=== PATIENT | male | born 1995 | race Caucasian/White ===

== ENCOUNTER 2022-04-30 15:21 | Inpatient (IN) | payer BC ==
--- NOTE | 2022-04-30 16:30 | ED ---
Skin/Abscess/FB HPI - General Chief complaint: Skin/Abscess/Foreign Body Stated complaint: Left leg rash/fever/SOB Time Seen by Provider: 04/30/22 16:29 Source: patient, RN notes reviewed Mode of arrival: ambulatory Limitations: no limitations - History of Present Illness Initial comments: Patient is a 26-year-old male who presents to the emergency department for redness of left leg. Patient states the redness appeared after hitting his leg on the car door today. He is adamant that he did not wake up with leg redness. He reports mild pain in his left freeman which is worsened with walking. He denies calf pain. He denies personal and family history of DVT and PE. He denies tobacco use, recent airplane/long car ride travel, known family clotting disorders. He does admit to exertional shortness of breath and cold-like symptoms which began on Thursday. Patient has fever productive cough and congestion which he states is improving. No chest pain. - Related Data Home Medications Medication Instructions Recorded Confirmed No Known Home Medications 04/30/22 04/30/22 Allergies Allergy/AdvReac Type Severity Reaction Status Date / Time No Known Allergies Allergy Verified 04/30/22 17:21 Review of Systems ROS Statement: Those systems with pertinent positive or pertinent negative responses have been documented in the HPI. ROS Other: All systems not noted in ROS Statement are negative. Past Medical History Past Medical History: No Reported History History of Any Multi-Drug Resistant Organisms: None Reported Past Surgical History: No Surgical Hx Reported Past Psychological History: No Psychological Hx Reported Smoking Status: Light tobacco smoker Past Alcohol Use History: Occasional Past Drug Use History: None Reported General Exam Limitations: no limitations General appearance: alert, in no apparent distress Respiratory exam: Present: normal lung sounds bilaterally. Absent: respiratory distress, wheezes, rales, rhonchi, stridor Cardiovascular Exam: Present: normal rhythm, tachycardia, normal heart sounds. Absent: regular rate, systolic murmur, diastolic murmur, rubs, gallop, clicks GI/Abdominal exam: Present: soft, normal bowel sounds. Absent: distended, tenderness, guarding, rebound, rigid Extremities exam: Present: other (erythema, swelling, warmth, blanching of left lower exremity from ankle into proximal freeman. tendern to palpation. cap refill < 2 seconds). Absent: calf tenderness Neurological exam: Present: alert, oriented X3, CN II-XII intact Psychiatric exam: Present: normal affect, normal mood Skin exam: Present: warm, dry, intact, normal color. Absent: rash Course Vital Signs 04/30/22 04/30/22 04/30/22 15:25 18:05 20:30 Temperature 102.8 F H Pulse Rate 151 H 130 H 125 H Respiratory 24 20 20 Rate Blood Pressure 164/86 144/71 139/59 O2 Sat by Pulse 99 98 99 Oximetry Medical Decision Making - Medical Decision Making EKG taken at 18:17, was interpreted by me Sinus tachycardia, no ST segment or T-wave abnormality Ventricular 124, NC interval 178, QRS duration 106, QTC 380 Was pt. sent in by a medical professional or institution ([facility], [facility], urgent care, hospital, or skilled nursing...) When possible be specific @ -No Did you speak to anyone other than the patient for history (EMS, parent, family, police, friend...)? What history was obtained from this source @ -No Did you review nursing and triage notes (agree or disagree)? Why? @ -I reviewed and agree with nursing and triage notes Were old charts reviewed (outside hosp., previous admission, EMS record, old EKG, old radiological studies, urgent care reports/EKG's, skilled nursing records)? Report findings @ -No old charts were reviewed Differential Diagnosis (chest pain, altered mental status, abdominal pain women, abdominal pain men, vaginal bleeding, weakness, fever, dyspnea, syncope, headache, dizziness, GI bleed, back pain, seizure, CVA, palpatations, mental health)? @ -DVT, cellulitis, sepsis, pneumonia, URI EKG interpreted by me (3pts min.). @ -As above X-rays interpreted by me (1pt min.). @ -Yes. Chest x-ray shows increased basilar airspace opacities. Left tibia- fibula x-ray negative for acute process CT interpreted by me (1pt min.). @ -None done U/S interpreted by me (1pt. min.). @ -None done What testing was considered but not performed or refused? (CT, X-rays, U/S, labs)? Why? @ -None What meds were considered but not given or refused? Why? @ -None Did you discuss the management of the patient with other professionals (professionals i.e. , PA, [facility], lab, RT, psych nurse, social worker clinical, ore washer, teacher, psychological operations officer, manager of case)? Give summary @ -No Was smoking cessation discussed for >3mins.? @ -No Was critical care preformed (if so, how long)? @ -No Were there social determinants of health that impacted care today? How? (Homelessness, low income, unemployed, alcoholism, drug addiction, transportation, low edu. Level, literacy, decrease access to med. care, longterm, rehab)? @ -No Was there de-escalation of care discussed even if they declined (Discuss DNR or withdrawal of care, Hospice)? DNR status @ -No What co-morbidities impacted this encounter? (DM, HTN, Smoking, COPD, CAD, Cancer, CVA, ARF, Chemo, Hep., AIDS, mental health diagnosis, sleep apnea, morbid obesity)? @ -None Was patient admitted / discharged? Hospital course, mention meds given and route, prescriptions, significant lab abnormalities, going to OR and other pertinent info. @ -Patient presenting with LLE extremity swelling and exertional shortness of breath. He is well-appearing. No evidence of respiratory distress. No hypoxia. Patient is febrile at 102.6F. There is high suspicion for cellulitis of the LLE. Patient is tachycardic at 150. Blood cultures ordered. IV fluids initiated. Laboratory studies significant for leukocytosis of 22.6. D-dimer is elevated at 1.35. Chest xray shows increased basilar airspace opacities. Patient is septic secondary to pneumonia versus cellulitis, time of diagnosis 18:06. Rocephin and azithromycin initiated. CT of the chest with angio obtained which was nondiagnostic for PE due to bolus timing. Patient is not hypoxic. He does not appear short of breath. He is resting comfortably in bed. I suspect tachycardia related to sepsis. Patient will be admitted. Case discussed with Dr. Giron who accepts admission. Discussed inconclusive CT imaging. Heparin will not be started at this time. Pulm on consult. Undiagnosed new problem with uncertain prognosis? @ -No Drug Therapy requiring intensive monitoring for toxicity (Heparin, Nitro, Insulin, Cardizem)? @ -No Were any procedures done? @ -No] Diagnosis/symptom? @ -sepsis, cellulitis, pneumonia Acute, or Chronic, or Acute on Chronic? @ -acute Uncomplicated (without systemic symptoms) or Complicated (systemic symptoms)? @ -uncomplicated Side effects of treatment? @ -[No] Exacerbation, Progression, or Severe Exacerbation? @ -[No] Poses a threat to life or bodily function? How? (Chest pain, [place], [place], pneumonia, PE, COPD, DKA, ARF, appy, cholecystitis, CVA, Diverticulitis, Homicidal, Suicidal, threat to staff... and all critical care pts) @ yes Dr. Acevedo is my attending - Lab Data Result diagrams: 04/30/22 17:29 04/30/22 17:29 Lab Results 04/30/22 04/30/22 04/30/22 Range/Units 17:29 17:29 17:29 WBC 22.6 H (3.8-10.6) k/uL RBC 4.73 (4.30-5.90) m/uL Hgb 14.3 (13.0-17.5) gm/dL Hct 42.7 (39.0-53.0) % MCV 90.2 (80.0-100.0) fL MCH 30.2 (25.0-35.0) pg MCHC 33.4 (31.0-37.0) g/dL RDW 13.1 (11.5-15.5) % Plt Count 285 (150-450) k/uL MPV 8.5 Neutrophils % 92 % Lymphocytes % 4 % Monocytes % 3 % Eosinophils % 0 % Basophils % 0 % Neutrophils # 20.9 H (1.3-7.7) k/uL Lymphocytes # 0.9 L (1.0-4.8) k/uL Monocytes # 0.6 (0-1.0) k/uL Eosinophils # 0.1 (0-0.7) k/uL Basophils # 0.0 (0-0.2) k/uL D-Dimer 1.35 H (<0.60) mg/L FEU Sodium (137-145) mmol/L Potassium (3.5-5.1) mmol/L Chloride (98-107) mmol/L Carbon Dioxide (22-30) mmol/L Anion Gap mmol/L BUN (9-20) mg/dL Creatinine (0.66-1.25) mg/dL Est GFR (CKD-EPI)AfAm (>60 ml/min/1.73 sqM) Est GFR (CKD-EPI)NonAf (>60 ml/min/1.73 sqM) Glucose (74-99) mg/dL Plasma Lactic Acid Nick (0.7-2.0) mmol/L Calcium (8.4-10.2) mg/dL Total Bilirubin (0.2-1.3) mg/dL AST (17-59) U/L ALT (4-49) U/L Alkaline Phosphatase (38-126) U/L Total Protein (6.3-8.2) g/dL Albumin (3.5-5.0) g/dL Influenza Type A (PCR) Not Detected (Not Detectd) Influenza Type B (PCR) Not Detected (Not Detectd) RSV (PCR) Not Detected (Not Detectd) SARS-CoV-2 (PCR) Not Detected (Not Detectd) 04/30/22 04/30/22 Range/Units 17:29 20:00 WBC (3.8-10.6) k/uL RBC (4.30-5.90) m/uL Hgb (13.0-17.5) gm/dL Hct (39.0-53.0) % MCV (80.0-100.0) fL MCH (25.0-35.0) pg MCHC (31.0-37.0) g/dL RDW (11.5-15.5) % Plt Count (150-450) k/uL MPV Neutrophils % % Lymphocytes % % Monocytes % % Eosinophils % % Basophils % % Neutrophils # (1.3-7.7) k/uL Lymphocytes # (1.0-4.8) k/uL Monocytes # (0-1.0) k/uL Eosinophils # (0-0.7) k/uL Basophils # (0-0.2) k/uL D-Dimer (<0.60) mg/L FEU Sodium 136 L (137-145) mmol/L Potassium 4.0 (3.5-5.1) mmol/L Chloride 100 (98-107) mmol/L Carbon Dioxide 23 (22-30) mmol/L Anion Gap 13 mmol/L BUN 12 (9-20) mg/dL Creatinine 1.10 (0.66-1.25) mg/dL Est GFR (CKD-EPI)AfAm >90 (>60 ml/min/1.73 sqM) Est GFR (CKD-EPI)NonAf >90 (>60 ml/min/1.73 sqM) Glucose 114 H (74-99) mg/dL Plasma Lactic Acid Nick 1.5 (0.7-2.0) mmol/L Calcium 9.3 (8.4-10.2) mg/dL Total Bilirubin 0.9 (0.2-1.3) mg/dL AST 38 (17-59) U/L ALT 54 H (4-49) U/L Alkaline Phosphatase 60 (38-126) U/L Total Protein 7.9 (6.3-8.2) g/dL Albumin 4.6 (3.5-5.0) g/dL Influenza Type A (PCR) (Not Detectd) Influenza Type B (PCR) (Not Detectd) RSV (PCR) (Not Detectd) SARS-CoV-2 (PCR) (Not Detectd) Disposition Clinical Impression: Pneumonia, Sepsis, Cellulitis Disposition: ADMITTED IP TO THIS [facility] Condition: Stable Instructions (If sedation given, give patient instructions): Moderate Sedation in Children (ED) Referrals: Aakash Marin MD [Primary Care Provider] - 1-2 days
--- NOTE | 2022-04-30 17:25 | US ---
EXAMINATION TYPE: US venous doppler duplex LE LT DATE OF EXAM: 04/30/2022 5:18 PM COMPARISON: NONE CLINICAL HISTORY: Left lower extremity swelling and redness. SIDE PERFORMED: Left TECHNIQUE: The lower extremity deep venous system is examined utilizing real time linear array sonog bryant with graded compression, doppler sonography and color-flow sonography. VESSELS IMAGED: Common Femoral Vein Deep Femoral Vein Greater Saphenous Vein * Femoral Vein Popliteal Vein Small Saphenous Vein * Proximal Calf Veins (* superficial vessels) Left Leg: Negative for DVT. Severely limited visualization of the deep venous system entirely from t he groin to the calf due to body habitus and tissue edema. Prominent lymph nodes visualized in the g roin. Grayscale, color doppler, spectral doppler imaging performed of the deep veins of the lower ex tremities. There is normal flow, compressibility, vascular waveforms. IMPRESSION: Extremely limited exam where visualized, No evidence for deep vein thrombosis.
[2022-04-30] MEDS ORDERED: KETOROLAC 15 MG/ML 1 ML VIAL IVP STA (17:46)
[2022-04-30] MEDS ORDERED: SODIUM CHLORIDE 0.9% 2,000 ML IV STA (17:46)
[2022-04-30 18:05] LABS: Basophils % (A) 0 %; Eosinophils # (A) 0.1 k/uL (0-0.7); Eosinophils % (A) 0 %; HCT 42.7 % (39.0-53.0); HGB 14.3 gm/dL (13.0-17.5); Lymphocytes # (A) 0.9 k/uL (1.0-4.8); Lymphocytes % (A) 4 %; MCH 30.2 pg (25.0-35.0); MCHC 33.4 g/dL (31.0-37.0); MCV 90.2 fL (80.0-100.0); Mean Platelet Volume 8.5; Monocytes # (A) 0.6 k/uL (0-1.0); Monocytes % (A) 3 %; Neutrophils # (A) 20.9 k/uL (1.3-7.7); Neutrophils % (A) 92 %; Platelet Count 285 k/uL (150-450); RBC 4.73 m/uL (4.30-5.90); RDW 13.1 % (11.5-15.5); WBC 22.6 k/uL (3.8-10.6)
--- NOTE | 2022-04-30 18:09 | XR ---
EXAMINATION TYPE: XR chest 2V DATE OF EXAM: 04/30/2022 5:39 PM COMPARISON: None TECHNIQUE: XR chest 2V Frontal and lateral views of the chest. CLINICAL INDICATION:Male, 26 years old with history of cough fever; FINDINGS: Lungs/Pleura: Increased basilar airspace opacities. There is no evidence of pleural effusion, or pneu mothorax. Pulmonary vascularity: Unremarkable. Heart/mediastinum: Cardiomediastinal silhouette is unremarkable. Musculoskeletal: No acute osseous pathology. IMPRESSION: Increased basilar airspace opacities correlate for pneumonia
--- NOTE | 2022-04-30 18:10 | XR ---
EXAMINATION TYPE: XR tibia fibula LT DATE OF EXAM: 04/30/2022 5:39 PM INDICATION: Patient age:Male; 26 years old; Reason for study: injury; COMPARISON: None TECHNIQUE: The left tibia/fibula was examined in AP and lateral projections. FINDINGS: No evidence of any acute osseous pathology, joint dislocation, or soft tissue swelling is n oted. Calcaneal plantar enthesophyte Achilles spurring. Patella osteophyte formation. IMPRESSION: 1. No evidence of acute fracture. 2. Mild knee osteoarthrosis.
[2022-04-30 18:12] LABS: ALT 54 U/L (4-49); AST 38 U/L (17-59); African American GFR (CKD) >90 (>60 ml/min/1.73 sqM); Albumin 4.6 g/dL (3.5-5.0); Alkaline Phosphatase 60 U/L (38-126); Anion Gap 13 mmol/L; Blood Urea Nitrogen 12 mg/dL (9-20); Calcium 9.3 mg/dL (8.4-10.2); Carbon Dioxide 23 mmol/L (22-30); Chloride 100 mmol/L (98-107); Glucose 114 mg/dL (74-99); Non-African American GFR(CKD) >90 (>60 ml/min/1.73 sqM); Sodium 136 mmol/L (137-145); Total Bilirubin 0.9 mg/dL (0.2-1.3); Total Protein 7.9 g/dL (6.3-8.2)
[2022-04-30] MEDS ORDERED: AZITHROMYCIN 500 MG in SODIUM CHLORIDE 0.9% 250 ML IVPB STA (18:28)
[2022-04-30] MEDS ORDERED: SODIUM CHLORIDE 0.9% 1,000 ML IV STA (19:21)
--- NOTE | 2022-04-30 19:36 | CT ---
EXAMINATION TYPE: CT chest angio for PE CT DLP: 1143.4 mGycm, Automated exposure control for dose reduction was used. DATE OF EXAM: 04/30/2022 7:30 PM COMPARISON: Chest radiograph from same day. CLINICAL INDICATION:Male, 26 years old with history of SOB elevated dimer; elevated d-dimer TECHNIQUE/CONTRAST: CTA scan of the thorax is performed with IV Contrast, patient injected with 100 mL of Isovue 370, pul monary embolism protocol. MIP images are created and reviewed [facility] FINDINGS: Pulmonary Artery: Nondiagnostic exam for pulmonary embolus due to bolus timing. Lungs/Pleura: No evidence of focal consolidation, pleural effusion or pneumothorax. Airway: Large airways are patent. Heart: Heart is within normal limits for size. Vasculature: No evidence of aortic aneurysm. Mediastinum: No gross evidence of adenopathy. Musculoskeletal: No acute osseous abnormalities Soft Tissues: Unremarkable. Lower neck: No significant findings. Upper Abdomen: Diffuse low-attenuation to the liver parenchyma. IMPRESSION: 1. Nondiagnostic exam for PE due to bolus timing. 2. No acute thoracic process. 3. Hepatic steatosis.
[2022-04-30] MEDS ORDERED: NALOXONE 0.4 MG/ML 1 ML VIAL IV PRN (20:20)
[2022-05-01] MEDS ORDERED: ACETAMINOPHEN TAB 325 MG TAB PO STA (04:42)
[2022-05-01] MEDS: SODIUM CHLORIDE 0.9% 1,000 ML IV SCH ×3 (04:55→21:39)
--- NOTE | 2022-05-01 07:15 | P.HPIM ---
History of Present Illness This is a pleasant 26 years old male with no significant past medical history He is morbidly obese, presents because of sepsis patient states that he was trying to get into his car in the morning when he slipped and bumped his left leg into the car, that time he was wearing pants and he does not have any wants By the evening he noticed is getting more tired than his leg is more red and swollen and start hurting him and she was trying to get in and out of the car therefore he decided to come to emergency room. Also he thought he has a cold as his been having cough and shortness of breath but that's all gone NOW. Patient is currently lying in bed comfortable relaxed does not look in distress denies any chest pain or dyspnea or coughing, no headache dizziness weakness or numbness, no change in urine or bowel habits. However he is left leg is significantly swollen and warm including most of the circumference of the leg from above the left ankle to just below the left knee Patient denies smoking alcohol or illicit drugs, he drinks occasionally and he smokes cigar once every 6 months Patient has a fever 102.8 on admission, he was tachycardic with heart rate 123- 151, the 20 but blood pressure normal Patient has also significant leukocytosis at 22.6. BMP is unremarkable. Liver enzymes are not significantly elevated. Versus other undetected including influenza, RSV and coronavirus D-dimer was mildly elevated soft ultrasound of the next was negative for DVT in the left leg. Chest x-ray showed increased vascular opacity correlating for pneumonia. Left fibula and tibia x-rays negative for acute fracture CT of the chest showing nondiagnostic exam for PE with no acute thoracic process and hepatic steatosis however there is no evidence of focal consolidation of the chest x-ray most likely has false positive result. EKG shows sinus tachycardia at 124 Review of Systems Review of systems CONSTITUTIONAL: No fever, no malaise, no fatigue. HEENT: No recent visual problems or hearing problems. Denied any sore throat. CARDIOVASCULAR: No orthopnea, PND, no palpitations, no syncope. PULMONARY: No shortness of breath, no cough, no hemoptysis. GASTROINTESTINAL: No diarrhea, no nausea, no vomiting, no abdominal pain. Normoactive bowel sounds. NEUROLOGICAL: No headaches, no weakness, no numbness. HEMATOLOGICAL: Denies any bleeding or petechiae. GENITOURINARY: Denies any burning micturition, frequency, or urgency. MUSCULOSKELETAL/RHEUMATOLOGICAL: Denies any joint pain, swelling, or any muscle pain. ENDOCRINE: Denies any polyuria or polydipsia. Past Medical History Past Medical History: No Reported History History of Any Multi-Drug Resistant Organisms: None Reported Past Surgical History: No Surgical Hx Reported Past Psychological History: No Psychological Hx Reported Smoking Status: Light tobacco smoker Past Alcohol Use History: Occasional Past Drug Use History: None Reported Medications and Allergies Home Medications Medication Instructions Recorded Confirmed Type No Known Home Medications 04/30/22 04/30/22 History Allergies Allergy/AdvReac Type Severity Reaction Status Date / Time No Known Allergies Allergy Verified 04/30/22 17:21 Physical Exam Vitals: Vital Signs Temp Pulse Resp BP Pulse Ox 04/30/22 22:13 123 H 20 145/72 95 04/30/22 21:28 100.3 F H 04/30/22 20:30 125 H 20 139/59 99 04/30/22 18:05 130 H 20 144/71 98 04/30/22 15:25 102.8 F H 151 H 24 164/86 99 Intake and Output 04/30/22 04/30/22 05/01/22 14:59 22:59 06:59 Other: Weight 258.593 kg -GENERAL: The patient is alert and oriented x3, not in any acute distress. Moderately obese HEENT: Pupils are round and equally reacting to light. EOMI. No scleral icterus. No conjunctival pallor. Normocephalic, atraumatic. No pharyngeal erythema. No thyromegaly. CARDIOVASCULAR: S1 and S2 present. No murmurs, rubs, or gallops. PULMONARY: Chest is clear to auscultation, no wheezing or crackles. ABDOMEN: Soft, nontender, nondistended, normoactive bowel sounds. No palpable organomegaly. MUSCULOSKELETAL: No joint swelling or deformity. -EXTREMITIES: No cyanosis, clubbing, or pedal edema. Left leg between the left knee and left ankle is red swollen tender and warm NEUROLOGICAL: Gross neurological examination did not reveal any focal deficits. SKIN: No rashes. no petechiae. Results CBC & Chem 7: 04/30/22 17:29 04/30/22 17:29 Labs: Abnormal Lab Results - Last 24 Hours (Table) 04/30/22 04/30/2223 Range/Units 17:29 17:29 17:29 WBC 22.6 H (3.8-10.6) k/uL Neutrophils # 20.9 H (1.3-7.7) k/uL Lymphocytes # 0.9 L (1.0-4.8) k/uL D-Dimer 1.35 H (<0.60) mg/L FEU Sodium 136 L (137-145) mmol/L Glucose 114 H (74-99) mg/dL ALT 54 H (4-49) U/L Assessment and Plan Assessment: Leg cellulitis secondary to blunt trauma Severe sepsis present on admission with fever and tachycardia and tachypnea Morbid obesity Plan: Continue with IV antibiotic, The patient was started on cefazolin Continue with excessive IV hydration Follow-up culture results Consults infectious disease team consult ID team Labs and medication were reviewed.. Continue same treatment. Continue with symptomatic treatment. Resume home medication. Monitor labs and vitals. DVT and GI prophylaxis. Further recommendations as per clinical course of the patient DVT prophylaxis: Subcutaneous heparin GI Prophylaxis: Pepcid PT/OT: Pending Prognosis is guarded
[2022-05-01] MEDS: ACETAMINOPHEN TAB 325 MG TAB PO PRN ×3 (07:27→21:37)
[2022-05-01] MEDS: FAMOTIDINE 20 MG/2 ML VIAL IV SCH ×2 (08:27→22:37)
[2022-05-01] MEDS: HEPARIN SODIUM,PORCINE/PF 5,000 UNIT/0.5 ML SYRINGE SQ SCH ×2 (08:28→22:37)
[2022-05-01 10:39] LABS: Basophils # (A) 0.02 X 10*3/uL (0.00-0.10); Basophils % (A) 0.1 %; Eosinophils # (A) 0 X 10*3/uL (0.04-0.35); Eosinophils % (A) 0 %; HCT 38.8 % (39.6-50.0); HGB 12.6 g/dL (13.0-17.0); Immature Grans, Automated 0.4 %; Lymphocytes # (A) 1.21 X 10*3/uL (0.90-5.00); Lymphocytes % (A) 7.5 %; MCH 29.4 pg (27.0-32.0); MCHC 32.5 g/dL (32.0-37.0); MCV 90.7 fL (80.0-97.0); Mean Platelet Volume 11.2 fL (9.5-12.2); Monocytes % (A) 3.1 %; NRBC Per 100 WBC 0 /100 WBCS (0.0-0.0); Neutrophils # (A) 14.37 X 10*3/uL (1.80-7.70); Neutrophils % (A) 88.9 %; Platelet Count 238 X 10*3/uL (140-440); RBC 4.28 X 10*6/uL (4.40-5.60); RDW 13.5 % (11.5-14.5); WBC 16.16 X 10*3/uL (4.50-10.00)
[2022-05-01 10:52] LABS: African American GFR (CKD) 108.3 (60.0-200.0); BUN/Creat Ratio 10.64 Ratio (12.00-20.00); Blood Urea Nitrogen 11.7 mg/dL (9.0-27.0); Calcium 8.6 mg/dL (8.7-10.3); Non-African American GFR(CKD) 93.5 (60.0-200.0); Potassium 3.7 mmol/L (3.5-5.5)
[2022-05-01] MEDS: ceFAZolin 3 GM in SODIUM CHLORIDE 0.9% 100 ML IVPB SCH (15:50)
[2022-05-01] MEDS ORDERED: IBUPROFEN 200 MG TAB PO PRN (16:03)
--- NOTE | 2022-05-01 22:50 | P.CONS ---
History of Present Illness - Reason for Consult Consult date: 05/01/22 Cellulitis Requesting physician: Mickey Giron - Chief Complaint Left lower extremity swelling and redness x one day - History of Present Illness Patient is a 26-year-old male with no significant past medical history presenting to the ER for evaluation of left lower extremity swelling and redness currently has been going on for for a day before presentation to the hospital patient mentioned that redness appeared after hitting his leg on the car door the day of presentation to the hospital patient did not have any laceration skin breakdown or any drainage the redness has significantly progressed very quickly over the few hours patient be complaining of pain to the left lower extremity be more of a dull aching to sharp it is about 2 out of 10 when he is lying in the bed however is about 5 out of 10 when he walks no open wound or any drainage and did have a fever with chills on presentation to the hospital patient did have a fever of 102.8 degree for night patient has been tachycardic he did have a white count of 22,000 with a left shift kidney function has been normal liver enzymes are normal influenza RSV and COVID testing has been negative patient did have a CT angiogram of the chest nondiagnostic for PE no acute intrathoracic process venous Doppler Limited exam no evidence of DVT patient was started on cefazolin infectious disease was consulted for further management of antibiotic therapy Review of Systems Positive point has been mentioned in the HPI rest of the systems are negative Past Medical History Past Medical History: No Reported History History of Any Multi-Drug Resistant Organisms: None Reported Past Surgical History: No Surgical Hx Reported Past Psychological History: No Psychological Hx Reported Smoking Status: Light tobacco smoker Past Alcohol Use History: Occasional Past Drug Use History: None Reported Medications and Allergies Home Medications Medication Instructions Recorded Confirmed Type Cephalexin [Keflex] 500 mg PO Q6HR #56 cap 05/05/22 Rx Allergies Allergy/AdvReac Type Severity Reaction Status Date / Time No Known Allergies Allergy Verified 04/30/22 17:21 Physical Exam Vitals: Vital Signs Temp Pulse Resp BP Pulse Ox 05/01/22 11:47 101.9 F H 05/01/22 09:00 101 F H 118 H 20 138/77 96 05/01/22 07:00 100.1 F H 122 H 20 138/77 98 05/01/22 06:07 128 H 16 138/67 97 05/01/22 05:37 99.4 F 127 H 16 96 05/01/22 05:09 125 H 98 05/01/22 03:36 103.2 F H 131 H 18 135/63 98 04/30/22 22:13 123 H 20 145/72 95 04/30/22 21:28 100.3 F H 04/30/22 20:30 125 H 20 139/59 99 04/30/22 18:05 130 H 20 144/71 98 04/30/22 15:25 102.8 F H 151 H 24 164/86 99 Intake and Output 04/30/22 05/01/22 05/01/22 22:59 06:59 14:59 Other: Weight 258.593 kg GENERAL DESCRIPTION: Middle-aged male lying in bed, no distress. No tachypnea or accessory muscle of respiration use. HEENT: Shows Pallor , no scleral icterus. Oral mucous membrane is dry. No pharyngeal erythema or thrush NECK: Trachea central, no thyromegaly. LUNGS: Unlabored breathing. Clear to auscultation anteriorly. No wheeze or crackle. HEART: S1, S2, regular rate and rhythm. No loud murmur ABDOMEN: Soft, no tenderness , guarding or rigidity, no organomegaly EXTREMITIES: Extensive swelling redness left lower extremity, which is warm and tender to touch. SKIN: No rash, no masses palpable. NEUROLOGICAL: The patient is awake, alert, oriented x3, mood and affect normal. Results CBC & Chem 7: 05/05/22 06:40 05/05/22 06:40 Labs: Abnormal Lab Results - Last 24 Hours (Table) 04/30/22 04/30/22 04/30/22 Range/Units 17:29 17:29 17:29 WBC 22.6 H (3.8-10.6) k/uL RBC (4.40-5.60) X 10*6/uL Hgb (13.0-17.0) g/dL Hct (39.6-50.0) % Immature Gran # (0.00-0.04) X 10*3/uL Neutrophils # 20.9 H (1.3-7.7) k/uL Lymphocytes # 0.9 L (1.0-4.8) k/uL Eosinophils # (0.04-0.35) X 10*3/uL D-Dimer 1.35 H (<0.60) mg/L FEU Sodium 136 L (137-145) mmol/L BUN/Creatinine Ratio (12.00-20.00) Ratio Glucose 114 H (74-99) mg/dL Calcium (8.7-10.3) mg/dL ALT 54 H (4-49) U/L Procalcitonin (0.02-0.09) ng/mL 05/01/22 05/01/22 05/01/22 Range/Units 08:07 08:07 08:07 WBC 16.16 H (3.8-10.6) k/uL RBC 4.28 L (4.40-5.60) X 10*6/uL Hgb 12.6 L (13.0-17.0) g/dL Hct 38.8 L (39.6-50.0) % Immature Gran # 0.06 H (0.00-0.04) X 10*3/uL Neutrophils # 14.37 H (1.3-7.7) k/uL Lymphocytes # (1.0-4.8) k/uL Eosinophils # 0 L (0.04-0.35) X 10*3/uL D-Dimer (<0.60) mg/L FEU Sodium (137-145) mmol/L BUN/Creatinine Ratio 10.64 L (12.00-20.00) Ratio Glucose 120 H (74-99) mg/dL Calcium 8.6 L (8.7-10.3) mg/dL ALT (4-49) U/L Procalcitonin 2.10 H (0.02-0.09) ng/mL Assessment and Plan (1) Left leg cellulitis Status: Acute Code(s): L03.116 - CELLULITIS OF LEFT LOWER LIMB SNOMED Code(s): 407332460 (2) Sepsis Status: Acute Code(s): A41.9 - SEPSIS, UNSPECIFIED ORGANISM SNOMED Code(s): 34266666 Plan: 1patient presented to hospital with sepsis in this patient who did have fever tachycardia elevated white count source is extensive left lower extremity cellulitis with rapid progression likely related to streptococcal disease clinically doubt MRSA infection. 2we will increase the dose of cefazolin to 3 g every 8 hours because of normal kidney function and weight 3-marked area of the redness 4May need a CT of the left lower extremity to make sure no evidence of any abscess we will hold on adding in today as the patient has received contrast for CT angiogram of the chest yesterday We will follow on clinical condition and cultures to further adjust medication if needed Thank you for this consultation we will follow the patient along with you Time with Patient: Greater than 30
[2022-05-02] MEDS: ceFAZolin 3 GM in SODIUM CHLORIDE 0.9% 100 ML IVPB SCH ×4 (00:03→23:47)
[2022-05-02] MEDS: IBUPROFEN 600 MG TAB PO PRN ×2 (00:14→21:44)
[2022-05-02] MEDS: CLINDAMYCIN 900 MG in DEXTROSE 5% IN WATER 50 ML IVPB SCH ×8 (01:03→23:47)
[2022-05-02] MEDS: SODIUM CHLORIDE 0.9% 1,000 ML IV SCH ×4 (01:06→21:49)
[2022-05-02] MEDS: ACETAMINOPHEN TAB 325 MG TAB PO PRN ×2 (04:50→13:55)
[2022-05-02 06:46] LABS: Basophils % (A) 0 %; Eosinophils % (A) 0 %; HCT 36.7 % (39.0-53.0); HGB 12.2 gm/dL (13.0-17.5); Lymphocytes # (A) 1.4 k/uL (1.0-4.8); Lymphocytes % (A) 12 %; MCH 30.6 pg (25.0-35.0); MCHC 33.3 g/dL (31.0-37.0); MCV 91.8 fL (80.0-100.0); Mean Platelet Volume 9.8; Monocytes # (A) 0.3 k/uL (0-1.0); Monocytes % (A) 3 %; Neutrophils # (A) 9.7 k/uL (1.3-7.7); Neutrophils % (A) 83 %; Platelet Count 164 k/uL (150-450); RDW 13.7 % (11.5-15.5); WBC 11.8 k/uL (3.8-10.6)
[2022-05-02 06:50] LABS: ALT 42 U/L (4-49); AST 39 U/L (17-59); African American GFR (CKD) >90 (>60 ml/min/1.73 sqM); Albumin 3.4 g/dL (3.5-5.0); Albumin/Globulin Ratio 1.2; Alkaline Phosphatase 51 U/L (38-126); Anion Gap 6 mmol/L; Blood Urea Nitrogen 10 mg/dL (9-20); Calcium 8.1 mg/dL (8.4-10.2); Carbon Dioxide 24 mmol/L (22-30); Chloride 107 mmol/L (98-107); Globulin 2.9 g/dL; Glucose 91 mg/dL (74-99); Non-African American GFR(CKD) >90 (>60 ml/min/1.73 sqM); Potassium 3.9 mmol/L (3.5-5.1); Sodium 137 mmol/L (137-145); Total Bilirubin 0.5 mg/dL (0.2-1.3); Total Protein 6.3 g/dL (6.3-8.2)
[2022-05-02] MEDS: FAMOTIDINE 20 MG/2 ML VIAL IV SCH ×2 (09:10→21:49)
[2022-05-02] MEDS: HEPARIN SODIUM,PORCINE/PF 5,000 UNIT/0.5 ML SYRINGE SQ SCH ×2 (09:10→21:44)
--- NOTE | 2022-05-02 15:49 | P.PN ---
Subjective Progress Note Date: 05/02/22 Principal diagnosis: Sepsis and bilateral lower extremity cellulitis Patient is a 26-year-old male presenting to the hospital with increasing pain swelling redness of left lower extremity along with a fever has been diagnosed with extensive left lower extremity cellulitis with sepsis On today's evaluation that is 05/02/2022, the patient fever pattern has improved and the patient is afebrile this morning, the patient denies having any chest pain or shortness breath occasional coughbut no abdominal pain and denies any worsening pain to the left leg redness has slightly decreased Objective - Vital Signs Vital signs: Vital Signs Temp 98.5 F 05/02/22 08:00 Pulse 104 H 05/02/22 08:00 Resp 16 05/02/22 11:14 BP 127/69 05/02/22 08:00 Pulse Ox 98 05/02/22 08:00 FiO2 Intake & Output 05/01/22 05/02/22 05/02/22 18:59 06:59 18:59 Intake Total 2560 Output Total 900 Balance 1660 Weight 258.593 kg Intake: Intake, IV Titration 1600 Amount Clindamycin 900 mg In 50 Dextrose 5% in Water 50 ml @ 50 mls/hr IVPB Q8HR [facility] Rx#:[id number] Sodium Chloride 0.9% 1, 1500 000 ml @ 150 mls/hr IV . Q6H40M [facility] Rx#:[id number] ceFAZolin 3 gm In Sodium 50 Chloride 0.9% 50 ml @ 100 mls/hr IVPB Q8HR [facility] Rx# :[id number] Oral 960 Output: Urine 900 Other: Voiding Method Toilet Toilet Urinal Urinal - Exam GENERAL DESCRIPTION: Young male lying in bed in no distress RESPIRATORY SYSTEM: Unlabored breathing , decreased breath sounds at bases HEART: S1 S2 regular rate and rhythm , ABDOMEN: Soft , no tenderness EXTREMITIES: Diffuse swelling to the left lower extremity which is warm to touch - Labs CBC & Chem 7: 05/02/22 05:51 05/02/22 05:51 Labs: Abnormal Lab Results - Last 24 Hours (Table) 05/02/22 05/02/22 05/02/22 Range/Units 05:51 05:51 06:57 WBC 11.8 H (3.8-10.6) k/uL RBC 4.00 L (4.30-5.90) m/uL Hgb 12.2 L (13.0-17.5) gm/dL Hct 36.7 L (39.0-53.0) % Neutrophils # 9.7 H (1.3-7.7) k/uL Calcium 8.1 L (8.4-10.2) mg/dL C-Reactive Protein 34.2 H (<1.0) mg/dL Albumin 3.4 L (3.5-5.0) g/dL Microbiology - Last 24 Hours (Table) 05/01/22 08:07 Blood Culture - Preliminary Blood No Growth after 24 hours 04/30/22 20:00 Blood Culture - Preliminary Blood No Growth after 24 hours Assessment and Plan (1) Left leg cellulitis Current Visit: Yes Status: Acute Code(s): L03.116 - CELLULITIS OF LEFT LOWER LIMB SNOMED Code(s): 738941646 (2) Sepsis Current Visit: Yes Status: Acute Code(s): A41.9 - SEPSIS, UNSPECIFIED ORGANISM SNOMED Code(s): 43816667 Plan: 1patient presented to hospital with sepsis in this patient who did have fever tachycardia elevated white count source is extensive left lower extremity cellulitis with rapid progression likely related to streptococcal disease clinically doubt MRSA infection. 2patient will continue with cefazolin to 3 g every 8 hours along with clindamycin because of extensive cellulitis Gopi wrap to the leg to keep the swelling down Time with Patient: Less than 30
[2022-05-03] MEDS: SODIUM CHLORIDE 0.9% 1,000 ML IV SCH ×4 (03:51→23:22)
--- NOTE | 2022-05-03 07:18 | PN ---
PROGRESS NOTE DATE OF SERVICE: 05/03/2022 This 26-year-old gentleman who was admitted with cellulitis, placed on broad- spectrum IV antibiotics. No chest pain. No palpitation. Infectious Disease following the patient closely. EXAM: VITAL SIGNS: Pulse is 106, blood pressure n, respiration 18. CHEST: Clear to auscultation. ABDOMEN: Soft. LEGS: Left leg cellulitis present. LABORATORY DATA: Reviewed. ASSESSMENT: 1. Acute severe cellulitis on the left leg secondary to blunt trauma. 2. Severe sepsis present on admission with fever, tachycardia, tachypnea. 3. Morbid obesity. RECOMMENDATIONS: Recommend to continue current medications, symptomatic treatment. Otherwise at this time, I recommend continue with the antibiotics. Closely follow with Infectious Disease. Follow the cultures. Repeat labs. Guarded prognosis. Further recommendations to follow. MMODL / IJN: [id number] / MTDD
[2022-05-03 09:21] LABS: Basophils # (A) 0.02 X 10*3/uL (0.00-0.10); Basophils % (A) 0.2 %; Eosinophils # (A) 0.02 X 10*3/uL (0.04-0.35); Eosinophils % (A) 0.2 %; HCT 35.4 % (39.6-50.0); HGB 11.1 g/dL (13.0-17.0); Immature Grans, Automated 0.3 %; Lymphocytes # (A) 1.55 X 10*3/uL (0.90-5.00); Lymphocytes % (A) 14.3 %; MCH 29.5 pg (27.0-32.0); MCHC 31.4 g/dL (32.0-37.0); MCV 94.1 fL (80.0-97.0); Mean Platelet Volume 11.5 fL (9.5-12.2); Monocytes # (A) 0.83 X 10*3/uL (0.20-1.00); Monocytes % (A) 7.7 %; NRBC Per 100 WBC 0 /100 WBCS (0.0-0.0); Neutrophils # (A) 8.37 X 10*3/uL (1.80-7.70); Neutrophils % (A) 77.3 %; Platelet Count 232 X 10*3/uL (140-440); RBC 3.76 X 10*6/uL (4.40-5.60); WBC 10.82 X 10*3/uL (4.50-10.00)
[2022-05-03 09:53] LABS: African American GFR (CKD) 144.9 (60.0-200.0); Anion Gap 16.2 mmol/L (10.00-18.00); BUN/Creat Ratio 11.25 Ratio (12.00-20.00); Calcium 8.5 mg/dL (8.7-10.3); Carbon Dioxide 17.8 mmol/L (20.0-27.5); Potassium 3.8 mmol/L (3.5-5.5)
[2022-05-03] MEDS: HEPARIN SODIUM,PORCINE/PF 5,000 UNIT/0.5 ML SYRINGE SQ SCH ×2 (10:22→21:32)
[2022-05-03] MEDS: FAMOTIDINE 20 MG/2 ML VIAL IV SCH ×2 (10:22→21:31)
[2022-05-03] MEDS: ceFAZolin 3 GM in SODIUM CHLORIDE 0.9% 100 ML IVPB SCH ×3 (10:22→23:22)
[2022-05-03] MEDS: CLINDAMYCIN 900 MG in DEXTROSE 5% IN WATER 50 ML IVPB SCH ×4 (10:22→17:20)
--- NOTE | 2022-05-03 16:33 | PN ---
PROGRESS NOTE DATE OF SERVICE: 05/03/2022 SUBJECTIVE: This is a 26-year-old gentleman who was admitted with cellulitis, also had some blunt trauma. The patient also has evidence of sepsis. No chest pain. No palpitation. OBJECTIVE: VITAL SIGNS: Pulse is 104, blood pressure is 132/60, respirations 21. CHEST: Few scattered rhonchi. ABDOMEN: Soft. LEGS: Bilateral leg cellulitis. LABORATORY DATA: WBC 10.82. Other labs are noted. ASSESSMENT: 1. Acute severe cellulitis of the left leg secondary to blunt trauma. 2. Severe sepsis present on admission with fever, tachycardia, tachypnea. 3. Elevated procalcitonin. 4. Morbid obesity. RECOMMENDATIONS: Recommend to continue current medications. Continue with antibiotics. We will closely follow with Infectious Disease. I would also recommend repeat labs in the morning. Further recommendations to follow. ARLIN / DEE DEE: [id number] /
[2022-05-03] MEDS: IBUPROFEN 600 MG TAB PO PRN (17:29)
[2022-05-03] MEDS: HYDROcodone/APAP 5-325MG 1 EACH TAB PO PRN (18:32)
[2022-05-03] MEDS ORDERED: LOPERAMIDE 2 MG CAP PO PRN (18:47)
[2022-05-04] MEDS: CLINDAMYCIN 900 MG in DEXTROSE 5% IN WATER 50 ML IVPB SCH ×6 (00:12→15:38)
[2022-05-04] MEDS: SODIUM CHLORIDE 0.9% 1,000 ML IV SCH ×3 (05:54→21:24)
[2022-05-04] MEDS: ceFAZolin 3 GM in SODIUM CHLORIDE 0.9% 100 ML IVPB SCH ×2 (08:54→15:38)
[2022-05-04] MEDS: HYDROcodone/APAP 5-325MG 1 EACH TAB PO PRN ×3 (08:55→21:29)
[2022-05-04] MEDS: HEPARIN SODIUM,PORCINE/PF 5,000 UNIT/0.5 ML SYRINGE SQ SCH ×2 (08:55→21:26)
[2022-05-04] MEDS: FAMOTIDINE 20 MG/2 ML VIAL IV SCH ×2 (08:57→21:26)
[2022-05-04 09:15] LABS: Basophils # (A) 0.04 X 10*3/uL (0.00-0.10); Basophils % (A) 0.4 %; Eosinophils # (A) 0.04 X 10*3/uL (0.04-0.35); Eosinophils % (A) 0.4 %; HCT 37.1 % (39.6-50.0); HGB 11.5 g/dL (13.0-17.0); Immature Grans, Automated 1.3 %; Lymphocytes # (A) 1.72 X 10*3/uL (0.90-5.00); Lymphocytes % (A) 16.6 %; MCH 29.3 pg (27.0-32.0); MCV 94.6 fL (80.0-97.0); Mean Platelet Volume 11.3 fL (9.5-12.2); Monocytes % (A) 6.8 %; NRBC Per 100 WBC 0 /100 WBCS (0.0-0.0); Neutrophils # (A) 7.72 X 10*3/uL (1.80-7.70); Neutrophils % (A) 74.5 %; Platelet Count 243 X 10*3/uL (140-440); RBC 3.92 X 10*6/uL (4.40-5.60); RDW 13.9 % (11.5-14.5); WBC 10.35 X 10*3/uL (4.50-10.00)
[2022-05-04 09:48] LABS: African American GFR (CKD) 151.7 (60.0-200.0); Anion Gap 11.9 mmol/L (10.00-18.00); BUN/Creat Ratio 11.23 Ratio (12.00-20.00); Calcium 8.7 mg/dL (8.7-10.3); Carbon Dioxide 23.9 mmol/L (20.0-27.5); Non-African American GFR(CKD) 130.9 (60.0-200.0); Potassium 3.9 mmol/L (3.5-5.5)
--- NOTE | 2022-05-04 13:39 | P.PN ---
Subjective Progress Note Date: 05/04/22 This is a pleasant 26 years old male with no significant past medical history He is morbidly obese, presents because of sepsis patient states that he was trying to get into his car in the morning when he slipped and bumped his left leg into the car, that time he was wearing pants . By the evening he noticed is getting more tired than his leg is more red and swollen and start hurting him and she was trying to get in and out of the car therefore he decided to come to emergency room. Also he thought he has a cold as his been having cough and shortness of breath but that's all gone NOW. Patient is currently lying in bed comfortable relaxed does not look in distress denies any chest pain or dyspnea or coughing, no headache dizziness weakness or numbness, no change in urine or bowel habits. However he is left leg is significantly swollen and warm including most of the circumference of the leg from above the left ankle to just below the left knee Patient denies smoking alcohol or illicit drugs, he drinks occasionally and he smokes cigar once every 6 months Patient has a fever 102.8 on admission, he was tachycardic with heart rate 123- 151, the 20 but blood pressure normal Patient has also significant leukocytosis at 22.6. BMP is unremarkable. Liver enzymes are not significantly elevated. Versus other undetected including influenza, RSV and coronavirus D-dimer was mildly elevated soft ultrasound of the next was negative for DVT in the left leg. Chest x-ray showed increased vascular opacity correlating for pneumonia. Left fibula and tibia x-rays negative for acute fracture CT of the chest showing nondiagnostic exam for PE with no acute thoracic process and hepatic steatosis however there is no evidence of focal consolidation of the chest x-ray most likely has false positive result. EKG shows sinus tachycardia at 124 05/04. Patient seen and examined. States left lower extremity swelling has improved. No acute issues overnight. Vital signs stable REVIEW OF SYSTEMS: CONSTITUTIONAL: No fever, no malaise,. CARDIOVASCULAR: No chest pain, no palpitations, no syncope. PULMONARY: No shortness of breath, no cough, GASTROINTESTINAL: No diarrhea, no nausea, no vomiting, no abdominal pain. NEUROLOGICAL: No headaches, no weakness, PHYSICAL EXAMINATION: GENERAL: The patient is alert and oriented x3, not in any acute distress. Well developed, well nourished. HEENT: Pupils are round and equally reacting to light. EOMI. No scleral icterus. No conjunctival pallor. Normocephalic, atraumatic. No pharyngeal erythema. No thyromegaly. CARDIOVASCULAR: S1 and S2 present. No murmurs, rubs, or gallops. PULMONARY: Chest is clear to auscultation, no wheezing or crackles. ABDOMEN: Soft, nontender, nondistended, normoactive bowel sounds. No palpable organomegaly. MUSCULOSKELETAL: No joint swelling or deformity. EXTREMITIES: Left lower extremity bandage NEUROLOGICAL: Gross neurological examination did not reveal any focal deficits. SKIN: No rashes. Assessment and plan Leg cellulitis secondary to blunt trauma Severe sepsis present on admission with fever and tachycardia and tachypnea Morbid obesity Plan Monitor vital signs Monitor CBC Monitor CMP Continue telemetry monitoring Follow-up on blood cultures Continue IV cefazolin and clindamycin Follow-up in ID recs DVT prophylaxis: Objective - Vital Signs Vital signs: Vital Signs Temp 98.4 F 05/04/22 08:00 Pulse 101 H 05/04/22 08:00 Resp 18 05/04/22 08:00 BP 143/85 05/04/22 08:00 Pulse Ox 98 05/04/22 08:00 FiO2 Intake & Output 05/03/22 05/04/22 05/04/22 18:59 06:59 18:59 Other: Voiding Method Toilet Toilet Urinal Urinal # Voids 6 3 # Bowel Movements 2 - Labs CBC & Chem 7: 05/04/22 05:18 05/04/22 05:18 Labs: Abnormal Lab Results - Last 24 Hours (Table) 05/04/22 05/04/22 Range/Units 05:18 05:18 WBC 10.35 H (4.50-10.00) X 10*3/uL RBC 3.92 L (4.40-5.60) X 10*6/uL Hgb 11.5 L (13.0-17.0) g/dL Hct 37.1 L (39.6-50.0) % MCHC 31.0 L (32.0-37.0) g/dL Immature Gran # 0.13 H (0.00-0.04) X 10*3/uL Neutrophils # 7.72 H (1.80-7.70) X 10*3/uL BUN 8.0 L (9.0-27.0) mg/dL BUN/Creatinine Ratio 11.23 L (12.00-20.00) Ratio Microbiology - Last 24 Hours (Table) 05/01/22 08:07 Blood Culture - Preliminary Blood No Growth after 72 hours 05/02/22 05:51 Blood Culture - Preliminary Blood No Growth after 48 hours 04/30/22 20:00 Blood Culture - Preliminary Blood No Growth after 72 hours
[2022-05-04 19:37] VITALS: RESP 16
--- NOTE | 2022-05-04 23:13 | P.PN ---
Subjective Progress Note Date: 05/03/22 Principal diagnosis: Sepsis and bilateral lower extremity cellulitis Patient is a 26-year-old male presenting to the hospital with increasing pain swelling redness of left lower extremity along with a fever has been diagnosed with extensive left lower extremity cellulitis with sepsis On today's evaluation that is 05/03/2022, the patient is afebrile this morning, the patient denies having any chest pain or shortness breath occasional coughbut no abdominal pain and the pt pain to the left leg redness has slightly decreased Objective - Vital Signs Vital signs: Vital Signs Temp 98.2 F 05/03/22 07:33 Pulse 101 H 05/03/22 07:33 Resp 18 05/03/22 07:33 BP 157/81 05/03/22 07:33 Pulse Ox 95 05/03/22 07:33 FiO2 Intake & Output 05/02/22 05/03/22 05/03/22 18:59 06:59 18:59 Intake Total 1080 Balance 1080 Intake: Oral 1080 Other: Voiding Method Toilet Toilet Urinal Urinal # Voids 3 3 - Exam GENERAL DESCRIPTION: Young male lying in bed in no distress RESPIRATORY SYSTEM: Unlabored breathing , decreased breath sounds at bases HEART: S1 S2 regular rate and rhythm , ABDOMEN: Soft , no tenderness EXTREMITIES: Diffuse swelling to the left lower extremity which is warm to touch - Labs CBC & Chem 7: 05/04/22 05:18 05/04/22 05:18 Labs: Abnormal Lab Results - Last 24 Hours (Table) 05/03/22 05/03/22 Range/Units 04:10 04:15 WBC 10.82 H (4.50-10.00) X 10*3/uL RBC 3.76 L (4.40-5.60) X 10*6/uL Hgb 11.1 L (13.0-17.0) g/dL Hct 35.4 L (39.6-50.0) % MCHC 31.4 L (32.0-37.0) g/dL Neutrophils # 8.37 H (1.80-7.70) X 10*3/uL Eosinophils # 0.02 L (0.04-0.35) X 10*3/uL Carbon Dioxide 17.8 L (20.0-27.5) mmol/L BUN/Creatinine Ratio 11.25 L (12.00-20.00) Ratio Calcium 8.5 L (8.7-10.3) mg/dL Microbiology - Last 24 Hours (Table) 05/01/22 08:07 Blood Culture - Preliminary Blood No Growth after 48 hours 05/02/22 05:51 Blood Culture - Preliminary Blood No Growth after 24 hours 04/30/22 20:00 Blood Culture - Preliminary Blood No Growth after 48 hours Assessment and Plan (1) Left leg cellulitis Current Visit: Yes Status: Acute Code(s): L03.116 - CELLULITIS OF LEFT LOWER LIMB SNOMED Code(s): 454920815 (2) Sepsis Current Visit: Yes Status: Acute Code(s): A41.9 - SEPSIS, UNSPECIFIED [facility] SNOMED Code(s): 74834475 Plan: 1patient presented to hospital with sepsis in this patient who did have fever tachycardia elevated white count source is extensive left lower extremity cellulitis with rapid progression likely related to streptococcal disease clinically doubt MRSA infection. 2patient seems to have shown some clinical improvemnt , fever resolved and wbc tracking down 3- Pt will continue with cefazolin to 3 g every 8 hours along with clindamycin Time with Patient: Less than 30
--- NOTE | 2022-05-04 23:15 | P.PN ---
Subjective Progress Note Date: 05/04/22 Principal diagnosis: Sepsis and bilateral lower extremity cellulitis Patient is a 26-year-old male presenting to the hospital with increasing pain swelling redness of left lower extremity along with a fever has been diagnosed with extensive left lower extremity cellulitis with sepsis On today's evaluation that is 05/04/2022, the patient remains to be afebrile , the patient denies having any chest pain or shortness breath occasional cough , no abdominal pain and the pt pain to the left leg redness has s decreased in intensity Objective - Vital Signs Vital signs: Vital Signs Temp 98.4 F 05/04/22 08:00 Pulse 101 H 05/04/22 08:00 Resp 18 05/04/22 08:00 BP 143/85 05/04/22 08:00 Pulse Ox 98 05/04/22 08:00 FiO2 Intake & Output 05/03/22 05/04/22 05/04/22 18:59 06:59 18:59 Other: Voiding Method Toilet Toilet Toilet Urinal Urinal Urinal # Voids 6 3 # Bowel Movements 2 - Exam GENERAL DESCRIPTION: Young male lying in bed in no distress RESPIRATORY SYSTEM: Unlabored breathing , decreased breath sounds at bases HEART: S1 S2 regular rate and rhythm , ABDOMEN: Soft , no tenderness EXTREMITIES: Diffuse swelling to the left lower extremity , redness and warmth has decreased - Labs CBC & Chem 7: 05/04/22 05:18 05/04/22 05:18 Labs: Abnormal Lab Results - Last 24 Hours (Table) 05/04/22 05/04/22 Range/Units 05:18 05:18 WBC 10.35 H (4.50-10.00) X 10*3/uL RBC 3.92 L (4.40-5.60) X 10*6/uL Hgb 11.5 L (13.0-17.0) g/dL Hct 37.1 L (39.6-50.0) % MCHC 31.0 L (32.0-37.0) g/dL Immature Gran # 0.13 H (0.00-0.04) X 10*3/uL Neutrophils # 7.72 H (1.80-7.70) X 10*3/uL BUN 8.0 L (9.0-27.0) mg/dL BUN/Creatinine Ratio 11.23 L (12.00-20.00) Ratio Microbiology - Last 24 Hours (Table) 05/01/22 08:07 Blood Culture - Preliminary Blood No Growth after 72 hours 05/02/22 05:51 Blood Culture - Preliminary Blood No Growth after 48 hours 04/30/22 20:00 Blood Culture - Preliminary Blood No Growth after 72 hours Assessment and Plan (1) Left leg cellulitis Current Visit: Yes Status: Acute Code(s): L03.116 - CELLULITIS OF LEFT LOWER LIMB SNOMED Code(s): 768781323 (2) Sepsis Current Visit: Yes Status: Acute Code(s): A41.9 - SEPSIS, UNSPECIFIED ORGANISM SNOMED Code(s): 14845059 Plan: 1patient presented to hospital with sepsis in this patient who did have fever tachycardia elevated white count source is extensive left lower extremity cellulitis with rapid progression likely related to streptococcal disease clinically doubt MRSA infection. 2patient seems to have shown some clinical improvemnt , fever resolved and wbc is down to 10k , Blood cultures negative 3- Pt will continue with cefazolin to 3 g every 8 hours along with clindamycin for another 24hrs before transition to PO Time with Patient: Less than 30
[2022-05-05] MEDS: ceFAZolin 3 GM in SODIUM CHLORIDE 0.9% 100 ML IVPB SCH ×3 (00:23→15:46)
[2022-05-05] MEDS: CLINDAMYCIN 900 MG in DEXTROSE 5% IN WATER 50 ML IVPB SCH ×4 (01:08→08:38)
[2022-05-05] MEDS: SODIUM CHLORIDE 0.9% 1,000 ML IV SCH ×2 (03:08→10:06)
[2022-05-05] MEDS: FAMOTIDINE 20 MG/2 ML VIAL IV SCH (08:39)
[2022-05-05] MEDS: HEPARIN SODIUM,PORCINE/PF 5,000 UNIT/0.5 ML SYRINGE SQ SCH (08:39)
[2022-05-05] MEDS: HYDROcodone/APAP 5-325MG 1 EACH TAB PO PRN (08:40)
[2022-05-05] MEDS ORDERED: hydrALAZINE HCL 20 MG/ML 1 ML VIAL IVP STA (10:00)
[2022-05-05 11:59] LABS: HGB 10.5 g/dL (13.0-17.0); MCH 28.8 pg (27.0-32.0); MCHC 30.9 g/dL (32.0-37.0); MCV 93.2 fL (80.0-97.0); Mean Platelet Volume 10.7 fL (9.5-12.2); NRBC Per 100 WBC 0 /100 WBCS (0.0-0.0); Platelet Count 263 X 10*3/uL (140-440); RBC 3.65 X 10*6/uL (4.40-5.60); RDW 13.7 % (11.5-14.5); WBC 12.32 X 10*3/uL (4.50-10.00)
[2022-05-05 12:11] LABS: African American GFR (CKD) 153.1 (60.0-200.0); Albumin 3.3 g/dL (3.8-4.9); Albumin/Globulin Ratio 1.22 (1.60-3.17); Anion Gap 11.3 mmol/L (10.00-18.00); BUN/Creat Ratio 9.57 Ratio (12.00-20.00); Blood Urea Nitrogen 6.7 mg/dL (9.0-27.0); Calcium 8.4 mg/dL (8.7-10.3); Carbon Dioxide 23.7 mmol/L (20.0-27.5); Globulin 2.7 g/dL (1.6-3.3); Non-African American GFR(CKD) 132.1 (60.0-200.0); Potassium 3.6 mmol/L (3.5-5.5); Total Bilirubin 0.3 mg/dL (0.30-1.20)
--- NOTE | 2022-05-05 13:04 | P.DS ---
Providers Date of admission: 04/30/22 21:14 Attending physician: Mickey Giron MD Consults: 04/30/22 23:14 Consult Physician Urgent Consulting Provider: Asia Pizarro Consult Reason/Comments: cellulitis Do you want consulting provider notified?: Yes, Notify in am Primary care physician: [facility] Course: Discharge diagnoses; Leg cellulitis secondary to blunt trauma Severe sepsis present on admission with fever and tachycardia and tachypnea Morbid obesity Hospital course; This is a pleasant 26 years old male with no significant past medical history He is morbidly obese, presents because of sepsis patient states that he was trying to get into his car in the morning when he slipped and bumped his left leg into the car, that time he was wearing pants . By the evening he noticed is getting more tired than his leg is more red and swollen and start hurting him and she was trying to get in and out of the car therefore he decided to come to emergency room. Also he thought he has a cold as his been having cough and shortness of breath but that's all gone NOW. Patient is currently lying in bed comfortable relaxed does not look in distress denies any chest pain or dyspnea or coughing, no headache dizziness weakness or numbness, no change in urine or bowel habits. However he is left leg is significantly swollen and warm including most of the circumference of the leg from above the left ankle to just below the left knee Patient denies smoking alcohol or illicit drugs, he drinks occasionally and he smokes cigar once every 6 months Patient has a fever 102.8 on admission, he was tachycardic with heart rate 123- 151, the 20 but blood pressure normal Patient has also significant leukocytosis at 22.6. BMP is unremarkable. Liver enzymes are not significantly elevated. Versus other undetected including influenza, RSV and coronavirus D-dimer was mildly elevated soft ultrasound of the next was negative for DVT in the left leg. Chest x-ray showed increased vascular opacity correlating for pneumonia. Left fibula and tibia x-rays negative for acute fracture CT of the chest showing nondiagnostic exam for PE with no acute thoracic process and hepatic steatosis however there is no evidence of focal consolidation of the chest x-ray most likely has false positive result. EKG shows sinus tachycardia at 124 05/04. Patient seen and examined. States left lower extremity swelling has improved. No acute issues overnight. Vital signs stable 05/05. Patient seen and examined. Patient being seen by ID, they recommended discharging on oral antibiotics. PHYSICAL EXAMINATION: GENERAL: The patient is alert and oriented x3, not in any acute distress. Well developed, well nourished. HEENT: Pupils are round and equally reacting to light. EOMI. No scleral icterus. No conjunctival pallor. Normocephalic, atraumatic. No pharyngeal erythema. No thyromegaly. CARDIOVASCULAR: S1 and S2 present. No murmurs, rubs, or gallops. PULMONARY: Chest is clear to auscultation, no wheezing or crackles. ABDOMEN: Soft, nontender, nondistended, normoactive bowel sounds. No palpable organomegaly. MUSCULOSKELETAL: No joint swelling or deformity. EXTREMITIES: Left lower extremity bandage seen NEUROLOGICAL: Gross neurological examination did not reveal any focal deficits. SKIN: No rashes. Patient Condition at Discharge: Stable Plan - Discharge Summary Discharge Rx Participant: Yes New Discharge Prescriptions: New Cephalexin [Keflex] 500 mg PO Q6HR #56 cap Discharge Medication List Cephalexin [Keflex] 500 mg PO Q6HR #56 cap 05/05/22 [Rx] Follow up Appointment(s)/Referral(s): Asia Pizarro MD [STAFF PHYSICIAN] - 1 Week Aakash Marin MD [Primary Care Provider] - 1-2 days Patient Instructions/Handouts: Moderate Sedation in Children (ED)
[2022-05-05 15:13] VITALS: BP 161/89; PULSE 107; TEMP 98.6
--- NOTE | 2022-05-05 22:52 | P.PN ---
Subjective Progress Note Date: 05/05/22 Principal diagnosis: Sepsis and bilateral lower extremity cellulitis Patient is a 26-year-old male presenting to the hospital with increasing pain swelling redness of left lower extremity along with a fever has been diagnosed with extensive left lower extremity cellulitis with sepsis On today's evaluation that is 05/05/2022, the patient continues to be afebrile , the patient denies having any chest pain or shortness breath occasional cough , the patient denies having abdominal pain and no diarrhea, the patient pain to the left leg redness has significantly decreased in intensity Objective - Vital Signs Vital signs: Vital Signs Temp 99.0 F 05/05/22 07:28 Pulse 101 H 05/05/22 08:35 Resp 16 05/05/22 07:28 BP 182/91 05/05/22 08:35 Pulse Ox 96 05/05/22 07:28 FiO2 Intake & Output 05/04/22 05/05/22 05/05/22 18:59 06:59 18:59 Intake Total 2100 Balance 2100 Intake: Intake, IV Titration 2100 Amount Clindamycin 900 mg In 100 Dextrose 5% in Water 50 ml @ 50 mls/hr IVPB Q8HR [facility] Rx#:[id number] Sodium Chloride 0.9% 1, 1800 000 ml @ 150 mls/hr IV . Q6H40M [facility] Rx#:[id number] ceFAZolin 3 gm In Sodium 200 Chloride 0.9% 100 ml @ 200 mls/hr IVPB Q8HR [facility] Rx#:[id number] Other: Voiding Method Toilet Toilet Toilet Urinal Urinal Urinal # Voids 4 4 # Bowel Movements 1 - Exam GENERAL DESCRIPTION: Young male lying in bed in no distress RESPIRATORY SYSTEM: Unlabored breathing , decreased breath sounds at bases HEART: S1 S2 regular rate and rhythm , ABDOMEN: Soft , no tenderness EXTREMITIES: Diffuse swelling to the left lower extremity , redness and warmth has decreased - Labs CBC & Chem 7: 05/05/22 06:40 05/05/22 06:40 Labs: Microbiology - Last 24 Hours (Table) 05/01/22 08:07 Blood Culture - Preliminary Blood No Growth after 96 hours 05/02/22 05:51 Blood Culture - Preliminary Blood No Growth after 72 hours 04/30/22 20:00 Blood Culture - Preliminary Blood No Growth after 96 hours Assessment and Plan (1) Left leg cellulitis Status: Acute Code(s): L03.116 - CELLULITIS OF LEFT LOWER LIMB SNOMED Code(s): 022822312 (2) Sepsis Status: Acute Code(s): A41.9 - SEPSIS, UNSPECIFIED ORGANISM SNOMED Code(s): 37814787 Plan: 1patient presented to hospital with sepsis in this patient who did have fever tachycardia elevated white count source is extensive left lower extremity cellulitis with rapid progression likely related to streptococcal disease clinically doubt MRSA infection. 2patient seems to have shown some clinical improvemnt , fever resolved and wbc is down to 10k , Blood cultures negative 3- patient seemed to have shown clinical improvement with cefazolin he will finish therapy with oral Keflex prescription sent to the pharmacy and close outpatient follow-up Time with Patient: Less than 30
== END 2022-05-05 18:14 | disposition home or self-care (01) | DRG 872 ==
LOC: EC 15:21 → 4SSUR 21:14
PROVIDERS: ADMIT Internal Medicine; ATTEND Internal Medicine
DX: A40.9 Streptococcal sepsis, unspecified (principal); L03.116 Cellulitis of left lower limb; Z68.45 Body mass index [BMI] 70 or greater, adult; R06.82 Tachypnea, not elsewhere classified; F17.290 Nicotine dependence, other tobacco product, uncomplicated; R65.20 Severe sepsis without septic shock; W22.09XA Striking against other stationary object, initial encounter; E66.01 Morbid (severe) obesity due to excess calories; R79.89 Other specified abnormal findings of blood chemistry; R79.1 Abnormal coagulation profile; Z20.822 Contact with and (suspected) exposure to COVID-19; K76.0 Fatty (change of) liver, not elsewhere classified; Z28.310 Unvaccinated for COVID-19
CPT/HCPCS: 36415; 71046; 71275; 80048; 80053; 83605; 84145; 85025; 85027; 85379; 86140; 87040; 87324; 87636; 93005; 96361; 96365; 96366; 96367; 96372; 96375; 99285

== ENCOUNTER 2022-05-10 11:22 | Inpatient (IN) | payer BC ==
[2022-05-10] MEDS ORDERED: diphenhydrAMINE 50 MG/ML 1 ML VIAL IVP STA (11:40)
[2022-05-10] MEDS ORDERED: methylPREDNISolone SOD SUCCI 125 MG/2 ML VIAL IV STA (11:40)
--- NOTE | 2022-05-10 11:45 | ED ---
General Adult HPI - General Chief complaint: Skin/Abscess/Foreign Body Stated complaint: Revisit - Cellulitis Time Seen by Provider: 05/10/22 11:25 Source: patient, RN notes reviewed, old records reviewed Mode of arrival: ambulatory Limitations: no limitations - History of Present Illness Initial comments: This is a 26-year-old male who was recently admitted to the hospital for left leg cellulitis. Patient was discharged on Thursday on Keflex. Patient states since that time he has developed a rash on his back and his upper arms as well as increased redness on his left leg up into the posterior thigh region. Patient states the blistering on the anterior and posterior aspect of the thigh is unchanged but the rash coming up his legs is new. Patient states it's a little bit itchy but not bad. Patient notices it starts off with small blotchy red areas and eventually becomes confluent. Patient denies any fever chills. Patient states it does not hurt. Patient denies any other problems at this time - Related Data Previous Rx's Medication Instructions Recorded Cephalexin [Keflex] 500 mg PO Q6HR #56 cap 05/05/22 Allergies Allergy/AdvReac Type Severity Reaction Status Date / Time No Known Allergies Allergy Verified 04/30/22 17:21 Review of Systems ROS Statement: Those systems with pertinent positive or pertinent negative responses have been documented in the HPI. ROS Other: All systems not noted in ROS Statement are negative. Past Medical History Past Medical History: No Reported History Additional Past Medical History / Comment(s): celllitis History of Any Multi-Drug Resistant Organisms: None Reported Past Surgical History: No Surgical Hx Reported Past Psychological History: No Psychological Hx Reported Smoking Status: Light tobacco smoker Past Alcohol Use History: Occasional Past Drug Use History: None Reported General Exam - General Exam Comments Initial Comments: GENERAL: Patient is well-developed and well-nourished. Patient is nontoxic and well- hydrated and is in no acute distress. ENT: Neck is soft and supple. No significant lymphadenopathy is noted. Oropharynx is clear. Moist mucous membranes. EYES: The sclera were anicteric and conjunctiva were pink and moist. Extraocular movements were intact and pupils were equal round and reactive to light. Eyelids were unremarkable. SKIN: Skin is clear with no lesions or rashes and otherwise unremarkable. NEUROLOGIC: Patient is alert and oriented x3. Cranial nerves II through XII are grossly intact. Motor and sensory are also intact. Normal speech, volume and content. MUSCULOSKELETAL: Left lower leg has quite a few blisters on the anterior surface as well as the posterior surface of the leg they're not circumferential. Patient states they are slightly improved from when he was in the hospital. there is redness increasing anterior aspect of his leg in the posterior thigh. The new redness on the posterior thigh and anterior leg is not warm and blanches nicely LYMPHATICS: No significant lymphadenopathy is noted PSYCHIATRIC: Normal psychiatric evaluation. 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 Patient's EKG shows no ST segment elevation or depression. Was pt. sent in by a medical professional or institution (, PA, STATEMENT CLERKS SUPERVISOR, urgent care, hospital, or senior care...) When possible be specific @ -No Did you speak to anyone other than the patient for history (EMS, parent, family, police, friend...)? What history was obtained from this source @ -No Did you review nursing and triage notes (agree or disagree)? Why? @ -I reviewed and agree with nursing and triage notes Were old charts reviewed (outside hosp., previous admission, EMS record, old EKG, old radiological studies, urgent care reports/EKG's, senior care records)? Report findings @ -I reviewed prior inpatient charts as well as prior laboratory studies Differential Diagnosis (chest pain, altered mental status, abdominal pain women, abdominal pain men, vaginal bleeding, weakness, fever, dyspnea, syncope, headache, dizziness, GI bleed, back pain, seizure, CVA, palpatations, mental hea lth, musculoskeletal)? @ -Differential Musculoskeletal Muscular strain, contusion, ligament sprain, fracture, arthritis, septic arthritis, bursitis, cellulitis, muscle spasm, nerve compression, DVT, arterial occlusion, herpes zoster, electrolyte abnormality, tumor.... This is not meant to be in all inclusive list EKG interpreted by me (3pts min.). @ -As above X-rays interpreted by me (1pt min.). @ -X-ray of the tib-fib was interpreted by myself showed no signs of osteomyelitis. CT interpreted by me (1pt min.). @ -None done U/S interpreted by me (1pt. min.). @ -None done What testing was considered but not performed or refused? (CT, X-rays, U/S, labs)? Why? @ -None What meds were considered but not given or refused? Why? @ -None Did you discuss the management of the patient with other professionals (professionals i.e. , PA, STATEMENT CLERKS SUPERVISOR, lab, RT, psych nurse, aids social worker, portuguese tutor, teacher, fare enforcement officer, family preservation caseworker)? Give summary @ -I spoke with she couldn't he went in and evaluated the patient and agreed to admit the patient admitted the patient wrote admitting orders Was smoking cessation discussed for >3mins.? @ -No Was critical care preformed (if so, how long)? @ -No Were there social determinants of health that impacted care today? How? (Homelessness, low income, unemployed, alcoholism, drug addiction, transportation, low edu. Level, literacy, decrease access to med. care, skilled nursing, rehab)? @ -No Was there de-escalation of care discussed even if they declined (Discuss DNR or withdrawal of care, Hospice)? DNR status @ -No What co-morbidities impacted this encounter? (DM, HTN, Smoking, COPD, CAD, Cancer, CVA, ARF, Chemo, Hep., AIDS, mental health diagnosis, sleep apnea, morbid obesity)? @ -None Was patient admitted / discharged? Hospital course, mention meds given and route, prescriptions, significant lab abnormalities, going to OR and other pertinent info. @ -I initially saw the patient and consider additional redness on the leg to be either ALLERGIC reaction or progression of the cellulitis. I gave the patient steroids and Benadryl did not change the redness at all. So I had to assume that this cellulitis that was worsening so spoke with Dr. khalil he agreed to admit the patient admitted the patient I consult Sayed I started antibiotics. Undiagnosed new problem with uncertain prognosis? @ -No Drug Therapy requiring intensive monitoring for toxicity (Heparin, Nitro, Insulin, Cardizem)? @ -No Were any procedures done? @ -No Diagnosis/symptom? @ -Left leg cellulitis Acute, or Chronic, or Acute on Chronic? @ -Acute Uncomplicated (without systemic symptoms) or Complicated (systemic symptoms)? @ -Complicated Side effects of treatment? @ -No Exacerbation, Progression, or Severe Exacerbation? @ -No Poses a threat to life or bodily function? How? (Chest pain, USA, AR, pneumonia, PE, COPD, DKA, ARF, appy, cholecystitis, CVA, Diverticulitis, Homicidal, Suicidal, threat to staff... and all critical care pts) @ -Yes is currently the sepsis or significant bleed to end organ dysfunction - Lab Data Result diagrams: 05/10/22 11:54 05/10/22 11:54 Lab Results 05/10/22 05/10/22 05/10/22 Range/Units 11:54 11:54 11:54 WBC 12.5 H (3.8-10.6) k/uL RBC 4.06 L (4.30-5.90) m/uL Hgb 12.1 L (13.0-17.5) gm/dL Hct 36.8 L (39.0-53.0) % MCV 90.7 (80.0-100.0) fL MCH 29.8 (25.0-35.0) pg MCHC 32.9 (31.0-37.0) g/dL RDW 13.0 (11.5-15.5) % Plt Count 489 H D (150-450) k/uL MPV 7.7 Neutrophils % 80 % Lymphocytes % 11 % Monocytes % 4 % Eosinophils % 3 % Basophils % 0 % Neutrophils # 10.0 H (1.3-7.7) k/uL Lymphocytes # 1.4 (1.0-4.8) k/uL Monocytes # 0.5 (0-1.0) k/uL Eosinophils # 0.4 (0-0.7) k/uL Basophils # 0.0 (0-0.2) k/uL PT 10.9 (9.0-12.0) sec INR 1.0 (<1.2) APTT 26.8 (22.0-30.0) sec Sodium 139 (137-145) mmol/L Potassium 5.3 H (3.5-5.1) mmol/L Chloride 102 (98-107) mmol/L Carbon Dioxide 25 (22-30) mmol/L Anion Gap 12 mmol/L BUN 12 (9-20) mg/dL Creatinine 0.69 (0.66-1.25) mg/dL Est GFR (CKD-EPI)AfAm >90 (>60 ml/min/1.73 sqM) Est GFR (CKD-EPI)NonAf >90 (>60 ml/min/1.73 sqM) Glucose 96 (74-99) mg/dL Plasma Lactic Acid Nick (0.7-2.0) mmol/L Calcium 8.9 (8.4-10.2) mg/dL Total Bilirubin 1.0 (0.2-1.3) mg/dL AST 49 (17-59) U/L ALT 67 H (4-49) U/L Alkaline Phosphatase 56 (38-126) U/L Total Protein 8.2 (6.3-8.2) g/dL Albumin 3.8 (3.5-5.0) g/dL 05/10/22 Range/Units 11:54 WBC (3.8-10.6) k/uL RBC (4.30-5.90) m/uL Hgb (13.0-17.5) gm/dL Hct (39.0-53.0) % MCV (80.0-100.0) fL MCH (25.0-35.0) pg MCHC (31.0-37.0) g/dL RDW (11.5-15.5) % Plt Count (150-450) k/uL MPV Neutrophils % % Lymphocytes % % Monocytes % % Eosinophils % % Basophils % % Neutrophils # (1.3-7.7) k/uL Lymphocytes # (1.0-4.8) k/uL Monocytes # (0-1.0) k/uL Eosinophils # (0-0.7) k/uL Basophils # (0-0.2) k/uL PT (9.0-12.0) sec INR (<1.2) APTT (22.0-30.0) sec Sodium (137-145) mmol/L Potassium (3.5-5.1) mmol/L Chloride (98-107) mmol/L Carbon Dioxide (22-30) mmol/L Anion Gap mmol/L BUN (9-20) mg/dL Creatinine (0.66-1.25) mg/dL Est GFR (CKD-EPI)AfAm (>60 ml/min/1.73 sqM) Est GFR (CKD-EPI)NonAf (>60 ml/min/1.73 sqM) Glucose (74-99) mg/dL Plasma Lactic Acid Nick 1.0 (0.7-2.0) mmol/L Calcium (8.4-10.2) mg/dL Total Bilirubin (0.2-1.3) mg/dL AST (17-59) U/L ALT (4-49) U/L Alkaline Phosphatase (38-126) U/L Total Protein (6.3-8.2) g/dL Albumin (3.5-5.0) g/dL Disposition Clinical Impression: Left leg cellulitis Disposition: ADMITTED IP TO THIS [facility] Referrals: Aakash Marin MD [Primary Care Provider] - 1-2 days Time of Disposition: 13:02
[2022-05-10 12:11] LABS: Basophils % (A) 0 %; Eosinophils # (A) 0.4 k/uL (0-0.7); Eosinophils % (A) 3 %; HCT 36.8 % (39.0-53.0); HGB 12.1 gm/dL (13.0-17.5); Lymphocytes # (A) 1.4 k/uL (1.0-4.8); Lymphocytes % (A) 11 %; MCH 29.8 pg (25.0-35.0); MCHC 32.9 g/dL (31.0-37.0); MCV 90.7 fL (80.0-100.0); Mean Platelet Volume 7.7; Monocytes # (A) 0.5 k/uL (0-1.0); Monocytes % (A) 4 %; Neutrophils % (A) 80 %; RBC 4.06 m/uL (4.30-5.90); WBC 12.5 k/uL (3.8-10.6)
[2022-05-10 12:21] LABS: Platelet Count 489 k/uL (150-450)
[2022-05-10 12:31] LABS: ALT 67 U/L (4-49); African American GFR (CKD) >90 (>60 ml/min/1.73 sqM); Albumin 3.8 g/dL (3.5-5.0); Anion Gap 12 mmol/L; Blood Urea Nitrogen 12 mg/dL (9-20); Calcium 8.9 mg/dL (8.4-10.2); Carbon Dioxide 25 mmol/L (22-30); Chloride 102 mmol/L (98-107); Glucose 96 mg/dL (74-99); Non-African American GFR(CKD) >90 (>60 ml/min/1.73 sqM); Sodium 139 mmol/L (137-145); Total Protein 8.2 g/dL (6.3-8.2)
[2022-05-10 12:36] LABS: Partial Thromboplastin Time 26.8 sec (22.0-30.0); Prothrombin Time 10.9 sec (9.0-12.0)
[2022-05-10 12:39] LABS: Potassium 5.3 mmol/L (3.5-5.1)
[2022-05-10 12:40] LABS: AST 49 U/L (17-59); Alkaline Phosphatase 56 U/L (38-126)
--- NOTE | 2022-05-10 12:46 | XR ---
EXAMINATION TYPE: XR tibia fibula LT DATE OF EXAM: 05/10/2022 CLINICAL HISTORY: Pain and swelling and redness. Cellulitis. TECHNIQUE: Two views of the left leg are obtained. COMPARISON: Left leg x-ray April 30, 2022 FINDINGS: Moderate to severe diffuse soft tissue swelling and subcutaneous edema is redemonstrated. N o acute displaced fracture of the left tibia or fibula. No suspicious bony destruction. The knee and ankle joints remain within normal limits IMPRESSION: As above. No convincing radiographic evidence for acute osteomyelitis. No significant meryl nge from recent x-ray.
[2022-05-10] MEDS ORDERED: VANCOMYCIN IV PER PHARMACY 1 EACH MISC MISCELLANE PRN (13:08)
[2022-05-10] MEDS ORDERED: VANCOMYCIN 2,500 MG in SODIUM CHLORIDE 0.9% 500 ML 500 ML IVPB STA (13:09)
--- NOTE | 2022-05-10 13:30 | P.HPIM ---
History of Present Illness This is a pleasant 26 years old male with no significant past medical history. He is morbidly obese, patient was admitted about 10 days ago to this facility, I saw him on the day of admission left leg cellulitis with fever and leukocytosis. Patient has been evaluated and treated to continently and then discharge on Keflex 14 days on 05/05. Patient presents today because of worsening micropapillary rash in both upper extremities and the back. His left leg which was entirely red and swollen when I saw him last time it looks improved however there is bilateral big blisters, patient states that he developed this of blisters per to discharge last time and they look the same. However on the left thigh there is confluent micropapillary rash extending to the back of his thigh, which is not seen similarly on the right leg/thigh. Patient denies any other specific symptoms, no chest pain or dyspnea, no headache weakness or numbness. No abdominal pain vomiting or diarrhea. He is tachycardic around 115-101, slightly tachypneic on 20. Patient is not hypoxic actually he is saturating 9900% on room air Labs showing leukocytosis with 12.5 which is similar to last time he was discharged 12.3. Hemoglobin 12.1 compared to 10-12during last admission INR is 1.0, BMP and liver enzymes were unremarkable for significant illness exc ept for potassium 5.3 with hemolyzed sample EKG showing normal sinus tachycardia at [address]-T changes, his EKG pattern similar to last time X-ray of the left tibia and fibula showing no evidence of acute osteomyelitis no significant change from recent x-ray An emergency room patient received Benadryl and IV Solu Medrol Review of Systems Review of systems CONSTITUTIONAL: No fever, no malaise, no fatigue. HEENT: No recent visual problems or hearing problems. Denied any sore throat. CARDIOVASCULAR: No orthopnea, PND, no palpitations, no syncope. PULMONARY: No shortness of breath, no cough, no hemoptysis. GASTROINTESTINAL: No diarrhea, no nausea, no vomiting, no abdominal pain. Normoactive bowel sounds. NEUROLOGICAL: No headaches, no weakness, no numbness. HEMATOLOGICAL: Denies any bleeding or petechiae. GENITOURINARY: Denies any burning micturition, frequency, or urgency. MUSCULOSKELETAL/RHEUMATOLOGICAL: Denies any joint pain, swelling, or any muscle pain. ENDOCRINE: Denies any polyuria or polydipsia. Past Medical History Past Medical History: No Reported History Additional Past Medical History / Comment(s): celllitis History of Any Multi-Drug Resistant Organisms: None Reported Past Surgical History: No Surgical Hx Reported Past Psychological History: No Psychological Hx Reported Smoking Status: Light tobacco smoker Past Alcohol Use History: Occasional Past Drug Use History: None Reported Medications and Allergies Home Medications Medication Instructions Recorded Confirmed Type Cephalexin [Keflex] 500 mg PO Q6HR #56 cap 05/05/22 05/10/22 Rx Allergies Allergy/AdvReac Type Severity Reaction Status Date / Time No Known Allergies Allergy Verified 05/10/22 13:13 Physical Exam Vitals: Vital Signs Temp Pulse Pulse Resp BP BP Pulse Ox 05/10/22 12:18 101 H 20 159/93 99 05/10/22 11:24 98.1 F 115 H 20 163/86 100 Intake and Output 05/09/22 05/10/22 05/10/22 22:59 06:59 14:59 Other: Weight 240.404 kg -GENERAL: The patient is alert and oriented x3, not in any acute distress. Morbidly obese HEENT: Pupils are round and equally reacting to light. EOMI. No scleral icterus. No conjunctival pallor. Normocephalic, atraumatic. No pharyngeal erythema. No thyromegaly. CARDIOVASCULAR: S1 and S2 present. No murmurs, rubs, or gallops. PULMONARY: Chest is clear to auscultation, no wheezing or crackles. ABDOMEN: Soft, nontender, nondistended, normoactive bowel sounds. No palpable organomegaly. MUSCULOSKELETAL: No joint swelling or deformity. -EXTREMITIES: No cyanosis, clubbing, or pedal edema. Left leg blister disease and a lesser extent right leg, improving cellulitis of the left leg, worsening confluent cellulitis of the left thigh just above the knee and posteriorly and the back of the thigh area NEUROLOGICAL: Gross neurological examination did not reveal any focal deficits. -SKIN: Bilateral maculopapular rash on both upper extremities and upper back e. Results CBC & Chem 7: 05/10/22 11:54 05/10/22 11:54 Labs: Abnormal Lab Results - Last 24 Hours (Table) 05/10/22 05/10/22 Range/Units 11:54 11:54 WBC 12.5 H (3.8-10.6) k/uL RBC 4.06 L (4.30-5.90) m/uL Hgb 12.1 L (13.0-17.5) gm/dL Hct 36.8 L (39.0-53.0) % Plt Count 489 H D (150-450) k/uL Neutrophils # 10.0 H (1.3-7.7) k/uL Potassium 5.3 H (3.5-5.1) mmol/L ALT 67 H (4-49) U/L Assessment and Plan Assessment: Left leg cellulitis with blistering Bilateral maculopapular rash involving both upper extremities and the back, Suspect rash possible sepsis with tachypnea, tachycardia and leukocytosis morbid obesity hypertension Plan: Agree with holding Keflex Continue with IV vancomycin, the close monitoring of kidney function Start the patient on normal saline 100 ml per hour Consults infectious disease team Start metoprolol and when necessary hydralazine I agree with Benadryl and ampicillin withdrawal and will add Pepcid Check ultrasound of the leg to rule out DVT Going to monitor the patient rash, we expect to improve, otherwise we will consider rheumatology consult Labs and medication were reviewed.. Continue same treatment. Continue with symptomatic treatment. Resume home medication. Monitor labs and vitals. DVT and GI prophylaxis. Further recommendations as per clinical course of the patient DVT prophylaxis: Subcutaneous heparin GI Prophylaxis: Pepcid PT/OT: Pending Prognosis is guarded
[2022-05-10] MEDS: SODIUM CHLORIDE 0.9% 1,000 ML IV SCH ×2 (13:53→23:13)
--- NOTE | 2022-05-10 13:56 | US ---
EXAMINATION TYPE: US venous doppler duplex LE BI DATE OF EXAM: 05/10/2022 1:47 PM COMPARISON: Prior left lower extremity study April 30, 2022 CLINICAL HISTORY: leg swelling. Leg swelling SIDE PERFORMED: Bilateral TECHNIQUE: The lower extremity deep venous system is examined utilizing real time linear array sonog bryant with graded compression, doppler sonography and color-flow sonography. VESSELS IMAGED: Common Femoral Vein Deep Femoral Vein Greater Saphenous Vein * Femoral Vein Popliteal Vein Small Saphenous Vein * Proximal Calf Veins (* superficial vessels) Very limited exam due to pt morbid obesity (500+ lbs) Right Leg: Unable to visualize right groin vessels, unable to perform compressions at femoral level due to pt obesity/ Limited visualization shows no evidence of DVT at this time Left Leg: Unable to visualize left groin vessels, unable to perform compressions at femoral or popli teal level due to pt obesity and severe edema/ Limited visualization shows no evidence of DVT at thi s time Grayscale, color doppler, spectral doppler imaging performed of the deep veins of the bilateral lower extremities. Visualized portions show satisfactory color flow IMPRESSION: Suboptimal study without convincing evidence for acute DVT. Bilateral entire veins canno t be assessed.
[2022-05-10] MEDS: METOPROLOL SUCCINATE (ER) 25 MG TAB.ER.24H PO SCH ×2 (14:04→21:43)
[2022-05-10] MEDS: FAMOTIDINE 20 MG/2 ML VIAL IV SCH ×2 (14:04→23:13)
[2022-05-10] MEDS: HEPARIN SODIUM,PORCINE/PF 5,000 UNIT/0.5 ML SYRINGE SQ SCH ×2 (14:05→23:13)
[2022-05-10] MEDS ORDERED: VANCOMYCIN 2,500 MG in SODIUM CHLORIDE 0.9% 500 ML 500 ML IVPB SCH (22:00)
[2022-05-10] MEDS: CLINDAMYCIN 900 MG in DEXTROSE 5% IN WATER 50 ML IVPB SCH ×2 (23:13)
--- NOTE | 2022-05-10 23:25 | P.CONS ---
History of Present Illness - Reason for Consult Consult date: 05/10/22 Left leg cellulitis Requesting physician: Josue Moralez - Chief Complaint Rash x one day - History of Present Illness Patient is a 26-year-old male who was recently admitted to the hospital with extensive left lower extremity cellulitis patient was treated with IV cefazolin and clindamycin and subsequently patient was discharged home on oral Keflex with the patient has been taking for the last few days patient now presenting back to the hospital this morning concerning for rash on his back and upper arms apparently has been getting worse for the last day and 2 with associated itching patient denies having any blister formation and denies having any tongue swelling or difficulty breathing the patient had left leg redness seem to have improved however the patient did have a blister both on the anterior and the posterior aspect with some discomfort associated with it 3-4 out of 10 and no radiation with the symptom the patient was evaluated on present ation to the hospital the patient was afebrile patient did have mild tachycardia white count is 12.5 with a left shift creatinine was normal, ALT was mildly elevated, patient was started on vancomycin infectious was consulted for further management of antibiotic therapy Review of Systems Positive point has been mentioned in the HPI rest of the systems are negative Past Medical History Past Medical History: No Reported History Additional Past Medical History / Comment(s): celllitis History of Any Multi-Drug Resistant Organisms: None Reported Past Surgical History: No Surgical Hx Reported Past Psychological History: No Psychological Hx Reported Smoking Status: Light tobacco smoker Past Alcohol Use History: Occasional Past Drug Use History: None Reported Medications and Allergies Home Medications Medication Instructions Recorded Confirmed Type Cephalexin [Keflex] 500 mg PO Q6HR #56 cap 05/05/22 05/10/22 Rx Allergies Allergy/AdvReac Type Severity Reaction Status Date / Time cephalexin [From Keflex] Allergy Rash/Hives Verified 05/10/22 16:42 Physical Exam Vitals: Vital Signs Temp Pulse Pulse Resp BP BP Pulse Ox 05/10/22 13:51 98.2 F 93 20 161/79 99 05/10/22 12:18 101 H 20 159/93 99 05/10/22 11:24 98.1 F 115 H 20 163/86 100 Intake and Output 05/10/22 05/10/22 05/10/22 06:59 14:59 22:59 Other: Weight 240.404 kg GENERAL DESCRIPTION: Young male lying in bed, no distress. No tachypnea or accessory muscle of respiration use. HEENT: Shows Pallor , no scleral icterus. Oral mucous membrane is dry. No pharyngeal erythema or thrush NECK: Trachea central, no thyromegaly. LUNGS: Unlabored breathing. Clear to auscultation anteriorly. No wheeze or crackle. HEART: S1, S2, regular rate and rhythm. No loud murmur ABDOMEN: Soft, no tenderness , guarding or rigidity, no organomegaly EXTREMITIES: Left lower extremity with swelling redness did have a wound on the anterior as well as posterior side with no slough tissue or foul-smelling drainage SKIN: Generalized micropapular rash NEUROLOGICAL: The patient is awake, alert, oriented x3, mood and affect normal. Results CBC & Chem 7: 05/12/22 10:37 05/14/22 07:11 Labs: Abnormal Lab Results - Last 24 Hours (Table) 05/10/22 05/10/22 Range/Units 11:54 11:54 WBC 12.5 H (3.8-10.6) k/uL RBC 4.06 L (4.30-5.90) m/uL Hgb 12.1 L (13.0-17.5) gm/dL Hct 36.8 L (39.0-53.0) % Plt Count 489 H D (150-450) k/uL Neutrophils # 10.0 H (1.3-7.7) k/uL Potassium 5.3 H (3.5-5.1) mmol/L ALT 67 H (4-49) U/L Assessment and Plan (1) Drug rash Current Visit: Yes Status: Acute Code(s): L27.0 - GEN SKIN ERUPTION DUE TO DRUGS AND MEDS TAKEN INTERNALLY SNOMED Code(s): 33730075 (2) Left leg cellulitis Current Visit: Yes Status: Acute Code(s): L03.116 - CELLULITIS OF LEFT LOWER LIMB SNOMED Code(s): 232842219 Plan: 1patient with recent admission to the hospital and was treated for extensive cellulitis of left lower extremity and this patient clinic responded to the cefazolin unfortunately not developing a rash more likely to Keflex which has been discontinued, clinically doubt MRSA infection. 2discontinue vancomycin 3-we will start the patient on clindamycin 900 mg IV every every 8 hours 4-patient has been instructed to increase his probiotic and yogurt intake 5-local care with ABD to the blister area followed by Gopi wrap change daily discussed with the RN We will follow on clinical condition and cultures to further adjust medication if needed Thank you for this consultation we will follow the patient along with you Time with Patient: Greater than 30
[2022-05-11] MEDS: METOPROLOL SUCCINATE (ER) 25 MG TAB.ER.24H PO SCH ×2 (09:11→20:53)
[2022-05-11] MEDS: CLINDAMYCIN 900 MG in DEXTROSE 5% IN WATER 50 ML IVPB SCH ×6 (09:11→23:33)
[2022-05-11] MEDS: FAMOTIDINE 20 MG/2 ML VIAL IV SCH ×2 (09:11→20:53)
[2022-05-11] MEDS: HEPARIN SODIUM,PORCINE/PF 5,000 UNIT/0.5 ML SYRINGE SQ SCH ×3 (09:11→23:33)
[2022-05-11] MEDS: SODIUM CHLORIDE 0.9% 1,000 ML IV SCH ×2 (09:12→20:53)
[2022-05-11 11:16] LABS: Basophils % (A) 0 %; Eosinophils # (A) 0.1 k/uL (0-0.7); Eosinophils % (A) 1 %; HCT 35.3 % (39.0-53.0); HGB 11.7 gm/dL (13.0-17.5); Lymphocytes % (A) 12 %; MCH 30.1 pg (25.0-35.0); Mean Platelet Volume 8.2; Monocytes # (A) 0.6 k/uL (0-1.0); Monocytes % (A) 4 %; Neutrophils # (A) 12.9 k/uL (1.3-7.7); Neutrophils % (A) 81 %; Platelet Count 487 k/uL (150-450); RBC 3.88 m/uL (4.30-5.90); RDW 13.3 % (11.5-15.5)
[2022-05-11 11:39] LABS: ALT 53 U/L (4-49); AST 30 U/L (17-59); African American GFR (CKD) >90 (>60 ml/min/1.73 sqM); Albumin 3.7 g/dL (3.5-5.0); Albumin/Globulin Ratio 0.9; Alkaline Phosphatase 58 U/L (38-126); Anion Gap 11 mmol/L; Bilirubin,Unconjugated 0.1 mg/dL (0.0-1.1); Blood Urea Nitrogen 11 mg/dL (9-20); Calcium 9.2 mg/dL (8.4-10.2); Carbon Dioxide 24 mmol/L (22-30); Chloride 107 mmol/L (98-107); Globulin 4.1 g/dL; Glucose 92 mg/dL (74-99); Non-African American GFR(CKD) >90 (>60 ml/min/1.73 sqM); Potassium 4.7 mmol/L (3.5-5.1); Sodium 142 mmol/L (137-145); Total Bilirubin 0.5 mg/dL (0.2-1.3); Total Protein 7.8 g/dL (6.3-8.2)
--- NOTE | 2022-05-11 16:04 | P.PN ---
Subjective Progress Note Date: 05/11/22 Principal diagnosis: Left leg cellulitis and drug rash Patient is a 26 year old male with a recent admission to the hospital with extensive left lower extremity cellulitis stabilized discharged on oral Keflex presented back to the hospital with extensive drug rash related to Keflex which has been discontinued, still have component of left leg cellulitis not completely resolved. On today's evaluation and that is 05/11/2022 patient denies having any fever or any chills patient is breathing comfortably on room air he still have a rash slightly more pronounced today, however denies any tongue swelling and difficulty breathing or any worsening pain to the left lower extremity Objective - Vital Signs Vital signs: Vital Signs Temp 97.6 F 05/11/22 11:37 Pulse 97 05/11/22 11:37 Resp 20 05/11/22 11:37 BP 159/80 05/11/22 11:37 Pulse Ox 97 05/11/22 11:37 FiO2 Intake & Output 05/10/22 05/11/22 05/11/22 18:59 06:59 18:59 Intake Total 1600 Balance 1600 Weight 240.404 kg Intake: Intake, IV Titration 1100 Amount Clindamycin 900 mg In 100 Dextrose 5% in Water 50 ml @ 50 mls/hr IVPB Q8HR ROBIN Rx#:[id number] Sodium Chloride 0.9% 1, 1000 000 ml @ 100 mls/hr IV . Q10H ROBIN Rx#:[id number] Oral 500 Other: Voiding Method Toilet Toilet # Voids 2 - Exam GENERAL DESCRIPTION: A middle-age male up in the chair in no distress RESPIRATORY SYSTEM: Unlabored breathing , decreased breath sounds at bases HEART: S1 S2 regular rate and rhythm , ABDOMEN: Soft , no tenderness EXTREMITIES: Left leg is currently dressed no drainage on the dressing SKIN: Extensive macular papular rash especially left thigh and upper extremity - Labs CBC & Chem 7: 05/11/22 09:55 05/11/22 09:55 Labs: Abnormal Lab Results - Last 24 Hours (Table) 05/11/22 05/11/22 Range/Units 09:55 09:55 WBC 16.0 H (3.8-10.6) k/uL RBC 3.88 L (4.30-5.90) m/uL Hgb 11.7 L (13.0-17.5) gm/dL Hct 35.3 L (39.0-53.0) % Plt Count 487 H (150-450) k/uL Neutrophils # 12.9 H (1.3-7.7) k/uL Creatinine 0.62 L (0.66-1.25) mg/dL ALT 53 H (4-49) U/L Microbiology - Last 24 Hours (Table) 05/10/22 11:54 Blood Culture - Preliminary Blood No Growth after 24 hours 05/10/22 11:54 Blood Culture - Preliminary Blood No Growth after 24 hours Assessment and Plan (1) Drug rash Current Visit: Yes Status: Acute Code(s): L27.0 - GEN SKIN ERUPTION DUE TO DRUGS AND MEDS TAKEN INTERNALLY SNOMED Code(s): 34696541 (2) Left leg cellulitis Current Visit: Yes Status: Acute Code(s): L03.116 - CELLULITIS OF LEFT LOWER LIMB SNOMED Code(s): 299031114 Plan: 1patient with recent admission to the hospital and was treated for extensive cellulitis of left lower extremity and this patient clinic responded to the cefazolin unfortunately not developing a rash more likely to Keflex which has been discontinued, clinically doubt MRSA infection. 2patient to continue with clindamycin 900 mg IV every every 8 hours 3--local care with ABD to the blister area followed by Gopi wrap change daily discussed with the RN 4-in view of the extensive rash will give him 4 doses of Solu-Medrol and see clinical response Time with Patient: Less than 30
[2022-05-11] MEDS: methylPREDNISolone SOD SUCCI 125 MG/2 ML VIAL IV SCH ×2 (17:07→23:32)
--- NOTE | 2022-05-11 21:29 | P.PN ---
Subjective This is a pleasant 26 years old male with no significant past medical history. He is morbidly obese, patient was admitted about 10 days ago to this facility, I saw him on the day of admission left leg cellulitis with fever and leukocytosis. Patient has been evaluated and treated to continently and then discharge on Keflex 14 days on 05/05. Patient presents today because of worsening micropapillary rash in both upper extremities and the back. His left leg which was entirely red and swollen when I saw him last time it looks improved however there is bilateral big blisters, patient states that he developed this of blisters per to discharge last time and they look the same. However on the left thigh there is confluent micropapillary rash extending to the back of his thigh, which is not seen similarly on the right leg/thigh. Patient denies any other specific symptoms, no chest pain or dyspnea, no headache weakness or numbness. No abdominal pain vomiting or diarrhea. He is tachycardic around 115-101, slightly tachypneic on 20. Patient is not hypoxic actually he is saturating 9900% on room air Labs showing leukocytosis with 12.5 which is similar to last time he was discharged 12.3. Hemoglobin 12.1 compared to 10-12during last admission INR is 1.0, BMP and liver enzymes were unremarkable for significant illness except for potassium 5.3 with hemolyzed sample EKG showing normal sinus tachycardia at [address]-T changes, his EKG pattern similar to last time X-ray of the left tibia and fibula showing no evidence of acute osteomyelitis no significant change from recent x-ray An emergency room patient received Benadryl and IV Solu Medrol 05/11/2022 In awake and alert, he feels overall better today, less dyspneic and more energetic and he was seen in walking the hallway by himself with no difficulty. Distal have persistent rash and both upper extremities, abdomen and back which looks the same as yesterday However the rash in the lower extremity showing slight improvement on the front while on the back looks the same In the left leg is bandaged is in place There are signs of started to respond to treatment however was too early and we need to wait for another 24-48 hours for full assessment Patient currently covered with clindamycin, blood culture are still pending and still negative so far. Also he was placed on IV Solu-Medrol. We will consult dermatology service given his extensive rash. For his high blood pressure is on metoprolol 25 mg, when going tomorrow to Norvasc 5 mg especially he is on steroids now Objective - Vital Signs Vital signs: Vital Signs Temp 97.6 F 05/11/22 11:37 Pulse 97 05/11/22 11:37 Resp 20 05/11/22 11:37 BP 159/80 05/11/22 11:37 Pulse Ox 97 05/11/22 11:37 FiO2 Intake & Output 05/10/22 05/11/22 05/11/22 18:59 06:59 18:59 Intake Total 1600 Balance 1600 Weight 240.404 kg Intake: Intake, IV Titration 1100 Amount Clindamycin 900 mg In 100 Dextrose 5% in Water 50 ml @ 50 mls/hr IVPB Q8HR ROBIN Rx#:[id number] Sodium Chloride 0.9% 1, 1000 000 ml @ 100 mls/hr IV . Q10H ROBIN Rx#:[id number] Oral 500 Other: Voiding Method Toilet Toilet # Voids 2 - Exam -GENERAL: The patient is alert and oriented x3, not in any acute distress. Morbidly obese HEENT: Pupils are round and equally reacting to light. EOMI. No scleral icterus. No conjunctival pallor. Normocephalic, atraumatic. No pharyngeal erythema. No thyromegaly. CARDIOVASCULAR: S1 and S2 present. No murmurs, rubs, or gallops. PULMONARY: Chest is clear to auscultation, no wheezing or crackles. ABDOMEN: Soft, nontender, nondistended, normoactive bowel sounds. No palpable organomegaly. MUSCULOSKELETAL: No joint swelling or deformity. -EXTREMITIES: No cyanosis, clubbing, or pedal edema. Left leg blister disease and a lesser extent right leg, improving cellulitis of the left leg, worsening confluent cellulitis of the left thigh just above the knee and posteriorly and the back of the thigh area NEUROLOGICAL: Gross neurological examination did not reveal any focal deficits. -SKIN: Bilateral maculopapular rash on both upper extremities and upper back e. - Labs CBC & Chem 7: 05/11/22 09:55 05/11/22 09:55 Labs: Abnormal Lab Results - Last 24 Hours (Table) 05/11/22 05/11/22 Range/Units 09:55 09:55 WBC 16.0 H (3.8-10.6) k/uL RBC 3.88 L (4.30-5.90) m/uL Hgb 11.7 L (13.0-17.5) gm/dL Hct 35.3 L (39.0-53.0) % Plt Count 487 H (150-450) k/uL Neutrophils # 12.9 H (1.3-7.7) k/uL Creatinine 0.62 L (0.66-1.25) mg/dL ALT 53 H (4-49) U/L Assessment and Plan Assessment: Left leg cellulitis with blistering Bilateral maculopapular rash involving both upper extremities and the back, Suspect rash possible sepsis with tachypnea, tachycardia and leukocytosis morbid obesity hypertension, uncontrolled on admission Plan: Continue with antibiotic clindamycin with ID team on the case Start the patient on normal saline 100 ml per hour Consults infectious disease team Start Norvasc and continue with metoprolol and when necessary hydralazine, please note patient also on steroids now I agree with Benadryl and ampicillin withdrawal and will add Pepcid patient is currently on IV Solu-Medrol Consults rheumatology service for his rash Labs and medication were reviewed.. Continue same treatment. Continue with symptomatic treatment. Resume home medication. Monitor labs and vitals. DVT and GI prophylaxis. Further recommendations as per clinical course of the patient DVT prophylaxis: Subcutaneous heparin GI Prophylaxis: Pepcid PT/OT: Patient is walking the hallway by himself with no difficulty. Prognosis is guarded
[2022-05-11] MEDS: amLODIPine 5 MG TAB PO SCH (21:57)
[2022-05-12] MEDS: methylPREDNISolone SOD SUCCI 125 MG/2 ML VIAL IV SCH ×2 (05:41→11:41)
[2022-05-12] MEDS: METOPROLOL SUCCINATE (ER) 25 MG TAB.ER.24H PO SCH (08:50)
[2022-05-12] MEDS: CLINDAMYCIN 900 MG in DEXTROSE 5% IN WATER 50 ML IVPB SCH ×6 (08:50→23:48)
[2022-05-12] MEDS: amLODIPine 5 MG TAB PO SCH (08:50)
[2022-05-12] MEDS: HEPARIN SODIUM,PORCINE/PF 5,000 UNIT/0.5 ML SYRINGE SQ SCH ×3 (08:50→23:48)
[2022-05-12] MEDS: FAMOTIDINE 20 MG/2 ML VIAL IV SCH ×2 (08:50→20:12)
[2022-05-12] MEDS: SODIUM CHLORIDE 0.9% 1,000 ML IV SCH (08:51)
[2022-05-12 15:34] LABS: Basophils # (A) 0.01 X 10*3/uL (0.00-0.10); Basophils % (A) 0.1 %; Eosinophils # (A) 0 X 10*3/uL (0.04-0.35); Eosinophils % (A) 0 %; HCT 35.6 % (39.6-50.0); HGB 11.2 g/dL (13.0-17.0); Immature Grans, Automated 0.6 %; Lymphocytes # (A) 0.96 X 10*3/uL (0.90-5.00); Lymphocytes % (A) 6.2 %; MCH 29.2 pg (27.0-32.0); MCHC 31.5 g/dL (32.0-37.0); MCV 92.7 fL (80.0-97.0); Mean Platelet Volume 10.1 fL (9.5-12.2); Monocytes # (A) 0.31 X 10*3/uL (0.20-1.00); NRBC Per 100 WBC 0 /100 WBCS (0.0-0.0); Neutrophils # (A) 14.01 X 10*3/uL (1.80-7.70); Neutrophils % (A) 91.1 %; Platelet Count 566 X 10*3/uL (140-440); RBC 3.84 X 10*6/uL (4.40-5.60); RDW 13.1 % (11.5-14.5); WBC 15.39 X 10*3/uL (4.50-10.00)
[2022-05-12 16:24] LABS: African American GFR (CKD) 153.1 (60.0-200.0); Blood Urea Nitrogen 11.9 mg/dL (9.0-27.0); Calcium 9.7 mg/dL (8.7-10.3); Non-African American GFR(CKD) 132.1 (60.0-200.0); Potassium 4.8 mmol/L (3.5-5.5)
--- NOTE | 2022-05-12 18:58 | P.PN ---
Subjective Progress Note Date: 05/12/22 Principal diagnosis: Left leg cellulitis and drug rash Patient is a 26 year old male with a recent admission to the hospital with extensive left lower extremity cellulitis stabilized discharged on oral Keflex presented back to the hospital with extensive drug rash related to Keflex which has been discontinued, still have component of left leg cellulitis not completely resolved. On today's evaluation that is 05/12/2022 the patient remains to be afebrile, the patient is breathing comfortably no chest pain no shortness of breath or cough patient denies pain to the left lower extremity still have rash especially to the left lower extremity and right posterior leg Objective - Vital Signs Vital signs: Vital Signs Temp 97.9 F 05/12/22 11:47 Pulse 100 05/12/22 11:47 Resp 18 05/12/22 11:47 BP 151/80 05/12/22 11:47 Pulse Ox 99 05/12/22 11:47 FiO2 Intake & Output 05/11/22 05/12/22 05/12/22 18:59 06:59 18:59 Intake Total 50 2210 Balance 50 2210 Intake: Intake, IV Titration 50 1250 Amount Clindamycin 900 mg In 50 50 Dextrose 5% in Water 50 ml @ 50 mls/hr IVPB Q8HR ROBIN Rx#:[id number] Sodium Chloride 0.9% 1, 1200 000 ml @ 100 mls/hr IV . Q10H ROBIN Rx#:[id number] Oral 960 Other: Voiding Method Toilet Toilet Toilet # Voids 1 - Exam GENERAL DESCRIPTION: A middle-age male up in the chair in no distress RESPIRATORY SYSTEM: Unlabored breathing , decreased breath sounds at bases HEART: S1 S2 regular rate and rhythm , ABDOMEN: Soft , no tenderness EXTREMITIES: Left leg is currently dressed no drainage on the dressing SKIN: Extensive macular papular rash especially left thigh and upper extremity - Labs CBC & Chem 7: 05/12/22 10:37 05/12/22 10:37 Labs: Microbiology - Last 24 Hours (Table) 05/10/22 11:54 Blood Culture - Preliminary Blood No Growth after 24 hours 05/10/22 11:54 Blood Culture - Preliminary Blood No Growth after 24 hours Assessment and Plan (1) Drug rash Current Visit: Yes Status: Acute Code(s): L27.0 - GEN SKIN ERUPTION DUE TO DRUGS AND MEDS TAKEN INTERNALLY SNOMED Code(s): 02545376 (2) Left leg cellulitis Current Visit: Yes Status: Acute Code(s): L03.116 - CELLULITIS OF LEFT LOWER LIMB SNOMED Code(s): 272295690 Plan: 1patient with recent admission to the hospital and was treated for extensive cellulitis of left lower extremity and this patient clinic responded to the cefazolin unfortunately not developing a rash more likely to Keflex which has been discontinued, clinically doubt MRSA infection. 2-local care with ABD to the blister area followed by Gopi wrap change daily discussed with the RN 3patient to continue with the clindamycin 900 milligrams IV piggyback every 8 hours for his left lower extremity cellulitis and continue with the Solu-Medrol in view of the extensive rash and monitor clinical course closely discussed in detail with the parents at the bedside Time with Patient: Less than 30
[2022-05-12] MEDS: METOPROLOL SUCCINATE (ER) 50 MG TAB.ER.24H PO SCH (20:12)
--- NOTE | 2022-05-12 22:44 | PN ---
PROGRESS NOTE DATE OF SERVICE: 05/12/2022 SUBJECTIVE: This is a 26-year-old gentleman who was admitted with drug rash and cellulitis, is being closely monitored. No chest pain. No palpitations. No fever. OBJECTIVE: VITAL SIGNS: Pulse is 100, blood pressure 151/80, respirations 18. CHEST: Clear to auscultation. CARDIOVASCULAR: S1, S2. ABDOMEN: Soft. SKIN: Diffuse rash present. LABORATORY DATA: Reviewed. ASSESSMENT: 1. Diffuse skin rash, possible left leg cellulitis with drug rash. 2. Hypertension. 3. Obesity with body mass index 71.9. RECOMMENDATIONS AND DISCUSSION: This is a 26-year-old gentleman, who presented with multiple complex medical issues, we will monitor the patient closely. We will continue to monitor. Otherwise, continue with clindamycin. Repeat labs. Guarded prognosis. Further recommendations to follow. MMODL / IJN: [id number] /
[2022-05-13 06:04] LABS: Rheumatoid Factor, Qnt <10 IU/mL (0-15)
[2022-05-13] MEDS: CLINDAMYCIN 900 MG in DEXTROSE 5% IN WATER 50 ML IVPB SCH ×2 (10:14)
[2022-05-13] MEDS: METOPROLOL SUCCINATE (ER) 50 MG TAB.ER.24H PO SCH ×2 (10:15→22:02)
[2022-05-13] MEDS: FAMOTIDINE 20 MG/2 ML VIAL IV SCH (10:16)
[2022-05-13] MEDS: HEPARIN SODIUM,PORCINE/PF 5,000 UNIT/0.5 ML SYRINGE SQ SCH ×2 (10:16→16:51)
[2022-05-13] MEDS: amLODIPine 10 MG TAB PO SCH (10:16)
--- NOTE | 2022-05-13 11:42 | CDI ---
Documentation Clarification Form Date: 05/13/2022 11:25:22 AM From: Heather Paul RN, CCDS Email: [email or web address] Admit Date: 05/10/2022 1:09:00 PM Patient Name: Geraldo Allen Visit Number: [id number] Discharge Date: ATTENTION: The Clinical Documentation Specialists (CDI) and [facility] Coding Staff appreciate your assistance in clarifying documentation. Please respond to the clarification below the line at the bottom and electronically sign. The CDI & [facility] Coding staff will review the response and follow-up if needed. Please note: Queries are made part of the Legal Health Record. If you have any questions, please contact the author of this message via ITS. Dr. Arevalo E Sheet Possible sepsis is documented in the 05/10 and 05/11 progress notes but is not noted in subsequent documentation. Clarification is requested. History/Risk Factors: Admitted with left leg cellulitis with blistering. Bilateral maculopapular rash involving both upper extremities and the back. Suspect drug rash. Clinical Indicators: 05/10 and 05/11 IM: "possible sepsis with tachypnea, tachycardia and leukocytosis." 05/12 ID: "developing a rash more likely to Keflex which has been discontinued, clinically doubt MRSA infection." Labs: 05/10 WBC 12.5. 05/11 WBC 16.0. 05/12 WBC 15.39 05/10 Blood cultures: no growth Vital signs: Temp 97.4-98.4, HR 71-114, RR 15-20 Treatment: IV Vancomycin 2500mg x1 on 05/10. 0.9 NS @100/hr. IV Clindamycin 900mg Q8H Please clarify: [ ] Sepsis confirmed, remains under treatment [ ] Sepsis confirmed, resolved [ ] Sepsis ruled out [ ] Other condition, please specify [ ] Unable to determine please read my note , it is well documented MTDD
[2022-05-13] MEDS ORDERED: VANCOMYCIN IV PER PHARMACY 1 EACH MISC MISCELLANE PRN (12:50)
--- NOTE | 2022-05-13 13:44 | P.CONS ---
History of Present Illness - Reason for Consult Consult date: 05/13/22 Requesting physician: Mickey Chen Sheet - Chief Complaint skin rash - History of Present Illness this is a 26-year-old male with no medical problems was admitted with generalized skin rash this started May 09 and came to the hospital in May 12 and was admitted. The patient was in the hospital from April 30 of May 05 with a left leg cellulitis. The patient apparently bumped into something and developed a blister with swelling and redness and was diagnosed with left leg cellulitis and was IV clindamycin and was discharged home on Keflex on May 05 he was on this medication for a few days and he started having a generalized skin eruption on May 09 and is now back in the hospital. Review of Systems Constitutional: Denies as per HPI, Denies anorexia, Denies chills, Denies chronic headaches, Denies chronic pain, Denies daytime sleepiness, Denies fatigue, Denies fever, Denies lethargy, Denies malaise, Denies night sweats, Denies poor appetite, Denies sweats, Denies weakness, Denies weight gain, Denies weight loss Past Medical History Past Medical History: No Reported History Additional Past Medical History / Comment(s): celllitis History of Any Multi-Drug Resistant Organisms: None Reported Past Surgical History: No Surgical Hx Reported Past Anesthesia/Blood Transfusion Reactions: No Reported Reaction Past Psychological History: No Psychological Hx Reported Smoking Status: Light tobacco smoker Past Alcohol Use History: Occasional Past Drug Use History: None Reported Medications and Allergies Home Medications Medication Instructions Recorded Confirmed Type Cephalexin [Keflex] 500 mg PO Q6HR #56 cap 05/05/22 05/10/22 Rx Allergies Allergy/AdvReac Type Severity Reaction Status Date / Time cephalexin [From Keflex] Allergy Rash/Hives Verified 05/10/22 16:42 Physical Exam Vitals: Vital Signs Temp Pulse Pulse Resp BP BP Pulse Ox 05/13/22 10:08 71 160/96 05/13/22 09:38 99 05/13/22 08:00 97.9 F 88 88 15 160/85 99 05/13/22 01:00 97.8 F 78 17 151/81 95 05/12/22 19:12 98.2 F 103 H 16 163/78 97 FiO2 05/13/22 10:08 04/04/23 09:38 21 05/13/22 08:00 05/13/22 01:00 05/12/22 19:12 Intake and Output 05/12/22 05/13/22 05/13/22 22:59 06:59 14:59 Intake Total 1100 Balance 1100 Intake: Intake, IV Titration 1100 Amount Clindamycin 900 mg In 100 Dextrose 5% in Water 50 ml @ 50 mls/hr IVPB Q8HR [facility] Rx#:[id number] Sodium Chloride 0.9% 1, 1000 000 ml @ 100 mls/hr IV . Q10H [facility] Rx#:[id number] Other: Voiding Method Toilet Toilet # Voids 1 1 - Constitutional General appearance: morbidly obese - EENT Eyes: no abnormal pupil, no disc margins sharp, no edentulous, EOMI, no PERRLA, no fundus normal, no photophobia, no dentition normal, no poor dentition, no ptosis, no scleral icterus, no normal appearance ENT: no hard of hearing, no hearing grossly normal, no NA/AT, no normal oropharynx, no other, no pharyngeal erythema, no thrush, no tonsillar exudates, no tonsillar swelling - Neck Neck: no lymphadenopathy, no normal ROM, no other, no rigidity, no stridor, no thyromegaly Thyroid: negative: normal size - Respiratory Respiratory: bilateral: CTA - Cardiovascular Rhythm: regular leg Peripheral Edema: right: 1+, left: 2+ - Gastrointestinal General gastrointestinal: no absent bowel sounds, no decreased bowel sounds, no distended, no hepatomegaly, no hyperactive bowel sounds, no normal bowel sounds, no organomegaly, no rigid, no scaphoid, no soft, no splenomegaly, no tenderness, no umbilical hernia, no ventral hernia - Integumentary Integumentary: cellulitis (redness noted over the left ankle and lower part of leg), rash (diffuse maculopapular rash over both arms and both legs and back, non-pruritic and does not look like vasculitis), ulcer (blistering skin left lower leg currently wrapped up) - Neurologic Neurologic: CNII-XII intact, focal deficits - Musculoskeletal Musculoskeletal: no gait normal, no generalized weakness, no strength equal bilaterally, no right sided weakness, no left sided weakness - Psychiatric Psychiatric: no A&O x's 3, no appropriate affect, no intact judgment & insight Results CBC & Chem 7: 05/12/22 10:37 05/12/22 10:37 Labs: Abnormal Lab Results - Last 24 Hours (Table) 05/12/22 05/12/22 05/12/22 Range/Units 10:37 10:37 16:47 WBC 15.39 H (4.50-10.00) X 10*3/uL RBC 3.84 L (4.40-5.60) X 10*6/uL Hgb 11.2 L (13.0-17.0) g/dL Hct 35.6 L (39.6-50.0) % MCHC 31.5 L (32.0-37.0) g/dL Plt Count 566 H (140-440) X 10*3/uL Immature Gran # 0.10 H (0.00-0.04) X 10*3/uL Neutrophils # 14.01 H (1.80-7.70) X 10*3/uL Eosinophils # 0 L (0.04-0.35) X 10*3/uL Glucose 126 H (70-110) mg/dL C-Reactive Protein 4.0 H (<1.0) mg/dL Microbiology - Last 24 Hours (Table) 05/10/22 11:54 Blood Culture - Preliminary Blood No Growth after 48 hours 05/10/22 11:54 Blood Culture - Preliminary Blood No Growth after 48 hours Assessment and Plan (1) Drug rash Current Visit: Yes Status: Acute Code(s): L27.0 - GEN SKIN ERUPTION DUE TO DRUGS AND MEDS TAKEN INTERNALLY SNOMED Code(s): 72459696 (2) Left leg cellulitis Current Visit: Yes Status: Acute Code(s): L03.116 - CELLULITIS OF LEFT LOWER LIMB SNOMED Code(s): 553685223 Plan: the patient's generalized skin rash is most likely drug related since it was acute and generalized. The patient did have a CHAPIS and rheumatoid factor that were negative and I highly doubt a systemic connective tissue or a vasculitis causing this symptom. if he continues to have chronic nonhealing ulcers he may need a biopsy. I have nothing further to add on this patient Please do not hesitate call me for any further questions Time with Patient: Less than 30
[2022-05-13] MEDS ORDERED: DEXTROSE 50% SYRINGE 50 ML IVP PRN ×2 (15:11)
[2022-05-13] MEDS: VANCOMYCIN 2,500 MG in SODIUM CHLORIDE 0.9% 500 ML 500 ML IVPB SCH ×2 (15:28→22:01)
[2022-05-13] MEDS: diphenhydrAMINE 25 MG CAP PO SCH ×2 (15:28→22:01)
[2022-05-13] MEDS: methylPREDNISolone SOD SUCCI 40 MG/ML 1 ML VIAL IV SCH (16:51)
--- NOTE | 2022-05-13 17:33 | P.PN ---
Subjective Progress Note Date: 05/13/22 Principal diagnosis: Left leg cellulitis and drug rash Patient is a 26 year old male with a recent admission to the hospital with extensive left lower extremity cellulitis stabilized discharged on oral Keflex presented back to the hospital with extensive drug rash related to Keflex which has been discontinued, still have component of left leg cellulitis not completely resolved. On today's evaluation that is 05/13/2022 the patcontinues be afebrile, the patient is breathing comfortably on room air, the patient denies chest pain no shortness of breath or cough patient denies pain to the left lower extremity still have rash especially to the left lower extremity and right posterior leg Objective - Vital Signs Vital signs: Vital Signs Temp 97.9 F 05/13/22 08:00 Pulse 71 05/13/22 10:08 Resp 15 05/13/22 08:00 BP 160/96 05/13/22 10:08 Pulse Ox 99 05/13/22 09:38 FiO2 21 05/13/22 09:38 Intake & Output 05/12/22 05/13/22 05/13/22 18:59 06:59 18:59 Intake Total 1100 Balance 1100 Intake: Intake, IV Titration 1100 Amount Clindamycin 900 mg In 100 Dextrose 5% in Water 50 ml @ 50 mls/hr IVPB Q8HR [facility] Rx#:[id number] Sodium Chloride 0.9% 1, 1000 000 ml @ 100 mls/hr IV . Q10H [facility] Rx#:[id number] Other: Voiding Method Toilet Toilet Toilet # Voids 1 1 - Exam GENERAL DESCRIPTION: A middle-age male up in the chair in no distress RESPIRATORY SYSTEM: Unlabored breathing , decreased breath sounds at bases HEART: S1 S2 regular rate and rhythm , ABDOMEN: Soft , no tenderness EXTREMITIES: Left leg is currently dressed no drainage on the dressing SKIN: Extensive macular papular rash especially left thigh and upper extremity - Labs CBC & Chem 7: 05/12/22 10:37 05/12/22 10:37 Labs: Abnormal Lab Results - Last 24 Hours (Table) 05/12/22 05/12/22 05/12/22 Range/Units 10:37 10:37 16:47 WBC 15.39 H (4.50-10.00) X 10*3/uL RBC 3.84 L (4.40-5.60) X 10*6/uL Hgb 11.2 L (13.0-17.0) g/dL Hct 35.6 L (39.6-50.0) % MCHC 31.5 L (32.0-37.0) g/dL Plt Count 566 H (140-440) X 10*3/uL Immature Gran # 0.10 H (0.00-0.04) X 10*3/uL Neutrophils # 14.01 H (1.80-7.70) X 10*3/uL Eosinophils # 0 L (0.04-0.35) X 10*3/uL Glucose 126 H (70-110) mg/dL C-Reactive Protein 4.0 H (<1.0) mg/dL Microbiology - Last 24 Hours (Table) 05/10/22 11:54 Blood Culture - Preliminary Blood No Growth after 48 hours 05/10/22 11:54 Blood Culture - Preliminary Blood No Growth after 48 hours Assessment and Plan (1) Drug rash Current Visit: Yes Status: Acute Code(s): L27.0 - GEN SKIN ERUPTION DUE TO DRUGS AND MEDS TAKEN INTERNALLY SNOMED Code(s): 65613509 (2) Left leg cellulitis Current Visit: Yes Status: Acute Code(s): L03.116 - CELLULITIS OF LEFT LOWER LIMB SNOMED Code(s): 051216720 Plan: 1patient with recent admission to the hospital and was treated for extensive cellulitis of left lower extremity and this patient clinic responded to the cefazolin unfortunately not developing a rash more likely to Keflex which has been discontinued, clinically doubt MRSA infection. 2-local care with ABD to the blister area followed by Gopi wrap change daily discussed with the RN 3patient has not shown improvement and did have worsening of the rash we will go ahead and discontinue Pepcid as well as clindamycin start the patient on vancomycin and monitor clinical course closely Time with Patient: Less than 30
[2022-05-13 17:53] LABS: Glucose,Whole Blood 88 mg/dL (70-110)
[2022-05-13] MEDS: INSULIN ASPART (NovoLOG) 100 UNIT/ML VIAL SQ SCH ×2 (18:06→22:05)
[2022-05-13 22:01] LABS: Glucose,Whole Blood 111 mg/dL (70-110)
[2022-05-13] MEDS: FAMOTIDINE 20 MG TAB PO SCH (22:02)
[2022-05-14] MEDS: methylPREDNISolone SOD SUCCI 40 MG/ML 1 ML VIAL IV SCH ×3 (00:32→16:48)
[2022-05-14] MEDS: HEPARIN SODIUM,PORCINE/PF 5,000 UNIT/0.5 ML SYRINGE SQ SCH ×4 (00:32→23:57)
--- NOTE | 2022-05-14 03:30 | PN ---
PROGRESS NOTE DATE OF SERVICE: 05/13/2022 SUBJECTIVE: This is a 26-year-old gentleman with significant cellulitis of the left leg, also had extensive rash also, possibly drug-induced. The patient had maculopapular rashes extensively over the body in both legs and as well as left arm and trunk also. Autoimmune antibody screen is negative. OBJECTIVE: VITAL SIGNS: Pulse is 88, blood pressure 160/85, respirations 15. CHEST: Clear to auscultation. CARDIOVASCULAR: S1, S2 muffled. ABDOMEN: Soft. SKIN: Rashes. EXTREMITIES: Left leg cellulitis also present. LABORATORY DATA: Reviewed. ASSESSMENT: 1. Diffuse skin rash, possibly secondary to Kefzol. 2. Left leg cellulitis with failure of outpatient treatment. 3. Hypertension. 4. Obesity with body mass index 71.9. RECOMMENDATIONS AND DISCUSSION: I recommend to continue current medications, continue symptomatic treatment. Otherwise, at this time, I recommend continue with Norvasc and continue with antibiotics per Dr. Pizarro. Short course of steroids. Further recommendations to follow. MMODL / IJN: [id number] /
[2022-05-14] MEDS: VANCOMYCIN 2,500 MG in SODIUM CHLORIDE 0.9% 500 ML 500 ML IVPB SCH ×3 (05:20→21:41)
[2022-05-14] MEDS: hydrALAZINE HCL 25 MG TAB PO PRN (05:20)
[2022-05-14 07:33] LABS: African American GFR (CKD) >90 (>60 ml/min/1.73 sqM); Anion Gap 9 mmol/L; Blood Urea Nitrogen 14 mg/dL (9-20); Calcium 9.2 mg/dL (8.4-10.2); Carbon Dioxide 27 mmol/L (22-30); Chloride 105 mmol/L (98-107); Glucose 105 mg/dL (74-99); Non-African American GFR(CKD) >90 (>60 ml/min/1.73 sqM); Potassium 4.7 mmol/L (3.5-5.1); Sodium 141 mmol/L (137-145)
[2022-05-14 07:42] LABS: Glucose,Whole Blood 105 mg/dL (70-110)
[2022-05-14] MEDS: INSULIN ASPART (NovoLOG) 100 UNIT/ML VIAL SQ SCH ×4 (07:49→21:41)
[2022-05-14] MEDS: METOPROLOL SUCCINATE (ER) 50 MG TAB.ER.24H PO SCH ×2 (08:32→21:41)
[2022-05-14] MEDS: diphenhydrAMINE 25 MG CAP PO SCH ×3 (08:32→21:41)
[2022-05-14] MEDS: FAMOTIDINE 20 MG TAB PO SCH ×2 (08:32→21:41)
[2022-05-14] MEDS: amLODIPine 10 MG TAB PO SCH (08:32)
--- NOTE | 2022-05-14 11:49 | PN ---
PROGRESS NOTE DATE OF SERVICE: 05/14/2022 SUBJECTIVE: This is a 26-year-old gentleman, who was admitted with acute skin rash, also had cellulitis with chest pain. No palpitations. No fever. The patient is on antibiotics. OBJECTIVE: VITAL SIGNS: Pulse is 83, blood pressure 153/92, respirations 19. CHEST: Clear. ABDOMEN: Soft. SKIN: Diffuse skin rash present. Left leg ulcer and cellulitis also present. LABORATORY DATA: Reviewed. ASSESSMENT: 1. Diffuse skin rash, possibly secondary to Kefzol and drug rash. 2. Left leg cellulitis with failure of outpatient treatment. 3. Hypertension. 4. Obesity with body mass index of 71.9. RECOMMENDATIONS AND DISCUSSION: Recommend to continue current medications, continue with antibiotics, continue with symptomatic treatment for the rash and calamine lotion. Further recommendations to follow. MMODL / IJN: [id number] /
[2022-05-14 12:39] LABS: Glucose,Whole Blood 158 mg/dL (70-110)
--- NOTE | 2022-05-14 14:20 | P.PN ---
Subjective Progress Note Date: 05/14/22 Principal diagnosis: Left leg cellulitis and drug rash Patient is a 26 year old male with a recent admission to the hospital with extensive left lower extremity cellulitis stabilized discharged on oral Keflex presented back to the hospital with extensive drug rash related to Keflex which has been discontinued, still have component of left leg cellulitis not completely resolved. On today's evaluation that is 05/14/2022 the patient denies having any fever or any chills, the patient is breathing comfortably on room air, the patient denies chest pain no shortness of breath or cough patient left lower extremity swelling redness has decreased and the patient rash has also decreased in intensity Objective - Vital Signs Vital signs: Vital Signs Temp 97.8 F 05/14/22 07:50 Pulse 83 05/14/22 07:50 Resp 19 05/14/22 07:50 BP 153/92 05/14/22 07:50 Pulse Ox 93 L 05/14/22 07:50 FiO2 21 05/13/22 09:38 Intake & Output 05/13/22 05/14/22 05/14/22 18:59 06:59 18:59 Intake Total 600 590 Balance 600 590 Intake: Intake, IV Titration 600 Amount Clindamycin 900 mg In 100 Dextrose 5% in Water 50 ml @ 50 mls/hr IVPB Q8HR [facility] Rx#:[id number] Vancomycin 2,500 mg In 500 Sodium Chloride 0.9% 500 ml 500 ml @ 167 mls/hr IVPB Q8H [facility] Rx#: [id number] Oral 590 Other: Voiding Method Toilet Toilet # Voids 1 2 - Exam GENERAL DESCRIPTION: A middle-age male up in the chair in no distress RESPIRATORY SYSTEM: Unlabored breathing , decreased breath sounds at bases HEART: S1 S2 regular rate and rhythm , ABDOMEN: Soft , no tenderness EXTREMITIES: Left leg swelling redness has decreased no foul-smelling drainage SKIN: Extensive macular papular rash especially left thigh and upper extremity, which has decreased in intensity - Labs CBC & Chem 7: 05/12/22 10:37 05/14/22 07:11 Labs: Abnormal Lab Results - Last 24 Hours (Table) 05/13/22 05/14/22 05/14/22 Range/Units 22:00 07:11 12:37 Creatinine 0.63 L (0.66-1.25) mg/dL Glucose 105 H (74-99) mg/dL POC Glucose (mg/dL) 111 H 158 H (70-110) mg/dL Microbiology - Last 24 Hours (Table) 05/13/22 15:45 Wound Culture - Preliminary Leg - Left 05/10/22 11:54 Blood Culture - Preliminary Blood No Growth after 72 hours 05/10/22 11:54 Blood Culture - Preliminary Blood No Growth after 72 hours Assessment and Plan (1) Drug rash Current Visit: Yes Status: Acute Code(s): L27.0 - GEN SKIN ERUPTION DUE TO DRUGS AND MEDS TAKEN INTERNALLY SNOMED Code(s): 12164734 (2) Left leg cellulitis Current Visit: Yes Status: Acute Code(s): L03.116 - CELLULITIS OF LEFT LOWER LIMB SNOMED Code(s): 495049256 Plan: 1patient with recent admission to the hospital and was treated for extensive cellulitis of left lower extremity and this patient clinic responded to the c efazolin unfortunately not developing a rash more likely to Keflex which has been discontinued, clinically doubt MRSA infection. 2-local care with ABD to the blister area followed by Gopi wrap change daily discussed with the RN 3patient has shown some clinical improvement with addition of the vancomycin as well as Solu-Medrol per admitting team, and will monitor the patient closely Time with Patient: Less than 30
[2022-05-14] MEDS ORDERED: CALAMINE/ZINC OXIDE LOTION 177 ML BTL TOPICAL PRN (15:51)
[2022-05-14 17:38] LABS: Glucose,Whole Blood 111 mg/dL (70-110)
[2022-05-14 20:19] LABS: Glucose,Whole Blood 134 mg/dL (70-110)
[2022-05-15] MEDS: hydrALAZINE HCL 25 MG TAB PO PRN (02:44)
[2022-05-15] MEDS ORDERED: VANCOMYCIN TROUGH DUE 1 EACH MISC MISCELLANE ONE (05:00)
[2022-05-15] MEDS: VANCOMYCIN 2,500 MG in SODIUM CHLORIDE 0.9% 500 ML 500 ML IVPB SCH (05:33)
[2022-05-15 06:59] LABS: Glucose,Whole Blood 84 mg/dL (70-110)
[2022-05-15] MEDS: INSULIN ASPART (NovoLOG) 100 UNIT/ML VIAL SQ SCH ×2 (08:08→12:00)
[2022-05-15] MEDS: HEPARIN SODIUM,PORCINE/PF 5,000 UNIT/0.5 ML SYRINGE SQ SCH (09:32)
[2022-05-15] MEDS: amLODIPine 10 MG TAB PO SCH (09:32)
[2022-05-15] MEDS: diphenhydrAMINE 25 MG CAP PO SCH ×2 (09:32→15:13)
[2022-05-15] MEDS: FAMOTIDINE 20 MG TAB PO SCH (09:32)
[2022-05-15] MEDS: METOPROLOL SUCCINATE (ER) 50 MG TAB.ER.24H PO SCH (09:32)
[2022-05-15 11:08] LABS: Glucose,Whole Blood 84 mg/dL (70-110)
[2022-05-15 13:05] VITALS: BP 155/93; PULSE 78; RESP 20; TEMP 97.5
[2022-05-15] MEDS ORDERED: VANCOMYCIN 2,250 MG in SODIUM CHLORIDE 0.9% 500 ML 500 ML IVPB SCH (14:00)
--- NOTE | 2022-05-15 15:35 | P.PN ---
Subjective Progress Note Date: 05/15/22 Principal diagnosis: Left leg cellulitis and drug rash Patient is a 26 year old male with a recent admission to the hospital with extensive left lower extremity cellulitis stabilized discharged on oral Keflex presented back to the hospital with extensive drug rash related to Keflex which has been discontinued, still have component of left leg cellulitis not completely resolved. On today's evaluation that is 05/15/2022 the patient remains to be afebrile, the patient is breathing comfortably on room air, the patient denies chest pain no shortness of breath or cough patient left lower extremity swelling redness has decreased and there is no drainage the wounds are growing out, the patient rash has also decreased in intensity Objective - Vital Signs Vital signs: Vital Signs Temp 97.8 F 05/15/22 07:41 Pulse 70 05/15/22 07:41 Resp 18 05/15/22 07:41 BP 160/94 05/15/22 07:41 Pulse Ox 97 05/15/22 07:41 FiO2 21 05/13/22 09:38 Intake & Output 05/14/22 05/15/22 05/15/22 18:59 06:59 18:59 Intake Total 500 1600 Balance 500 1600 Intake: Intake, IV Titration 500 1000 Amount Vancomycin 2,500 mg In 500 1000 Sodium Chloride 0.9% 500 ml 500 ml @ 167 mls/hr IVPB Q8H [facility] Rx#: [id number] Oral 600 Other: Voiding Method Toilet Toilet Toilet # Voids 3 3 # Bowel Movements 1 - Exam GENERAL DESCRIPTION: A middle-age male up in the chair in no distress RESPIRATORY SYSTEM: Unlabored breathing , decreased breath sounds at bases HEART: S1 S2 regular rate and rhythm , ABDOMEN: Soft , no tenderness EXTREMITIES: Left leg swelling redness has decreased no foul-smelling drainage SKIN: Extensive macular papular rash especially left thigh and upper extremity, which has decreased in intensity - Labs CBC & Chem 7: 05/12/22 10:37 05/14/22 07:11 Labs: Abnormal Lab Results - Last 24 Hours (Table) 05/14/22 05/14/22 05/14/22 Range/Units 12:37 17:37 20:18 POC Glucose (mg/dL) 158 H 111 H 134 H (70-110) mg/dL Microbiology - Last 24 Hours (Table) 05/13/22 15:45 Gram Stain - Preliminary Leg - Left Wound Culture - Preliminary 05/10/22 11:54 Blood Culture - Preliminary Blood No Growth after 96 hours 05/10/22 11:54 Blood Culture - Preliminary Blood No Growth after 96 hours Assessment and Plan (1) Drug rash Current Visit: Yes Status: Acute Code(s): L27.0 - GEN SKIN ERUPTION DUE TO DRUGS AND MEDS TAKEN INTERNALLY SNOMED Code(s): 02516325 (2) Left leg cellulitis Current Visit: Yes Status: Acute Code(s): L03.116 - CELLULITIS OF LEFT LOWER LIMB SNOMED Code(s): 420890781 Plan: 1patient with recent admission to the hospital and was treated for extensive cellulitis of left lower extremity and this patient clinic responded to the cefazolin unfortunately not developing a rash more likely to Keflex which has been discontinued, clinically doubt MRSA infection. 2-local care with ABD to the blister area followed by Gopi wrap change daily discussed with the RN 3patient has shown some clinical improvement with addition of the vancomycin, cultures have been negative so far we will consider a short course of oral doxycycline on discharge and close out patient follow-up Time with Patient: Less than 30
--- NOTE | 2022-05-17 06:53 | P.DS ---
Providers Date of admission: 05/10/22 13:09 Expected date of discharge: 05/15/22 Attending physician: Mickey Giron MD Consults: 05/10/22 13:09 Consult Physician Urgent Consulting Provider: Asia Pizarro Consult Reason/Comments: Left leg cellulitis Do you want consulting provider notified?: Yes 05/11/22 21:24 Consult Physician Routine Consulting Provider: Melina Calderon Consult Reason/Comments: rash , generalized maculopapular Do you want consulting provider notified?: Yes, Notify in am Primary care physician: Aakash Marin [facility] Course: Final diagnosis Diffuse skin rash, most likely medication effect secondary to Left leg cellulitis with failure of outpatient treatment Hypertension Morbid obesity with BMI of 71.9 GI prophylaxis DVT prophylaxis Full code Discharge disposition Patient is being discharged in a stable condition with guarded prognosis to home. Patient will follow-up with Dr. Aakash Marin in the outpatient setting upon discharge. Patient is to continue with oral doxycycline and close outpatient follow-up with house player as well as infectious disease in the outpatient setting as scheduled. Total time taken is greater than 35 minutes. Hospital course This is a 26-year-old male who was recently admitted with diffuse rash noted over the body and was most likely found to be a reaction to Kefzol and was recently hospitalized for left lower extremity cellulitis and sent home. Patient started developing this rash and was evaluated by a house player along with infectious disease. Patient was continued on IV antibiotics and showing some improvement as well as as needed controlled. Patient will be continued on oral doxycycline twice daily for the next 10 days with close outpatient follow- up with infectious disease. Recommend continue with local wound care on the left lower extremity and elevating will rest. Please refer to other consultation notes for further HPI. Currently no reports of chest pain, shortness of breath, or palpitations. Patient is afebrile. No reports of nausea or vomiting and patient is tolerating diet. Patient will be discharged home today. Guarded prognosis Physical exam: Gen: This is a 26-year-old male who is awake, alert and oriented 3, well- developed, well-nourished, morbidly obese HEENT: Head is atraumatic, normocephalic. Pupils equal, round. Sclerae is anicteric. NECK: Supple. No JVD. No lymphadenopathy. No thyromegaly. LUNGS: Clear to auscultation. No wheezes or rhonchi. No intercostal retractions. HEART: Regular rate and rhythm. No murmur. ABDOMEN: Soft. Bowel sounds are present. No masses. No tenderness. EXTREMITIES: No pedal edema. No calf tenderness. Left freeman cellulitis showing some improvement with some decreased swelling noted NEUROLOGICAL: Patient is awake, alert and oriented x3. Cranial nerves 2 through 12 are grossly intact. Please refer to medication reconciliation sheet for a list of medications. The impression and plan of care has been dictated by Nikki Senior, Nurse Practitioner as directed. Dr. Renny MD I have performed a history and examination and MDM of this patient, discussed the same with the dictator, and agree with the dictator's assessment and plan as written ,documented as a scribe. Based on total visit time, I have performed more than 50% of the visit. Patient Condition at Discharge: Fair Plan - Discharge Summary Discharge Rx Participant: No New Discharge Prescriptions: New Doxycycline Hyclate 100 mg PO BID 10 Days #20 tab Calamine/Zinc Oxide Lotion [Calamine Lotion] 1 applic TOPICAL TID PRN #1 each PRN Reason: Skin Irritation amLODIPine [Norvasc] 10 mg PO DAILY #30 tab hydrALAZINE HCL [Apresoline] 25 mg PO BID PRN #60 tab PRN Reason: Blood Pressure - High diphenhydrAMINE [Benadryl] 50 mg PO TID PRN #30 cap PRN Reason: Itching Metoprolol Succinate (ER) [Toprol XL] 50 mg PO BID #60 tab Discontinued Cephalexin [Keflex] 500 mg PO Q6HR #56 cap Discharge Medication List Calamine/Zinc Oxide Lotion [Calamine Lotion] 1 applic TOPICAL TID PRN #1 each 05/15/22 [Rx] Doxycycline Hyclate 100 mg PO BID 10 Days #20 tab 05/15/22 [Rx] Metoprolol Succinate (ER) [Toprol XL] 50 mg PO BID #60 tab 05/15/22 [Rx] amLODIPine [Norvasc] 10 mg PO DAILY #30 tab 05/15/22 [Rx] diphenhydrAMINE [Benadryl] 50 mg PO TID PRN #30 cap 05/15/22 [Rx] hydrALAZINE HCL [Apresoline] 25 mg PO BID PRN #60 tab 05/15/22 [Rx] Follow up Appointment(s)/Referral(s): Melina Calderon MD [STAFF PHYSICIAN] - 06/04/22 9:30 am (This is the first available appointment they have.) Asia Pizarro MD [STAFF PHYSICIAN] - 05/26/22 2:45 pm Aakash Marin MD [Primary Care Provider] - 1-2 days (Office is closed for Easter Break. Please call office early next week to schedule a follow-up appt. ) Patient Instructions/Handouts: Metoprolol (By mouth), Doxycycline (By mouth), Diphenhydramine (By mouth), Hydralazine (By mouth), Amlodipine (By mouth), Pramoxine/Zinc Acetate (On the skin), Cellulitis (GEN), Acute Rash (DC) Activity/Diet/Wound Care/Special Instructions: Activity Limited until follow-up Follow-up with primary care provider on discharge follow-up with infectious disease outpatient Continue taking medications as prescribed Continue Benadryl as needed Continue with calamine lotion as needed Recommend monitoring blood pressure daily and keep her reading and follow-up with primary care provider Daily dressing change-supplies provided. Discharge Disposition: HOME SELF-CARE
== END 2022-05-15 16:23 | disposition home or self-care (01) | DRG 603 ==
LOC: EC 11:22 → 5NMEDONC 13:09
PROVIDERS: ADMIT Internal Medicine; ATTEND Internal Medicine
DX: L03.116 Cellulitis of left lower limb (principal); Z68.45 Body mass index [BMI] 70 or greater, adult; L27.0 Generalized skin eruption due to drugs and medicaments taken internally; T36.1X5A Adverse effect of cephalosporins and other beta-lactam antibiotics, initial encounter; I10 Essential (primary) hypertension; E66.01 Morbid (severe) obesity due to excess calories; F17.200 Nicotine dependence, unspecified, uncomplicated; Z28.310 Unvaccinated for COVID-19
CPT/HCPCS: 36415; 80048; 80053; 80076; 80202; 83605; 84145; 85025; 85610; 85730; 86038; 86140; 86431; 87040; 87070; 87205; 93005; 93970; 94760; 96365; 96366; 96372; 96375; 99285

== ENCOUNTER 2022-11-17 18:04 | Emergency (ER) | payer BC ==
--- NOTE | 2022-11-17 19:29 | ED ---
General Adult HPI - General Stated complaint: cellulitis L leg Time Seen by Provider: 11/17/22 19:28 Source: patient, RN notes reviewed Mode of arrival: ambulatory Limitations: no limitations - History of Present Illness Initial comments: 27-year-old male presents emergency Department chief complaint left leg infection. Patient's had prior cellulitis was hospitalized for this Patient states symptoms started again on Thursday. Patient states increasing redness mild discomfort. Patient had 99 temp at home. - Related Data Previous Rx's Medication Instructions Recorded Calamine/Zinc Oxide Lotion 1 applic TOPICAL TID PRN #1 each 05/15/22 [Calamine Lotion] Doxycycline Hyclate 100 mg PO BID 10 Days #20 tab 05/15/22 Metoprolol Succinate (ER) [Toprol 50 mg PO BID #60 tab 05/15/22 XL] amLODIPine [Norvasc] 10 mg PO DAILY #30 tab 05/15/22 diphenhydrAMINE [Benadryl] 50 mg PO TID PRN #30 cap 05/15/22 hydrALAZINE HCL [Apresoline] 25 mg PO BID PRN #60 tab 05/15/22 Sulfamethox-Tmp 800-160Mg [Bactrim 1 each PO Q12HR #20 tab 11/17/22 Ds] Allergies Allergy/AdvReac Type Severity Reaction Status Date / Time cephalexin [From Keflex] Allergy Rash/Hives Verified 11/17/22 19:26 Review of Systems ROS Statement: Those systems with pertinent positive or pertinent negative responses have been documented in the HPI. ROS Other: All systems not noted in ROS Statement are negative. Past Medical History Past Medical History: No Reported History Additional Past Medical History / Comment(s): celllitis History of Any Multi-Drug Resistant Organisms: None Reported Past Surgical History: No Surgical Hx Reported Past Anesthesia/Blood Transfusion Reactions: No Reported Reaction Past Psychological History: No Psychological Hx Reported Smoking Status: Light tobacco smoker Past Alcohol Use History: Occasional Past Drug Use History: None Reported General Exam - General Exam Comments Initial Comments: Visual Physical Exam Vital signs reviewed General: Well-appearing, nontoxic, no acute distress. Head: Normocephalic, atraumatic Eyes: PERRLA, EOMI ENT: Airway patent Chest: Nonlabored breathing Skin: No visual rash, normal skin tone Neuro: Alert and oriented 3 Musculoskeletal: No gross abnormalities Limitations: no limitations General appearance: alert, in no apparent distress Head exam: Present: atraumatic, normocephalic, normal inspection Neck exam: Present: normal inspection. Absent: tenderness, meningismus, lymphadenopathy Respiratory exam: Present: normal lung sounds bilaterally. Absent: respiratory distress, wheezes, rales, rhonchi, stridor Cardiovascular Exam: Present: normal rhythm, tachycardia, normal heart sounds. Absent: systolic murmur, diastolic murmur, rubs, gallop, clicks GI/Abdominal exam: Present: soft, normal bowel sounds. Absent: distended, tenderness, guarding, rebound, rigid Extremities exam: Present: other (Left leg erythematous changes, pulses are palpable there is old mucus stasis changes) Course Vital Signs 11/17/22 11/17/22 19:26 22:15 Temperature 98.3 F 98.3 F Pulse Rate 132 H 114 H Respiratory 18 18 Rate Blood Pressure 157/88 135/94 O2 Sat by Pulse 98 97 Oximetry Medical Decision Making - Medical Decision Making I performed a quick note portion of the signed Jude Moncada PA-C Was pt. sent in by a medical professional or institution (SELENE Fagan, DEMENTIA PROGRAM DIRECTOR, urgent care, hospital, or assisted...) When possible be specific @ -No Did you speak to anyone other than the patient for history (EMS, parent, family, police, friend...)? What history was obtained from this source @ -No Did you review nursing and triage notes (agree or disagree)? Why? @ -I reviewed and agree with nursing and triage notes Were old charts reviewed (outside hosp., previous admission, EMS record, old EKG, old radiological studies, urgent care reports/EKG's, assisted records)? Report findings @ -Reviewed prior laboratory studies Differential Diagnosis (chest pain, altered mental status, abdominal pain women, abdominal pain men, vaginal bleeding, weakness, fever, dyspnea, syncope, headache, dizziness, GI bleed, back pain, seizure, CVA, palpatations, mental hea lth, musculoskeletal)? @ -Cellulitis, venous stasis EKG interpreted by me (3pts min.). @ -None X-rays interpreted by me (1pt min.). @ -None done CT interpreted by me (1pt min.). @ -None done U/S interpreted by me (1pt. min.). @ -None done What testing was considered but not performed or refused? (CT, X-rays, U/S, labs)? Why? @ -None What meds were considered but not given or refused? Why? @ -None Did you discuss the management of the patient with other professionals (professionals i.e. , PA, DEMENTIA PROGRAM DIRECTOR, lab, RT, psych nurse, school social worker, chefs, teacher, aboriginal liaison officer, immigration case worker)? Give summary @ -No Was smoking cessation discussed for >3mins.? @ -No Was critical care preformed (if so, how long)? @ -No Were there social determinants of health that impacted care today? How? (Homelessness, low income, unemployed, alcoholism, drug addiction, transportation, low edu. Level, literacy, decrease access to med. care, penitentiary, rehab)? @ -No Was there de-escalation of care discussed even if they declined (Discuss DNR or withdrawal of care, Hospice)? DNR status @ -No What co-morbidities impacted this encounter? (DM, HTN, Smoking, COPD, CAD, Cancer, CVA, ARF, Chemo, Hep., AIDS, mental health diagnosis, sleep apnea, morbid obesity)? @ -None Was patient admitted / discharged? Hospital course, mention meds given and route, prescriptions, significant lab abnormalities, going to OR and other pertinent info. @ -Discharge patient agrees to plan of trying oral antibiotics did have strict return parameters laboratory studies reviewed Undiagnosed new problem with uncertain prognosis? @ -No Drug Therapy requiring intensive monitoring for toxicity (Heparin, Nitro, Insulin, Cardizem)? @ -No Were any procedures done? @ -No Diagnosis/symptom? @ -Left leg cellulitis Acute, or Chronic, or Acute on Chronic? @ -Acute Uncomplicated (without systemic symptoms) or Complicated (systemic symptoms)? @ -Uncomplicated Side effects of treatment? @ -No Exacerbation, Progression, or Severe Exacerbation? @ -No Poses a threat to life or bodily function? How? (Chest pain, USA, MA, pneumonia, PE, COPD, DKA, ARF, appy, cholecystitis, CVA, Diverticulitis, Homicidal, Suicidal, threat to staff... and all critical care pts) @ -No - Lab Data Result diagrams: 11/17/22 20:19 11/17/22 20:19 Lab Results 11/17/22 11/17/22 11/17/22 Range/Units 20:19 20:19 20:19 WBC 14.8 H (3.8-10.6) k/uL RBC 4.25 L (4.30-5.90) m/uL Hgb 13.0 (13.0-17.5) gm/dL Hct 38.7 L (39.0-53.0) % MCV 90.9 (80.0-100.0) fL MCH 30.5 (25.0-35.0) pg MCHC 33.6 (31.0-37.0) g/dL RDW 13.8 (11.5-15.5) % Plt Count 254 (150-450) k/uL MPV 8.3 Neutrophils % 84 % Lymphocytes % 10 % Monocytes % 4 % Eosinophils % 0 % Basophils % 0 % Neutrophils # 12.5 H (1.3-7.7) k/uL Lymphocytes # 1.5 (1.0-4.8) k/uL Monocytes # 0.6 (0-1.0) k/uL Eosinophils # 0.0 (0-0.7) k/uL Basophils # 0.0 (0-0.2) k/uL Sodium 135 L (137-145) mmol/L Potassium 3.7 (3.5-5.1) mmol/L Chloride 102 (98-107) mmol/L Carbon Dioxide 20 L (22-30) mmol/L Anion Gap 13 mmol/L BUN 12 (9-20) mg/dL Creatinine 0.98 (0.66-1.25) mg/dL Est GFR (CKD-EPI)AfAm >90 (>60 ml/min/1.73 sqM) Est GFR (CKD-EPI)NonAf >90 (>60 ml/min/1.73 sqM) Glucose 107 H (74-99) mg/dL Plasma Lactic Acid Nick 0.9 (0.7-2.0) mmol/L Calcium 9.3 (8.4-10.2) mg/dL Total Bilirubin 0.7 (0.2-1.3) mg/dL AST 32 (17-59) U/L ALT 37 (4-49) U/L Alkaline Phosphatase 64 (38-126) U/L Total Protein 7.7 (6.3-8.2) g/dL Albumin 4.1 (3.5-5.0) g/dL Disposition Clinical Impression: Left leg cellulitis Disposition: HOME SELF-CARE Condition: Stable Instructions (If sedation given, give patient instructions): Cellulitis (ED) Additional Instructions: Please return to the Emergency Department if symptoms worsen or any other concerns. Prescriptions: Sulfamethox-Tmp 800-160Mg [Bactrim Ds] 1 each PO Q12HR #20 tab Is patient prescribed a controlled substance at d/c from ED?: No Referrals: None,Stated [Primary Care Provider] - 1-2 days Time of Disposition: 21:38
[2022-11-17 19:32] VITALS: RESP 18; TEMP 98.3
[2022-11-17 21:04] LABS: Basophils % (A) 0 %; Eosinophils % (A) 0 %; HCT 38.7 % (39.0-53.0); Lymphocytes # (A) 1.5 k/uL (1.0-4.8); Lymphocytes % (A) 10 %; MCH 30.5 pg (25.0-35.0); MCHC 33.6 g/dL (31.0-37.0); MCV 90.9 fL (80.0-100.0); Mean Platelet Volume 8.3; Monocytes # (A) 0.6 k/uL (0-1.0); Monocytes % (A) 4 %; Neutrophils # (A) 12.5 k/uL (1.3-7.7); Neutrophils % (A) 84 %; Platelet Count 254 k/uL (150-450); RBC 4.25 m/uL (4.30-5.90); RDW 13.8 % (11.5-15.5); WBC 14.8 k/uL (3.8-10.6)
[2022-11-17 21:15] LABS: ALT 37 U/L (4-49); AST 32 U/L (17-59); African American GFR (CKD) >90 (>60 ml/min/1.73 sqM); Albumin 4.1 g/dL (3.5-5.0); Alkaline Phosphatase 64 U/L (38-126); Anion Gap 13 mmol/L; Blood Urea Nitrogen 12 mg/dL (9-20); Calcium 9.3 mg/dL (8.4-10.2); Carbon Dioxide 20 mmol/L (22-30); Chloride 102 mmol/L (98-107); Glucose 107 mg/dL (74-99); Non-African American GFR(CKD) >90 (>60 ml/min/1.73 sqM); Potassium 3.7 mmol/L (3.5-5.1); Sodium 135 mmol/L (137-145); Total Bilirubin 0.7 mg/dL (0.2-1.3); Total Protein 7.7 g/dL (6.3-8.2)
[2022-11-17] MEDS ORDERED: SULFAMETH-TMP DS STARTER PACK 2 TAB BTL PO STA (21:37)
[2022-11-17 23:54] VITALS: BP 135/94; PULSE 114
== END 2022-11-17 22:15 | disposition home or self-care (01) ==
LOC: EC 18:04
DX: L03.116 Cellulitis of left lower limb (principal); F17.200 Nicotine dependence, unspecified, uncomplicated
CPT/HCPCS: 36415; 80053; 83605; 85025; 99284

== ENCOUNTER 2023-05-04 08:27 | Inpatient (IN) | payer BC ==
[2023-05-04] MEDS ORDERED: VANCOMYCIN IV PER PHARMACY 1 EACH MISC MISCELLANE PRN ×2 (08:43→11:15)
--- NOTE | 2023-05-04 08:55 | ED ---
General Adult HPI - General Chief complaint: Extremity Problem,Nontraumatic Stated complaint: cellulitis Time Seen by Provider: 05/04/23 08:30 Source: patient, RN notes reviewed, old records reviewed Mode of arrival: ambulatory Limitations: no limitations - History of Present Illness Initial comments: This is a 27-year-old male who presents to the emergency department complaining that he is get cellulitis of the lower left leg. Patient states this has happened before and he needs to be admitted to the hospital. Patient states he has an infection to his left big toe where the nail is cutting into the skin. Patient denies any history of diabetes. Patient states he does think he has a low-grade fever. Patient denies any other symptoms at this time. Patient denies any cough congestion or sore throat. Patient Nu[place] any chest pain difficult breathing shortness of breath. Patient has any abdominal pain. - Related Data Previous Rx's Medication Instructions Recorded Calamine/Zinc Oxide Lotion 1 applic TOPICAL TID PRN #1 each 05/15/22 [Calamine Lotion] Doxycycline Hyclate 100 mg PO BID 10 Days #20 tab 05/15/22 Metoprolol Succinate (ER) [Toprol 50 mg PO BID #60 tab 05/15/22 XL] amLODIPine [Norvasc] 10 mg PO DAILY #30 tab 05/15/22 diphenhydrAMINE [Benadryl] 50 mg PO TID PRN #30 cap 05/15/22 hydrALAZINE HCL [Apresoline] 25 mg PO BID PRN #60 tab 05/15/22 Sulfamethox-Tmp 800-160Mg [Bactrim 1 each PO Q12HR #20 tab 11/17/22 Ds] Allergies Allergy/AdvReac Type Severity Reaction Status Date / Time cephalexin [From Keflex] Allergy Rash/Hives Verified 05/04/23 08:30 Review of Systems ROS Statement: Those systems with pertinent positive or pertinent negative responses have been documented in the HPI. ROS Other: All systems not noted in ROS Statement are negative. Past Medical History Past Medical History: No Reported History Additional Past Medical History / Comment(s): celllitis History of Any Multi-Drug Resistant Organisms: None Reported Past Surgical History: No Surgical Hx Reported Past Anesthesia/Blood Transfusion Reactions: No Reported Reaction Past Psychological History: No Psychological Hx Reported Smoking Status: Light tobacco smoker Past Alcohol Use History: Occasional Past Drug Use History: None Reported General Exam - General Exam Comments Initial Comments: GENERAL: Patient is well-developed and well-nourished. Patient is nontoxic and well- hydrated and is in mild distress. ENT: Neck is soft and supple. No significant lymphadenopathy is noted. Oropharynx is clear. Moist mucous membranes. Neck has full range of motion without e liciting any pain. EYES: The sclera were anicteric and conjunctiva were pink and moist. Extraocular movements were intact and pupils were equal round and reactive to light. Eyelids were unremarkable. PULMONARY: Unlabored respirations. Good breath sounds bilaterally. No audible rales rhonchi or wheezing was noted. CARDIOVASCULAR: There is a regular rate and rhythm without any murmurs gallops or rubs. ABDOMEN: Soft and nontender with normal bowel sounds. SKIN: Skin is clear with no lesions or rashes and otherwise unremarkable. NEUROLOGIC: Patient is alert and oriented x3. Cranial nerves II through XII are grossly intact. Motor and sensory are also intact. Normal speech, volume and content. Symmetrical smile. MUSCULOSKELETAL: Normal extremities with adequate strength and full range of motion. Left lower leg is red almost to the knee from the ankle. Patient has also a paronychia of the left first toe. LYMPHATICS: No significant lymphadenopathy is noted PSYCHIATRIC: Normal psychiatric evaluation. Limitations: no limitations Course Vital Signs 05/04/23 05/04/23 08:28 10:01 Temperature 100.1 F H 100.5 F H Pulse Rate 142 H 121 H Respiratory 18 20 Rate Blood Pressure 150/69 123/70 O2 Sat by Pulse 98 95 Oximetry Medical Decision Making - Medical Decision Making EKG is interpreted by myself but EKG shows a sinus tachycardia 130 bpm VT of 172 QRS is 99 QT interval 303 QTc is 380. Patient's EKG shows no ST segment elevation or depression. Was pt. sent in by a medical professional or institution (, PA, AGENT BROKER, urgent care, hospital, or longterm...) When possible be specific @ -No Did you speak to anyone other than the patient for history (EMS, parent, family, police, friend...)? What history was obtained from this source @ -No Did you review nursing and triage notes (agree or disagree)? Why? @ -I reviewed and agree with nursing and triage notes Were old charts reviewed (outside hosp., previous admission, EMS record, old EKG, old radiological studies, urgent care reports/EKG's, longterm records)? Report findings @ -I reviewed prior charts and prior lab work on this patient Differential Diagnosis (chest pain, altered mental status, abdominal pain women, abdominal pain men, vaginal bleeding, weakness, fever, dyspnea, syncope, headache, dizziness, GI bleed, back pain, seizure, CVA, palpatations, mental health, musculoskeletal)? @ -Differential Fever: Pneumonia, viral URI, endocarditis, myocarditis, pericarditis, otitis, sinusitis, peritonsillar Abscess, retropharyngeal Abscess, epiglottitis, peritonitis, appendicitis, Pattie cystitis, diverticulitis, hepatitis, colitis, UTI, PID, TOA, pyelonephritis, prostatitis, epididymitis, meningitis, encephalitis, pulmonary embolism, CVA, thyroid storm, pancreatitis, adrenal crisis, cavernous sinus thrombosis, this is not meant to be an all-inclusive list. EKG interpreted by me (3pts min.). @ -As above X-rays interpreted by me (1pt min.). @ -X-ray of the leg shows no free air or signs of osteomyelitis CT interpreted by me (1pt min.). @ -None done U/S interpreted by me (1pt. min.). @ -None done What testing was considered but not performed or refused? (CT, X-rays, U/S, labs)? Why? @ -None What meds were considered but not given or refused? Why? @ -None Did you discuss the management of the patient with other professionals (professionals i.e. , PA, AGENT BROKER, lab, RT, psych nurse, secondary social studies teacher, vice president risk management, teacher, district resource officer, senior case manager)? Give summary @ -I spoke with [facility] they agreed admit the patient admit the patient wrote admitting orders Was smoking cessation discussed for >3mins.? @ -No Was critical care preformed (if so, how long)? @ -No Were there social determinants of health that impacted care today? How? (Homelessness, low income, unemployed, alcoholism, drug addiction, transportation, low edu. Level, literacy, decrease access to med. care, [facility], rehab)? @ -No Was there de-escalation of care discussed even if they declined (Discuss DNR or withdrawal of care, Hospice)? DNR status @ -No What co-morbidities impacted this encounter? (DM, HTN, Smoking, COPD, CAD, Cancer, CVA, ARF, Chemo, Hep., AIDS, mental health diagnosis, sleep apnea, morbid obesity)? @ -None Was patient admitted / discharged? Hospital course, mention meds given and route, prescriptions, significant lab abnormalities, going to OR and other pertinent info. @ -Patient received vancomycin and Zosyn for the infected leg. Patient will be admitted to [facility] I will consult infectious disease Undiagnosed new problem with uncertain prognosis? @ -No Drug Therapy requiring intensive monitoring for toxicity (Heparin, Nitro, Insulin, Cardizem)? @ -No Were any procedures done? @ -No Diagnosis/symptom? @ -Cellulitis leg Acute, or Chronic, or Acute on Chronic? @ -Acute Uncomplicated (without systemic symptoms) or Complicated (systemic symptoms)? @ -Complicated Side effects of treatment? @ -No Exacerbation, Progression, or Severe Exacerbation? @ -No Poses a threat to life or bodily function? How? (Chest pain, USA, OR, pneumonia, PE, COPD, DKA, ARF, appy, cholecystitis, CVA, Diverticulitis, Homicidal, Suicidal, threat to staff... and all critical care pts) @ -Yes this can lead to sepsis and end organ dysfunction - Lab Data Result diagrams: 05/04/23 08:49 05/04/23 08:49 Lab Results 05/04/23 05/04/23 05/04/23 Range/Units 08:49 08:49 08:49 WBC 27.5 H (3.8-10.6) k/uL RBC 4.71 (4.30-5.90) m/uL Hgb 13.9 (13.0-17.5) gm/dL Hct 42.1 (39.0-53.0) % MCV 89.3 (80.0-100.0) fL MCH 29.5 (25.0-35.0) pg MCHC 33.0 (31.0-37.0) g/dL RDW 13.8 (11.5-15.5) % Plt Count 290 (150-450) k/uL MPV 8.7 PT 13.0 H (10.0-12.5) sec INR 1.2 H (<1.2) APTT 32.2 H (22.0-30.0) sec Sodium 136 L (137-145) mmol/L Potassium 3.9 (3.5-5.1) mmol/L Chloride 102 (98-107) mmol/L Carbon Dioxide 20 L (22-30) mmol/L Anion Gap 14 mmol/L BUN 12 (9-20) mg/dL Creatinine 0.93 (0.66-1.25) mg/dL Est GFR (CKD-EPI)AfAm >90 (>60 ml/min/1.73 sqM) Est GFR (CKD-EPI)NonAf >90 (>60 ml/min/1.73 sqM) Glucose 109 H (74-99) mg/dL Plasma Lactic Acid Nick (0.7-2.0) mmol/L Calcium 9.3 (8.4-10.2) mg/dL Total Bilirubin 1.0 (0.2-1.3) mg/dL AST 33 (17-59) U/L ALT 32 (4-49) U/L Alkaline Phosphatase 69 (38-126) U/L Total Protein 7.7 (6.3-8.2) g/dL Albumin 4.3 (3.5-5.0) g/dL 05/04/23 Range/Units 08:49 WBC (3.8-10.6) k/uL RBC (4.30-5.90) m/uL Hgb (13.0-17.5) gm/dL Hct (39.0-53.0) % MCV (80.0-100.0) fL MCH (25.0-35.0) pg MCHC (31.0-37.0) g/dL RDW (11.5-15.5) % Plt Count (150-450) k/uL MPV PT (10.0-12.5) sec INR (<1.2) APTT (22.0-30.0) sec Sodium (137-145) mmol/L Potassium (3.5-5.1) mmol/L Chloride (98-107) mmol/L Carbon Dioxide (22-30) mmol/L Anion Gap mmol/L BUN (9-20) mg/dL Creatinine (0.66-1.25) mg/dL Est GFR (CKD-EPI)AfAm (>60 ml/min/1.73 sqM) Est GFR (CKD-EPI)NonAf (>60 ml/min/1.73 sqM) Glucose (74-99) mg/dL Plasma Lactic Acid Nick 2.4 H* (0.7-2.0) mmol/L Calcium (8.4-10.2) mg/dL Total Bilirubin (0.2-1.3) mg/dL AST (17-59) U/L ALT (4-49) U/L Alkaline Phosphatase (38-126) U/L Total Protein (6.3-8.2) g/dL Albumin (3.5-5.0) g/dL Disposition Clinical Impression: Left leg cellulitis Disposition: ADMITTED IP TO THIS [facility] Referrals: None,Stated [Primary Care Provider] - 1-2 days Time of Disposition: 10:23
[2023-05-04] MEDS: SODIUM CHLORIDE 0.9% 500 ML 500 ML IV SCH (09:03)
[2023-05-04] MEDS: IBUPROFEN 600 MG TAB PO STA (09:04)
[2023-05-04] MEDS: PIPERACILLIN-TAZOBACTAM 3.375 GM in SODIUM CHLORIDE 0.9% 100 ML IVPB STA (09:04)
[2023-05-04] MEDS: ACETAMINOPHEN TAB 500 MG TAB PO STA (09:04)
[2023-05-04 09:19] LABS: Basophils % (A) 0 %; Eosinophils % (A) 0 %; HCT 42.1 % (39.0-53.0); HGB 13.9 gm/dL (13.0-17.5); Lymphocytes # (A) 0.9 k/uL (1.0-4.8); Lymphocytes % (A) 3 %; MCH 29.5 pg (25.0-35.0); MCV 89.3 fL (80.0-100.0); Mean Platelet Volume 8.7; Monocytes # (A) 0.4 k/uL (0-1.0); Monocytes % (A) 1 %; Neutrophils # (A) 26.1 k/uL (1.3-7.7); Neutrophils % (A) 95 %; Platelet Count 290 k/uL (150-450); RBC 4.71 m/uL (4.30-5.90); RDW 13.8 % (11.5-15.5); WBC 27.5 k/uL (3.8-10.6)
[2023-05-04 09:22] LABS: INR 1.2 (<1.2); Partial Thromboplastin Time 32.2 sec (22.0-30.0)
[2023-05-04 09:25] LABS: ALT 32 U/L (4-49); AST 33 U/L (17-59); African American GFR (CKD) >90 (>60 ml/min/1.73 sqM); Albumin 4.3 g/dL (3.5-5.0); Alkaline Phosphatase 69 U/L (38-126); Anion Gap 14 mmol/L; Blood Urea Nitrogen 12 mg/dL (9-20); Calcium 9.3 mg/dL (8.4-10.2); Carbon Dioxide 20 mmol/L (22-30); Chloride 102 mmol/L (98-107); Glucose 109 mg/dL (74-99); Non-African American GFR(CKD) >90 (>60 ml/min/1.73 sqM); Potassium 3.9 mmol/L (3.5-5.1); Sodium 136 mmol/L (137-145); Total Protein 7.7 g/dL (6.3-8.2)
--- NOTE | 2023-05-04 09:28 | XR ---
EXAMINATION TYPE: XR tibia fibula LT DATE OF EXAM: 05/04/2023 9:19 AM CLINICAL INDICATION:Male, 27 years old with history of Infection; [facility] COMPARISON: X-rays performed 05/10/2022 TECHNIQUE: XR tibia fibula LT; tibia/fibula was examined in AP and lateral projections. FINDINGS: Osseous mineralization appears appropriate. No lytic/blastic lesion or destructive bony process. No p eriostitis. No significant degenerative changes of the ankle or knee suggested. There are small dorsa l and tiny plantar calcaneal spurs. Soft tissues are generally prominent, may be from body habitus with superimposed edema probable. No f ocal soft tissue abnormality can be seen. No radiopaque foreign body. IMPRESSION: No acute radiographic abnormality.
[2023-05-04] MEDS: VANCOMYCIN 2,500 MG in SODIUM CHLORIDE 0.9% 500 ML 500 ML IVPB STA (09:57)
[2023-05-04 11:12] LABS: RBC Morphology Normal
[2023-05-04] MEDS ORDERED: MELATONIN 3 MG TABLET PO PRN (11:17)
[2023-05-04] MEDS ORDERED: NALOXONE 0.4 MG/ML 1 ML VIAL IV PRN (11:17)
[2023-05-04] MEDS ORDERED: ONDANSETRON 4 MG/2 ML VIAL IVP PRN (11:17)
[2023-05-04] MEDS: SODIUM CHLORIDE 0.9% 2,000 ML IV ONE (12:37)
[2023-05-04] MEDS: SODIUM CHLORIDE 0.9% 1,000 ML IV ONE (12:50)
--- NOTE | 2023-05-04 13:04 | P.HPIM ---
History of Present Illness H&P Date: 05/04/23 Chief Complaint: Skin infection * 27-year-old gentleman with past medical history significant for skin rash, history of drug reaction, hypertension, morbid obesity, presents to the emergency department with complaints of cellulitis of left lower extremity. Patient was admitted last year with similar presentation and was seen by rheumatology and infectious disease. Patient said there was concern for infection where he cut his toenail. Patient did complain of fever and leg pain * Workup obtained in ER included x-ray which was negative for acute abnormality * Blood work obtained in ER include CBC which showed WBC count of 27.5 hemoglobin 13.9 platelet count of 290 INR of 1.2 * Serum chemistry obtained showed sodium 136 potassium 3.9 chloride 102 carbon dioxide 20 BUN 12 creatinine 0.93 lactate of 2.4 liver profile within normal limit * While in ER patient was given fluid bolus with follow-up lactate levels ordered * Patient was started on broad-spectrum antibiotic with consultation from infectious disease REVIEW OF SYSTEMS: Left leg pain, erythema CONSTITUTIONAL: No fever, no malaise, no fatigue. HEENT: No recent visual problems or hearing problems. Denied any sore throat. CARDIOVASCULAR: No chest pain, orthopnea, PND, no palpitations, no syncope. PULMONARY: No shortness of breath, no cough, no hemoptysis. GASTROINTESTINAL: No diarrhea, no nausea, no vomiting, no abdominal pain. NEUROLOGICAL: No headaches, no weakness, no numbness. HEMATOLOGICAL: Denies any bleeding or petechiae. GENITOURINARY: Denies any burning micturition, frequency, or urgency. MUSCULOSKELETAL/RHEUMATOLOGICAL:Left leg pain, erythema ENDOCRINE: Denies any polyuria or polydipsia. PHYSICAL EXAMINATION: GENERAL: The patient is alert and oriented x3, morbid obesity, ill appearance HEENT: Pupils are round and equally reacting to light. EOMI. CARDIOVASCULAR: S1 and S2 present. Tachycardia. PULMONARY: Chest is clear to auscultation, no wheezing or crackles. ABDOMEN: Soft, nontender, nondistended, normoactive bowel sounds. No palpable organomegaly. MUSCULOSKELETAL: No joint swelling or deformity. EXTREMITIES: No cyanosis, clubbing, or pedal edema. NEUROLOGICAL: Gross neurological examination did not reveal any focal deficits. SKIN: Edema left lower extremity , erythema mid calf Assessment and plan * Sepsis secondary to left lower extremity cellulitis * Left lower extremity cellulitis * Morbid obesity * History of hypertension * In regards to cellulitis left lower extremity, x-ray negative for gas, continue IV antibiotic Zosyn and vancomycin, infectious disease consulted * In regards to sepsis continue patient on broad-spectrum antibiotics blood cultures collected continue with fluid resuscitation follow-up lactate levels ordered * In regards to history of hypertension Home medications to be reviewed and reconciled * Status is full code Past Medical History Past Medical History: No Reported History Additional Past Medical History / Comment(s): celllitis History of Any Multi-Drug Resistant Organisms: None Reported Past Surgical History: No Surgical Hx Reported Past Anesthesia/Blood Transfusion Reactions: No Reported Reaction Past Psychological History: No Psychological Hx Reported Smoking Status: Light tobacco smoker Past Alcohol Use History: Occasional Past Drug Use History: None Reported Medications and Allergies Home Medications Medication Instructions Recorded Confirmed Type No Known Home Medications 05/04/23 05/04/23 History Allergies Allergy/AdvReac Type Severity Reaction Status Date / Time cephalexin [From Keflex] Allergy Rash/Hives Verified 05/04/23 11:58 Physical Exam Vitals: Vital Signs Temp Pulse Resp BP Pulse Ox 05/04/23 10:01 100.5 F H 121 H 20 123/70 95 05/04/23 08:28 100.1 F H 142 H 18 150/69 98 Intake and Output 05/03/23 05/04/23 05/04/23 22:59 06:59 14:59 Other: Weight 249.476 kg Results CBC & Chem 7: 05/04/23 08:49 05/04/23 08:49 Labs: Abnormal Lab Results - Last 24 Hours (Table) 05/04/23 05/04/23 05/04/23 Range/Units 08:49 08:49 08:49 WBC 27.5 H (3.8-10.6) k/uL Neutrophils # 26.1 H (1.3-7.7) k/uL Lymphocytes # 0.9 L (1.0-4.8) k/uL PT 13.0 H (10.0-12.5) sec INR 1.2 H (<1.2) APTT 32.2 H (22.0-30.0) sec Sodium 136 L (137-145) mmol/L Carbon Dioxide 20 L (22-30) mmol/L Glucose 109 H (74-99) mg/dL Plasma Lactic Acid Nick (0.7-2.0) mmol/L 05/03/ Range/Units 08:49 WBC (3.8-10.6) k/uL Neutrophils # (1.3-7.7) k/uL Lymphocytes # (1.0-4.8) k/uL PT (10.0-12.5) sec INR (<1.2) APTT (22.0-30.0) sec Sodium (137-145) mmol/L Carbon Dioxide (22-30) mmol/L Glucose (74-99) mg/dL Plasma Lactic Acid Nick 2.4 H* (0.7-2.0) mmol/L Assessment and Plan Time with Patient: Greater than 30
[2023-05-04] MEDS: PANTOPRAZOLE 40 MG/10 ML VIAL IV SCH (14:00)
[2023-05-04] MEDS: PIPERACILLIN-TAZOBACTAM 3.375 GM in SODIUM CHLORIDE 0.9% 100 ML IVPB SCH (16:29)
[2023-05-04] MEDS: SODIUM CHLORIDE 0.9% 1,000 ML IV SCH (16:33)
[2023-05-04] MEDS: HEPARIN SODIUM,PORCINE 5,000 UNIT/ML 1 ML VIAL SQ SCH (16:33)
[2023-05-04] MEDS ORDERED: VANCOMYCIN 2,500 MG in SODIUM CHLORIDE 0.9% 500 ML 500 ML IVPB SCH (18:00)
[2023-05-04] MEDS: AMPICILLIN-SULBACTAM 3 GM in SODIUM CHLORIDE 0.9% 100 ML IVPB SCH (21:30)
--- NOTE | 2023-05-04 23:02 | P.CONS ---
History of Present Illness - Reason for Consult Consult date: 05/04/23 Cellulitis leg Requesting physician: Josue Moralez - Chief Complaint Increasing swelling and redness of left leg x few days - History of Present Illness Patient is a 27-year-old male with a past medical history significant for left lower extremity cellulitis, presenting to the hospital for evaluation of increasing swelling and redness to the left lower extremity swelling and redness patient symptoms started the day before presentation to the hospital and started with increasing fever and chills noticed to having swelling and redness to the left leg that has progressed over quickly patient complaining of pain to the left lower extremity specially when he walks on it or where any weight intensity about 2 out of 10 and no radiation did have extensive swelling and redness to the left leg no open wound or any drainage on presentation to the hospital patient did have a fever of 100.5 F patient was tachycardic but not hypotensive or hypoxic he did have white count 27.5 creatinine 0.93 lactic acid was 2.4 liver isms are normal patient did have x-ray of the tibia-fibula was negative for acute fracture patient was started on vancomycin and Zosyn infec tious disease was consulted for further management of antibiotic therapy Review of Systems Positive point and negatives has been mentioned in the HPI, complete review of systems was performed and all other systems are negative Past Medical History Past Medical History: No Reported History Additional Past Medical History / Comment(s): celllitis History of Any Multi-Drug Resistant Organisms: None Reported Past Surgical History: No Surgical Hx Reported Past Anesthesia/Blood Transfusion Reactions: No Reported Reaction Past Psychological History: No Psychological Hx Reported Smoking Status: Light tobacco smoker Past Alcohol Use History: Occasional Past Drug Use History: None Reported Medications and Allergies Home Medications Medication Instructions Recorded Confirmed Type Amoxicillin/Potassium Clav 2 tab PO Q12H 10 Days #40 tab 05/07/23 Rx [Augmentin Xr 1,000-62.5 Tab] Metoprolol Tartrate [Lopressor] 25 mg PO BID 30 Days #60 tab 05/07/23 Rx Allergies Allergy/AdvReac Type Severity Reaction Status Date / Time cephalexin [From Keflex] Allergy Rash/Hives Verified 05/04/23 11:58 Physical Exam Vitals: Vital Signs Temp Pulse Resp BP Pulse Ox 05/04/23 15:05 108 H 18 134/87 97 05/04/23 13:38 99.1 F 05/04/23 12:00 106 H 20 123/70 96 05/04/23 10:01 100.5 F H 121 H 20 123/70 95 05/04/23 08:28 100.1 F H 142 H 18 150/69 98 Intake and Output 05/04/23 05/04/23 05/04/23 06:59 14:59 22:59 Other: Weight 249.476 kg GENERAL DESCRIPTION: Young male lying in bed, no distress. No tachypnea or accessory muscle of respiration use. HEENT: Shows Pallor , no scleral icterus. Oral mucous membrane is dry. No pharyngeal erythema or thrush NECK: Trachea central, no thyromegaly. LUNGS: Unlabored breathing. Clear to auscultation anteriorly. No wheeze or crackle. HEART: S1, S2, regular rate and rhythm. No loud murmur ABDOMEN: Soft, no tenderness , guarding or rigidity, no organomegaly EXTREMITIES: Extensive swelling redness to the left lower extremity which is warm and tender to touch SKIN: No rash, no masses palpable. NEUROLOGICAL: The patient is awake, alert, oriented x3, mood and affect normal. Results CBC & Chem 7: 05/06/23 08:01 05/06/23 08:01 Labs: Abnormal Lab Results - Last 24 Hours (Table) 05/04/23 05/04/23 05/04/23 Range/Units 08:49 08:49 08:49 WBC 27.5 H (3.8-10.6) k/uL Neutrophils # 26.1 H (1.3-7.7) k/uL Lymphocytes # 0.9 L (1.0-4.8) k/uL PT 13.0 H (10.0-12.5) sec INR 1.2 H (<1.2) APTT 32.2 H (22.0-30.0) sec Sodium 136 L (137-145) mmol/L Carbon Dioxide 20 L (22-30) mmol/L Glucose 109 H (74-99) mg/dL Plasma Lactic Acid Nick (0.7-2.0) mmol/L 05/04/23 Range/Units 08:49 WBC (3.8-10.6) k/uL Neutrophils # (1.3-7.7) k/uL Lymphocytes # (1.0-4.8) k/uL PT (10.0-12.5) sec INR (<1.2) APTT (22.0-30.0) sec Sodium (137-145) mmol/L Carbon Dioxide (22-30) mmol/L Glucose (74-99) mg/dL Plasma Lactic Acid Nick 2.4 H* (0.7-2.0) mmol/L Assessment and Plan (1) Allergy to cephalosporin Current Visit: Yes Status: Acute Code(s): Z88.1 - ALLERGY STATUS TO OTHER ANTIBIOTIC AGENTS SNOMED Code(s): 809029579 (2) Left leg cellulitis Current Visit: Yes Status: Acute Code(s): L03.116 - CELLULITIS OF LEFT LOWER LIMB SNOMED Code(s): 30324369329755364 (3) Sepsis Current Visit: No Status: Acute Code(s): A41.9 - SEPSIS, UNSPECIFIED OR GANISM SNOMED Code(s): 68563624 Plan: 1patient presented to the hospital with sepsis in this patient who did have a fever elevated white count source is acute left lower extremity cellulitis in this patient who did have diffuse swelling redness likely streptococcal disease clinically not behaving as a gram-negative or MRSA infection 2patient with a cephalexin allergy with a rash that will be a number of antibiotics safe to use 3-we will discontinue vancomycin and Zosyn to decrease risk of nephrotoxicity with this combination 4-start the patient on Unasyn 3 g every 6 hours 5-marked area of the redness and apply Gopi wrap from just above the toe to below the knee to keep some of the swelling down We will follow on clinical condition and cultures to further adjust medication if needed Thank you for this consultation we will follow the patient along with you Dictation was produced using [employer] dictation software. please excuse any grammatical, word or spelling errors. Time with Patient: Greater than 30
[2023-05-05] MEDS: ACETAMINOPHEN TAB 325 MG TAB PO PRN (06:17)
[2023-05-05 10:14] LABS: African American GFR (CKD) >90 (>60 ml/min/1.73 sqM); Anion Gap 11 mmol/L; Blood Urea Nitrogen 9 mg/dL (9-20); Calcium 8.6 mg/dL (8.4-10.2); Carbon Dioxide 18 mmol/L (22-30); Chloride 106 mmol/L (98-107); Glucose 91 mg/dL (74-99); Non-African American GFR(CKD) >90 (>60 ml/min/1.73 sqM); Potassium 3.5 mmol/L (3.5-5.1); Sodium 135 mmol/L (137-145)
[2023-05-05 10:37] LABS: Basophils % (A) 0 %; Eosinophils % (A) 0 %; HCT 36.9 % (39.0-53.0); Lymphocytes # (A) 1.2 k/uL (1.0-4.8); Lymphocytes % (A) 9 %; MCH 29.8 pg (25.0-35.0); MCHC 32.5 g/dL (31.0-37.0); MCV 91.8 fL (80.0-100.0); Mean Platelet Volume 8.9; Monocytes # (A) 0.6 k/uL (0-1.0); Monocytes % (A) 4 %; Neutrophils # (A) 11.5 k/uL (1.3-7.7); Neutrophils % (A) 86 %; Platelet Count 213 k/uL (150-450); RBC 4.02 m/uL (4.30-5.90); RDW 13.5 % (11.5-15.5); WBC 13.4 k/uL (3.8-10.6)
--- NOTE | 2023-05-05 11:58 | P.PN ---
Subjective Progress Note Date: 05/05/23 * 27-year-old gentleman with past medical history significant for skin rash, history of drug reaction, hypertension, morbid obesity, presents to the emergency department with complaints of cellulitis of left lower extremity. Patient was admitted last year with similar presentation and was seen by rheumatology and infectious disease. Patient said there was concern for infection where he cut his toenail. Patient did complain of fever and leg pain * Workup obtained in ER included x-ray which was negative for acute abnormality * Blood work obtained in ER include CBC which showed WBC count of 27.5 hemogl obin 13.9 platelet count of 290 INR of 1.2 * Serum chemistry obtained showed sodium 136 potassium 3.9 chloride 102 carbon dioxide 20 BUN 12 creatinine 0.93 lactate of 2.4 liver profile within normal limit * While in ER patient was given fluid bolus with follow-up lactate levels ordered * Patient was started on broad-spectrum antibiotic with consultation from infectious disease * 05/05/23: Patient seen and evaluated in the emergency department, left lower extremity erythema has improved antibiotic adjusted to Unasyn, patient denies palpitation, patient states he is feeling better REVIEW OF SYSTEMS: Left leg pain, erythema improved CONSTITUTIONAL: No fever, no malaise, no fatigue. HEENT: No recent visual problems or hearing problems. Denied any sore throat. CARDIOVASCULAR: No chest pain, orthopnea, PND, no palpitations, no syncope. PULMONARY: No shortness of breath, no cough, no hemoptysis. GASTROINTESTINAL: No diarrhea, no nausea, no vomiting, no abdominal pain. NEUROLOGICAL: No headaches, no weakness, no numbness. HEMATOLOGICAL: Denies any bleeding or petechiae. GENITOURINARY: Denies any burning micturition, frequency, or urgency. MUSCULOSKELETAL/RHEUMATOLOGICAL:Left leg pain, erythema improved ENDOCRINE: Denies any polyuria or polydipsia. PHYSICAL EXAMINATION: GENERAL: The patient is alert and oriented x3, morbid obesity, ill appearance HEENT: Pupils are round and equally reacting to light. EOMI. CARDIOVASCULAR: S1 and S2 present. Tachycardia. PULMONARY: Chest is clear to auscultation, no wheezing or crackles. ABDOMEN: Soft, nontender, nondistended, normoactive bowel sounds. No palpable organomegaly. MUSCULOSKELETAL: No joint swelling or deformity. EXTREMITIES: No cyanosis, clubbing, or pedal edema. NEUROLOGICAL: Gross neurological examination did not reveal any focal deficits. SKIN: Edema left lower extremity , erythema mid calf improved Assessment and plan * Sepsis secondary to left lower extremity cellulitis * Left lower extremity cellulitis * Morbid obesity * History of hypertension * In regards to cellulitis left lower extremity, x-ray negative for gas, patient was on Zosyn and vancomycin transition to IV Unasyn, infectious disease consulted * In regards to sepsis continue patient on current antibiotics, follow-up on blood cultures follow-up lactate levels within normal limits * In regards to history of hypertension, continue patient on metoprolol 25 mg twice daily started during this hospital stay Objective - Vital Signs Vital signs: Vital Signs Temp 98.9 F 05/05/23 08:34 Pulse 105 H 05/05/23 08:34 Resp 18 05/05/23 08:34 BP 149/74 05/05/23 08:34 Pulse Ox 97 05/05/23 08:34 FiO2 Intake & Output 05/04/23 05/05/23 05/05/23 18:59 06:59 18:59 Weight 249.476 kg - Labs CBC & Chem 7: 05/05/23 09:10 05/05/23 09:10 Labs: Abnormal Lab Results - Last 24 Hours (Table) 05/04/23 05/04/23 Range/Units 08:49 08:49 Neutrophils # 26.1 H (1.3-7.7) k/uL Lymphocytes # 0.9 L (1.0-4.8) k/uL Plasma Lactic Acid Nick 2.4 H* (0.7-2.0) mmol/L
[2023-05-05] MEDS: METOPROLOL TARTRATE 25 MG TAB PO SCH (13:24)
[2023-05-05] MEDS: AMPICILLIN-SULBACTAM 3 GM in SODIUM CHLORIDE 0.9% 100 ML IVPB SCH (15:24)
--- NOTE | 2023-05-05 15:38 | P.PN ---
Subjective Progress Note Date: 05/05/23 Principal diagnosis: Reason for follow-up is sepsis and left lower extremity cellulitis Patient is a 27-year-old male with a past medical history significant for left lower extremity cellulitis, presenting to the hospital for evaluation of increasing swelling and redness to the left lower extremity, patient be diagnosed with sepsis secondary to extensive cellulitis to left lower extremity patient did have cephalexin allergy. On today's visit that is 05/05/2023,the patient did have a low-grade fever 100.9 earlier this morning the patient is afebrile since then patient is on room air not requiring supplemental oxygen and denies any shortness of breath no chest p ain or cough.Patient denies having any nausea or vomiting, no abdominal pain and no diarrhea has been reported, left lower extremity pain and redness slightly decreased. Patient white count is down to 13.4, creatinine 0.85 cultures pending Objective - Vital Signs Vital signs: Vital Signs Temp 98.9 F 05/05/23 08:34 Pulse 107 H 05/05/23 13:25 Resp 20 05/05/23 13:25 BP 153/72 05/05/23 13:25 Pulse Ox 99 05/05/23 13:25 FiO2 Intake & Output 05/04/23 05/05/23 05/05/23 18:59 06:59 18:59 Weight 249.476 kg - Exam GENERAL DESCRIPTION: Middle-age male lying in bed in no distress RESPIRATORY SYSTEM: Unlabored breathing , decreased breath sounds at bases HEART: S1 S2 regular rate and rhythm , ABDOMEN: Soft , no tenderness EXTREMITIES: Left lower extremity swelling redness slightly decreased - Labs CBC & Chem 7: 05/05/23 09:10 05/05/23 09:10 Labs: Abnormal Lab Results - Last 24 Hours (Table) 05/05/23 05/05/23 Range/Units 09:10 09:10 WBC 13.4 H (3.8-10.6) k/uL RBC 4.02 L (4.30-5.90) m/uL Hgb 12.0 L (13.0-17.5) gm/dL Hct 36.9 L (39.0-53.0) % Neutrophils # 11.5 H (1.3-7.7) k/uL Sodium 135 L (137-145) mmol/L Carbon Dioxide 18 L (22-30) mmol/L Assessment and Plan (1) Leukocytosis Current Visit: Yes Status: Acute Code(s): D72.829 - ELEVATED WHITE BLOOD CELL COUNT, UNSPECIFIED SNOMED Code(s): 602758495 (2) Allergy to cephalosporin Current Visit: Yes Status: Acute Code(s): Z88.1 - ALLERGY STATUS TO OTHER ANTIBIOTIC AGENTS SNOMED Code(s): 933654248 (3) Left leg cellulitis Current Visit: Yes Status: Acute Code(s): L03.116 - CELLULITIS OF LEFT LOWER LIMB SNOMED Code(s): 13930818509711429 Plan: 1patient was in the hospital with sepsis in this patient who did have a fever elevated white count source is acute left lower extremity cellulitis in this patient who did have diffuse swelling redness likely streptococcal disease clinically not behaving as a gram-negative or MRSA infection 2patient with a cephalexin allergy with a rash that will be a number of antibiotics safe to use 3-patient to continue with Unasyn 3 g every 6 hours and apply Gopi wrap from just above the toe to below the knee to keep some of the swelling down Dictation was produced using [employer] dictation software. please excuse any grammatical, word or spelling errors. Time with Patient: Less than 30
[2023-05-05] MEDS: traMADol 50 MG TAB PO PRN (20:10)
[2023-05-06] MEDS ORDERED: VANCOMYCIN TROUGH DUE 1 EACH MISC MISCELLANE ONE (01:00)
[2023-05-06 09:15] LABS: HCT 35.1 % (39.0-53.0); HGB 10.8 gm/dL (13.0-17.5); MCH 28.5 pg (25.0-35.0); MCHC 30.8 g/dL (31.0-37.0); MCV 92.6 fL (80.0-100.0); Platelet Count 208 k/uL (150-450); RBC 3.79 m/uL (4.30-5.90); WBC 8.3 k/uL (3.8-10.6)
[2023-05-06 11:10] LABS: African American GFR (CKD) >90 (>60 ml/min/1.73 sqM); Anion Gap 8 mmol/L; Blood Urea Nitrogen 7 mg/dL (9-20); Calcium 8.2 mg/dL (8.4-10.2); Carbon Dioxide 24 mmol/L (22-30); Chloride 107 mmol/L (98-107); Glucose 91 mg/dL (74-99); Non-African American GFR(CKD) >90 (>60 ml/min/1.73 sqM); Potassium 3.7 mmol/L (3.5-5.1); Sodium 139 mmol/L (137-145)
--- NOTE | 2023-05-06 12:20 | P.PN ---
Subjective Progress Note Date: 05/06/23 * 27-year-old gentleman with past medical history significant for skin rash, history of drug reaction, hypertension, morbid obesity, presents to the emergency department with complaints of cellulitis of left lower extremity. Patient was admitted last year with similar presentation and was seen by rheumatology and infectious disease. Patient said there was concern for infection where he cut his toenail. Patient did complain of fever and leg pain * Workup obtained in ER included x-ray which was negative for acute abnormality * Blood work obtained in ER include CBC which showed WBC count of 27.5 hemogl obin 13.9 platelet count of 290 INR of 1.2 * Serum chemistry obtained showed sodium 136 potassium 3.9 chloride 102 carbon dioxide 20 BUN 12 creatinine 0.93 lactate of 2.4 liver profile within normal limit * While in ER patient was given fluid bolus with follow-up lactate levels ordered * Patient was started on broad-spectrum antibiotic with consultation from infectious disease * 05/05/23: Patient seen and evaluated in the emergency department, left lower extremity erythema has improved antibiotic adjusted to Unasyn, patient denies palpitation, patient states he is feeling better * 05/06/2023: Patient seen and evaluated bedside, left lower extremity erythema improved, CRP elevated, continue IV antibiotics, Gopi wrap lower extremity noted REVIEW OF SYSTEMS: Left leg pain, erythema improved CONSTITUTIONAL: No fever, no malaise, no fatigue. HEENT: No recent visual problems or hearing problems. Denied any sore throat. CARDIOVASCULAR: No chest pain, orthopnea, PND, no palpitations, no syncope. PULMONARY: No shortness of breath, no cough, no hemoptysis. GASTROINTESTINAL: No diarrhea, no nausea, no vomiting, no abdominal pain. NEUROLOGICAL: No headaches, no weakness, no numbness. HEMATOLOGICAL: Denies any bleeding or petechiae. GENITOURINARY: Denies any burning micturition, frequency, or urgency. MUSCULOSKELETAL/RHEUMATOLOGICAL:Left leg pain, erythema improved ENDOCRINE: Denies any polyuria or polydipsia. PHYSICAL EXAMINATION: GENERAL: The patient is alert and oriented x3, morbid obesity, ill appearance HEENT: Pupils are round and equally reacting to light. EOMI. CARDIOVASCULAR: S1 and S2 present. Tachycardia. PULMONARY: Chest is clear to auscultation, no wheezing or crackles. ABDOMEN: Soft, nontender, nondistended, normoactive bowel sounds. No palpable organomegaly. MUSCULOSKELETAL: No joint swelling or deformity. EXTREMITIES: No cyanosis, clubbing, or pedal edema. NEUROLOGICAL: Gross neurological examination did not reveal any focal deficits. SKIN: Edema left lower extremity , erythema mid calf improved Assessment and plan * Sepsis secondary to left lower extremity cellulitis * Left lower extremity cellulitis * Morbid obesity * History of hypertension * In regards to cellulitis left lower extremity, x-ray negative for gas, patient was on Zosyn and vancomycin transition to IV Unasyn day 3, infectious disease consulted, continue Gopi wrap * In regards to sepsis continue patient on current antibiotics, follow-up on blood cultures follow-up lactate levels within normal limits * In regards to history of hypertension, continue patient on metoprolol 25 mg twice daily started during this hospital stay * Potential discharge home in the next 24 hours Objective - Vital Signs Vital signs: Vital Signs Temp 98.4 F 05/06/23 07:54 Pulse 95 05/06/23 07:54 Resp 17 05/06/23 07:54 BP 130/83 05/06/23 07:54 Pulse Ox 97 05/06/23 07:58 FiO2 Intake & Output 05/05/23 05/06/23 05/06/23 18:59 06:59 18:59 Intake Total 240 Balance 240 Weight 249.476 kg Intake: Oral 240 Other: Voiding Method Toilet Toilet # Voids 0 0 - Labs CBC & Chem 7: 05/06/23 08:01 05/06/23 08:01 Labs: Abnormal Lab Results - Last 24 Hours (Table) 05/05/23 05/05/23 05/06/23 Range/Units 09:10 09:10 08:01 WBC 13.4 H (3.8-10.6) k/uL RBC 4.02 L 3.79 L (4.30-5.90) m/uL Hgb 12.0 L 10.8 L (13.0-17.5) gm/dL Hct 36.9 L 35.1 L (39.0-53.0) % MCHC 30.8 L (31.0-37.0) g/dL Neutrophils # 11.5 H (1.3-7.7) k/uL Sodium 135 L (137-145) mmol/L Carbon Dioxide 18 L (22-30) mmol/L Microbiology - Last 24 Hours (Table) 05/04/23 08:55 Blood Culture - Preliminary Blood 05/04/23 08:40 Blood Culture - Preliminary Blood
--- NOTE | 2023-05-06 17:54 | P.PN ---
Subjective Progress Note Date: 05/06/23 Principal diagnosis: Reason for follow-up is sepsis and left lower extremity cellulitis Patient is a 27-year-old male with a past medical history significant for left lower extremity cellulitis, presenting to the hospital for evaluation of increasing swelling and redness to the left lower extremity, patient be diagnosed with sepsis secondary to extensive cellulitis to left lower extremity patient did have cephalexin allergy. On today's visit that is 05/06/2023, the patient continues to be afebrile, the patient is on room air and breathing comfortably, the Pt denies having any chest pain or cough, the patient denies having any abdominal pain no vomiting or any diarrhea, pain and swelling to the left leg has decreased in intensity. Patient white count has normalized to 8.3, creatinine 0.74 blood cultures so far pending Objective - Vital Signs Vital signs: Vital Signs Temp 98.1 F 05/06/23 13:54 Pulse 85 05/06/23 13:54 Resp 18 05/06/23 13:54 BP 137/83 05/06/23 13:54 Pulse Ox 99 05/06/23 13:54 FiO2 Intake & Output 05/05/23 05/06/23 05/06/23 18:59 06:59 18:59 Intake Total 240 Balance 240 Weight 249.476 kg Intake: Oral 240 Other: Voiding Method Toilet Toilet # Voids 0 0 - Exam GENERAL DESCRIPTION: Middle-age male lying in bed in no distress RESPIRATORY SYSTEM: Unlabored breathing , decreased breath sounds at bases HEART: S1 S2 regular rate and rhythm , ABDOMEN: Soft , no tenderness EXTREMITIES: Left lower extremity is currently wrapped overall redness has decreased - Labs CBC & Chem 7: 05/06/23 08:01 05/06/23 08:01 Labs: Abnormal Lab Results - Last 24 Hours (Table) 05/06/23 05/06/23 Range/Units 08:01 08:01 RBC 3.79 L (4.30-5.90) m/uL Hgb 10.8 L (13.0-17.5) gm/dL Hct 35.1 L (39.0-53.0) % MCHC 30.8 L (31.0-37.0) g/dL BUN 7 L (9-20) mg/dL Calcium 8.2 L (8.4-10.2) mg/dL C-Reactive Protein 25.0 H (<1.0) mg/dL Microbiology - Last 24 Hours (Table) 05/04/23 08:55 Blood Culture - Preliminary Blood 05/04/23 08:40 Blood Culture - Preliminary Blood Assessment and Plan (1) Leukocytosis Current Visit: Yes Status: Acute Code(s): D72.829 - ELEVATED WHITE BLOOD CELL COUNT, UNSPECIFIED SNOMED Code(s): 563564631 (2) Allergy to cephalosporin Current Visit: Yes Status: Acute Code(s): Z88.1 - ALLERGY STATUS TO OTHER ANTIBIOTIC AGENTS SNOMED Code(s): 609661218 (3) Left leg cellulitis Current Visit: Yes Status: Acute Code(s): L03.116 - CELLULITIS OF LEFT LOWER LIMB SNOMED Code(s): 96606869311867591 Plan: 1patient was in the hospital with sepsis in this patient who did have a fever elevated white count source is acute left lower extremity cellulitis in this patient who did have diffuse swelling redness likely streptococcal disease clinically not behaving as a gram-negative or MRSA infection 2patient with a cephalexin allergy with a rash that will be a number of antibiotics safe to use 3-patient is slowly clinically proving the patient white normalized, to continue with Unasyn 3 g every 6 hours will reevaluate left lower extremity tomorrow to determine his discharge antibiotics Dictation was produced using [employer] dictation software. please excuse any grammatical, word or spelling errors. Time with Patient: Less than 30
--- NOTE | 2023-05-07 13:00 | P.DS ---
Providers Date of admission: 05/04/23 10:25 Expected date of discharge: 05/07/23 Attending physician: Ervin Jimenez MD Consults: 05/04/23 10:24 Consult Physician Urgent Consulting Provider: Asia Pizarro Consult Reason/Comments: Cellulitis leg Do you want consulting provider notified?: Yes Primary care physician: Stated None Hospital Course: * 27-year-old gentleman with past medical history significant for skin rash, history of drug reaction, hypertension, morbid obesity, presents to the emergency department with complaints of cellulitis of left lower extremity. Patient was admitted last year with similar presentation and was seen by rheumatology and infectious disease. Patient said there was concern for infection where he cut his toenail. Patient did complain of fever and leg pain * Workup obtained in ER included x-ray which was negative for acute abnormality * Blood work obtained in ER include CBC which showed WBC count of 27.5 hemoglobin 13.9 platelet count of 290 INR of 1.2 * Serum chemistry obtained showed sodium 136 potassium 3.9 chloride 102 carbon dioxide 20 BUN 12 creatinine 0.93 lactate of 2.4 liver profile within normal limit * While in ER patient was given fluid bolus with follow-up lactate levels ordered * Patient was started on broad-spectrum antibiotic with consultation from infectious disease * 05/05/23: Patient seen and evaluated in the emergency department, left lower extremity erythema has improved antibiotic adjusted to Unasyn, patient denies palpitation, patient states he is feeling better * 05/06/2023: Patient seen and evaluated bedside, left lower extremity erythema improved, CRP elevated, continue IV antibiotics, Gopi wrap lower extremity noted * 05/07/23: Patient seen and evaluated bedside, patient white cell count has normalized, received IV Unasyn will be transition to oral antibiotic. Significant improvement noted patient to be discharged home. Patient transition to oral Augmentin, patient discharged home on Augmentin XR re commended by infectious disease secondary to elevated BMI. Prescription provided 2 tablets twice daily for total 10 days REVIEW OF SYSTEMS: Left leg pain, erythema improved CONSTITUTIONAL: No fever, no malaise, no fatigue. HEENT: No recent visual problems or hearing problems. Denied any sore throat. CARDIOVASCULAR: No chest pain, orthopnea, PND, no palpitations, no syncope. PULMONARY: No shortness of breath, no cough, no hemoptysis. GASTROINTESTINAL: No diarrhea, no nausea, no vomiting, no abdominal pain. NEUROLOGICAL: No headaches, no weakness, no numbness. HEMATOLOGICAL: Denies any bleeding or petechiae. GENITOURINARY: Denies any burning micturition, frequency, or urgency. MUSCULOSKELETAL/RHEUMATOLOGICAL:Left leg pain, erythema improved ENDOCRINE: Denies any polyuria or polydipsia. PHYSICAL EXAMINATION: GENERAL: The patient is alert and oriented x3, morbid obesity, ill appearance HEENT: Pupils are round and equally reacting to light. EOMI. CARDIOVASCULAR: S1 and S2 present. Tachycardia. PULMONARY: Chest is clear to auscultation, no wheezing or crackles. ABDOMEN: Soft, nontender, nondistended, normoactive bowel sounds. No palpable organomegaly. MUSCULOSKELETAL: No joint swelling or deformity. EXTREMITIES: No cyanosis, clubbing, or pedal edema. NEUROLOGICAL: Gross neurological examination did not reveal any focal deficits. SKIN: Edema left lower extremity , erythema mid calf improved Assessment and plan * Sepsis secondary to left lower extremity cellulitis * Left lower extremity cellulitis * Morbid obesity * History of hypertension * In regards to cellulitis left lower extremity, x-ray negative for gas, patient was on Zosyn and vancomycin transition to IV Unasyn day 4, infectious disease consulted, continue Gopi wrap, transition to oral antibiotic upon discharge, discharged on Augmentin XR prescription provided for 10 days with instructions to follow-up with infectious disease within 7 days * In regards to sepsis continue patient on current antibiotics, follow-up on blood cultures follow-up lactate levels within normal limits * In regards to history of hypertension, continue patient on metoprolol 25 mg twice daily started during this hospital stay, prescription provided Patient Condition at Discharge: Fair Plan - Discharge Summary Discharge Rx Participant: Yes New Discharge Prescriptions: New Metoprolol Tartrate [Lopressor] 25 mg PO BID 30 Days #60 tab Amoxicillin/Potassium Clav [Augmentin Xr 1,000-62.5 Tab] 2 tab PO Q12H 10 Days #40 tab Discharge Medication List Amoxicillin/Potassium Clav [Augmentin Xr 1,000-62.5 Tab] 2 tab PO Q12H 10 Days #40 tab 05/07/23 [Rx] Metoprolol Tartrate [Lopressor] 25 mg PO BID 30 Days #60 tab 05/07/23 [Rx] Follow up Appointment(s)/Referral(s): None,Stated [Primary Care Provider] - 1-2 days Juarez,Sajjad, MD [STAFF PHYSICIAN] - 1 Week (office not answering Please call to schedule appointment ) Discharge/Stand Alone Forms: Area PCPs Discharge Disposition: HOME SELF-CARE
[2023-05-07] MEDS: AMOXIC-POT CLAV 875-125MG 1 EACH TAB PO SCH (14:29)
--- NOTE | 2023-05-07 14:37 | P.PN ---
Subjective Progress Note Date: 05/07/23 Principal diagnosis: Reason for follow-up is sepsis and left lower extremity cellulitis Patient is a 27-year-old male with a past medical history significant for left lower extremity cellulitis, presenting to the hospital for evaluation of increasing swelling and redness to the left lower extremity, patient be diagnosed with sepsis secondary to extensive cellulitis to left lower extremity patient did have cephalexin allergy. On today's visit that is 05/07/2023, Patient is afebrile patient is currently on room air and denies having any shortness of breath, the patient denies any chest pain or cough, the patient denies any nausea vomiting did not have any abdominal pain and no diarrhea, the left lower extremity swelling redness has improved no open wound or any drainage feeling better wants to go home. Patient white normalized to 8.3, creatinine 0.74 blood culture has been negative Objective - Vital Signs Vital signs: Vital Signs Temp 98.8 F 05/07/23 13:48 Pulse 94 05/07/23 13:48 Resp 18 05/07/23 13:48 BP 145/71 05/07/23 13:48 Pulse Ox 97 05/07/23 13:48 FiO2 Intake & Output 05/06/23 05/07/23 05/07/23 18:59 06:59 18:59 Intake Total 1120 Balance 1120 Intake: Intake, IV Titration 520 Amount Sodium Chloride 0.9% 1, 520 000 ml @ 130 mls/hr IV . Q7H42M [facility] Rx#:[id number] Oral 600 Other: Voiding Method Toilet Toilet # Voids 0 2 - Exam GENERAL DESCRIPTION: Middle-age male lying in bed in no distress RESPIRATORY SYSTEM: Unlabored breathing , decreased breath sounds at bases HEART: S1 S2 regular rate and rhythm , ABDOMEN: Soft , no tenderness EXTREMITIES: Left lower extremity swelling and redness have decreased in intensity - Labs CBC & Chem 7: 05/06/23 08:01 05/06/23 08:01 Labs: Microbiology - Last 24 Hours (Table) 05/04/23 08:55 Blood Culture - Preliminary Blood 05/04/23 08:40 Blood Culture - Preliminary Blood Assessment and Plan (1) Leukocytosis Current Visit: Yes Status: Acute Code(s): D72.829 - ELEVATED WHITE BLOOD CELL COUNT, UNSPECIFIED SNOMED Code(s): 037110375 (2) Allergy to cephalosporin Current Visit: Yes Status: Acute Code(s): Z88.1 - ALLERGY STATUS TO OTHER ANTIBIOTIC AGENTS SNOMED Code(s): 684141618 (3) Left leg cellulitis Current Visit: Yes Status: Acute Code(s): L03.116 - CELLULITIS OF LEFT LOWER LIMB SNOMED Code(s): 30937906716852792 Plan: 1patient was in the hospital with sepsis in this patient who did have a fever elevated white count source is acute left lower extremity cellulitis in this patient who did have diffuse swelling redness likely streptococcal disease clinically not behaving as a gram-negative or MRSA infection 2patient with a cephalexin allergy with a rash that will be a number of anti biotics safe to use 3-patient has shown clinical improvement as far as the left lower extremity cell ulitis is concerned he will be able to finish therapy with oral Augmentin XR 2 g twice daily for 10 days and close outpatient follow-up this was discussed with admitting team working on discharge patient advised compression stocking to keep the swelling down and if any worsening swelling or redness to let me know right away Dictation was produced using [employer] dictation software. please excuse any grammatical, word or spelling errors. Time with Patient: Less than 30
[2023-05-07 14:52] VITALS: BP 145/71; PULSE 94; RESP 18; TEMP 98.8
== END 2023-05-07 14:54 | disposition home or self-care (01) | DRG 872 ==
LOC: EC 08:27 → 4SSUR 10:25
PROVIDERS: ADMIT Internal Medicine; ATTEND Internal Medicine
DX: A41.9 Sepsis, unspecified organism (principal); L03.116 Cellulitis of left lower limb; Z68.45 Body mass index [BMI] 70 or greater, adult; F17.200 Nicotine dependence, unspecified, uncomplicated; E66.01 Morbid (severe) obesity due to excess calories; I10 Essential (primary) hypertension; Z79.899 Other long term (current) drug therapy; Z88.1 Allergy status to other antibiotic agents
CPT/HCPCS: 36415; 80048; 80053; 83605; 85025; 85027; 85610; 85730; 86140; 87040; 93005; 94760; 96361; 96365; 96366; 96367; 96368; 96372; 96375; 96376; 99285

== ENCOUNTER 2023-05-12 12:12 | Emergency (ER) | payer BC ==
--- NOTE | 2023-05-12 12:52 | ED ---
Skin/Abscess/FB HPI - General Chief complaint: Skin/Abscess/Foreign Body Stated complaint: Rash Time Seen by Provider: 05/12/23 12:20 Source: patient, RN notes reviewed Mode of arrival: ambulatory Limitations: no limitations - History of Present Illness Initial comments: 27-year-old male presents emergency department chief complaint of rash. Patient states he was recent hospitalized and discharged on Augmentin. Patient states that he has now developed a rash diffusely. He states it is itchy at times. Patient denies any fevers or chills he states he has been treated for cellulitis of his left leg which is improving. Patient denies any other associated symptoms he has had reactions similar to this with Keflex. - Related Data Previous Rx's Medication Instructions Recorded Amoxicillin/Potassium Clav 2 tab PO Q12H 10 Days #40 tab 05/07/23 [Augmentin Xr 1,000-62.5 Tab] Metoprolol Tartrate [Lopressor] 25 mg PO BID 30 Days #60 tab 05/07/23 Sulfamethox-Tmp 800-160Mg [Bactrim 1 each PO Q12HR #20 tab 05/12/23 Ds] Allergies Allergy/AdvReac Type Severity Reaction Status Date / Time cephalexin [From Keflex] Allergy Rash/Hives Verified 05/04/23 11:58 Review of Systems ROS Statement: Those systems with pertinent positive or pertinent negative responses have been documented in the HPI. ROS Other: All systems not noted in ROS Statement are negative. Past Medical History Past Medical History: Hypertension Additional Past Medical History / Comment(s): celllitis History of Any Multi-Drug Resistant Organisms: None Reported Past Surgical History: No Surgical Hx Reported Past Anesthesia/Blood Transfusion Reactions: No Reported Reaction Past Psychological History: No Psychological Hx Reported Smoking Status: Light tobacco smoker Past Alcohol Use History: Occasional Past Drug Use History: None Reported General Exam Limitations: no limitations General appearance: alert, in no apparent distress Head exam: Present: atraumatic, normocephalic, normal inspection Respiratory exam: Present: normal lung sounds bilaterally. Absent: respiratory distress, wheezes, rales, rhonchi, stridor Cardiovascular Exam: Present: regular rate, normal rhythm, normal heart sounds. Absent: systolic murmur, diastolic murmur, rubs, gallop, clicks Neurological exam: Present: alert Skin exam: Present: warm, dry, intact, normal color, rash Course Vital Signs 05/12/23 05/12/23 12:15 13:14 Temperature 97.7 F 97.9 F Pulse Rate 100 98 Respiratory 20 20 Rate Blood Pressure 181/113 165/89 O2 Sat by Pulse 98 98 Oximetry Medical Decision Making - Medical Decision Making Was pt. sent in by a medical professional or institution (SELENE Fagan, LEGAL BILLING SPECIALIST, urgent care, hospital, or fdc...) When possible be specific @ -No Did you speak to anyone other than the patient for history (EMS, parent, family, police, friend...)? What history was obtained from this source @ -No Did you review nursing and triage notes (agree or disagree)? Why? @ -I reviewed and agree with nursing and triage notes Were old charts reviewed (outside hosp., previous admission, EMS record, old EKG, old radiological studies, urgent care reports/EKG's, fdc records)? Report findings @ -No old charts were reviewed Differential Diagnosis (chest pain, altered mental status, abdominal pain women, abdominal pain men, vaginal bleeding, weakness, fever, dyspnea, syncope, headache, dizziness, GI bleed, back pain, seizure, CVA, palpatations, mental health, musculoskeletal)? @ -Allergic reaction, drug reaction, urticaria EKG interpreted by me (3pts min.). @ -None X-rays interpreted by me (1pt min.). @ -None done CT interpreted by me (1pt min.). @ -None done U/S interpreted by me (1pt. min.). @ -None done What testing was considered but not performed or refused? (CT, X-rays, U/S, labs)? Why? @ -None What meds were considered but not given or refused? Why? @ -None Did you discuss the management of the patient with other professionals (professionals i.e. SELENE Fagan, LEGAL BILLING SPECIALIST, lab, RT, psych nurse, social media analyst, interventionist, teacher, aoc director combat plans officer, embedded case manager)? Give summary @ -No Was smoking cessation discussed for >3mins.? @ -No Was critical care preformed (if so, how long)? @ -No Were there social determinants of health that impacted care today? How? (Homelessness, low income, unemployed, alcoholism, drug addiction, transportation, low edu. Level, literacy, decrease access to med. care, intermediate, rehab)? @ -No Was there de-escalation of care discussed even if they declined (Discuss DNR or withdrawal of care, Hospice)? DNR status @ -No What co-morbidities impacted this encounter? (DM, HTN, Smoking, COPD, CAD, Cancer, CVA, ARF, Chemo, Hep., AIDS, mental health diagnosis, sleep apnea, morbid obesity)? @ -None Was patient admitted / discharged? Hospital course, mention meds given and route, prescriptions, significant lab abnormalities, going to OR and other pertinent info. @ -Charge patient may have rash related to amoxicillin plus allergic reaction he has had issues with Keflex in the past. He will be discontinued from amoxicillin and started on Bactrim for his left leg cellulitis and return parameters were discussed. He is to continue antihistamines Undiagnosed new problem with uncertain prognosis? @ -No Drug Therapy requiring intensive monitoring for toxicity (Heparin, Nitro, Insulin, Cardizem)? @ -No Were any procedures done? @ -No Diagnosis/symptom? @ -Allergic reaction Acute, or Chronic, or Acute on Chronic? @ -Acute Uncomplicated (without systemic symptoms) or Complicated (systemic symptoms)? @ -Uncomplicated Side effects of treatment? @ -No Exacerbation, Progression, or Severe Exacerbation? @ -No Poses a threat to life or bodily function? How? (Chest pain, [place], [place], pneumonia, PE, COPD, DKA, ARF, appy, cholecystitis, CVA, Diverticulitis, Homicidal, Suicidal, threat to staff... and all critical care pts) @ -No Disposition Clinical Impression: Allergic reaction Disposition: HOME SELF-CARE Condition: Stable Instructions (If sedation given, give patient instructions): General Allergic Reaction (ED) Additional Instructions: Please return to the Emergency Department if symptoms worsen or any other concerns. Prescriptions: Sulfamethox-Tmp 800-160Mg [Bactrim Ds] 1 each PO Q12HR #20 tab Is patient prescribed a controlled substance at d/c from ED?: No Referrals: None,Stated [Primary Care Provider] - 1-2 days Time of Disposition: 12:48
[2023-05-12 12:53] VITALS: RESP 20
[2023-05-12] MEDS: DEXAMETHASONE SOD PHOSPHATE 10 MG/ML 1 ML VIAL IM STA (12:56)
[2023-05-12 13:41] VITALS: BP 165/89; PULSE 98; TEMP 97.9
== END 2023-05-12 13:16 | disposition home or self-care (01) ==
LOC: EC 12:12
DX: T78.40XA Allergy, unspecified, initial encounter (principal); F17.200 Nicotine dependence, unspecified, uncomplicated; Z88.1 Allergy status to other antibiotic agents
CPT/HCPCS: 99282; 96372; J1100

== ENCOUNTER 2023-11-14 10:36 | Inpatient (IN) | payer BC ==
--- NOTE | 2023-11-14 11:18 | ED ---
General Adult HPI - General Chief complaint: Skin/Abscess/Foreign Body Stated complaint: leg infection Time Seen by Provider: 11/14/23 10:55 Source: patient Mode of arrival: ambulatory - History of Present Illness Initial comments: 28 year old male presents to the emergency department with chief complaint of left lower extremity swelling. He states that the swelling and redness began this morning. He reports wearing compression stockings as ordered by his infectious disease physician. He has been treated for cellulitis in the past, most recently 6 months ago with keflex and augmentin, which he later reported an allergy to. He reports pain with walking generalized to skin, denies lesions, drainage, impaired ROM to extremity and paresthesia. He denies fevers, shortness of breath, chest pain, and gastrointestinal symptoms. - Related Data Previous Rx's Medication Instructions Recorded Amoxicillin/Potassium Clav 2 tab PO Q12H 10 Days #40 tab 05/07/23 [Augmentin Xr 1,000-62.5 Tab] Metoprolol Tartrate [Lopressor] 25 mg PO BID 30 Days #60 tab 05/07/23 Sulfamethox-Tmp 800-160Mg [Bactrim 1 each PO Q12HR #20 tab 05/12/23 Ds] Allergies Allergy/AdvReac Type Severity Reaction Status Date / Time cephalexin [From Keflex] Allergy Rash/Hives Verified 11/14/23 10:50 Review of Systems ROS Statement: Those systems with pertinent positive or pertinent negative responses have been documented in the HPI. ROS Other: All systems not noted in ROS Statement are negative. Past Medical History Past Medical History: No Reported History Additional Past Medical History / Comment(s): hx celulitis History of Any Multi-Drug Resistant Organisms: None Reported Past Surgical History: No Surgical Hx Reported Past Anesthesia/Blood Transfusion Reactions: No Reported Reaction Past Psychological History: No Psychological Hx Reported Smoking Status: Former smoker Past Alcohol Use History: Occasional Past Drug Use History: None Reported General Exam Limitations: no limitations General appearance: alert, in no apparent distress Head exam: Present: atraumatic, normocephalic, normal inspection Neck exam: Present: normal inspection. Absent: tenderness, meningismus, lympha denopathy Respiratory exam: Present: normal lung sounds bilaterally. Absent: respiratory distress, wheezes, rales, rhonchi, stridor Cardiovascular Exam: Present: normal rhythm, tachycardia, normal heart sounds. Absent: systolic murmur, diastolic murmur, rubs, gallop, clicks Left Lower Leg exam: Present: tenderness, swelling, erythema Course Vital Signs 11/14/23 11/14/23 10:44 11:50 Temperature 100.9 F H 99.1 F Pulse Rate 126 H 109 H Respiratory 18 18 Rate Blood Pressure 145/71 130/76 O2 Sat by Pulse 97 98 Oximetry Medical Decision Making - Medical Decision Making Was pt. sent in by a medical professional or institution (SELENE Fagan, DEMAND PLANNING MANAGER, urgent care, hospital, or long-term...) When possible be specific @ -No Did you speak to anyone other than the patient for history (EMS, parent, family, police, friend...)? What history was obtained from this source @ -No Did you review nursing and triage notes (agree or disagree)? Why? @ -I reviewed and agree with nursing and triage notes Were old charts reviewed (outside hosp., previous admission, EMS record, old EKG, old radiological studies, urgent care reports/EKG's, long-term records)? Report findings @ -No old charts were reviewed Differential Diagnosis (chest pain, altered mental status, abdominal pain women, abdominal pain men, vaginal bleeding, weakness, fever, dyspnea, syncope, headache, dizziness, GI bleed, back pain, seizure, CVA, palpatations, mental health, musculoskeletal)? @ -Cellulitis, sepsis, abscess, erysipelas EKG interpreted by me (3pts min.). @ -None X-rays interpreted by me (1pt min.). @ -None done CT interpreted by me (1pt min.). @ -None done U/S interpreted by me (1pt. min.). @ -None done What testing was considered but not performed or refused? (CT, X-rays, U/S, labs)? Why? @ -None What meds were considered but not given or refused? Why? @ -None Did you discuss the management of the patient with other professionals (professionals i.e. SELENE Fagan, DEMAND PLANNING MANAGER, lab, RT, psych nurse, social science instructor, it business process architect, teacher, ecological technical officer, case picker)? Give summary @ -No Was smoking cessation discussed for >3mins.? @ -No Was critical care preformed (if so, how long)? @ -No Were there social determinants of health that impacted care today? How? (Homelessness, low income, unemployed, alcoholism, drug addiction, tra nsportation, low edu. Level, literacy, decrease access to med. care, retirement, rehab)? @ -No Was there de-escalation of care discussed even if they declined (Discuss DNR or withdrawal of care, Hospice)? DNR status @ -No What co-morbidities impacted this encounter? (DM, HTN, Smoking, COPD, CAD, Cancer, CVA, ARF, Chemo, Hep., AIDS, mental health diagnosis, sleep apnea, morbid obesity)? @ -None Was patient admitted / discharged? Hospital course, mention meds given and route, prescriptions, significant lab abnormalities, going to OR and other pertinent info. @ -Admitted patient is found to have significant left leg cellulitis which is recurrent, leukocytosis and fever concerning for sepsis. Patient started on dual antibiotic therapy, blood cultures. Patient will have CRP added Undiagnosed new problem with uncertain prognosis? @ -No Drug Therapy requiring intensive monitoring for toxicity (Heparin, Nitro, Insulin, Cardizem)? @ -No Were any procedures done? @ -No Diagnosis/symptom? @ -Left leg cellulitis Acute, or Chronic, or Acute on Chronic? @ -Acute Uncomplicated (without systemic symptoms) or Complicated (systemic symptoms)? @ -Complicated Side effects of treatment? @ -No Exacerbation, Progression, or Severe Exacerbation? @ -No Poses a threat to life or bodily function? How? (Chest pain, [place], [place], pneumonia, PE, COPD, DKA, ARF, appy, cholecystitis, CVA, Diverticulitis, Homicidal, [place] icidal, threat to staff... and all critical care pts) @ -Yes possible sepsis endorgan failure - Lab Data Result diagrams: 11/14/23 11:15 11/14/23 11:15 Lab Results 11/14/23 11/14/23 11/14/23 Range/Units 11:15 11:15 11:15 WBC 23.5 H (3.8-10.6) k/uL RBC 4.32 (4.30-5.90) m/uL Hgb 13.0 (13.0-17.5) gm/dL Hct 39.6 (39.0-53.0) % MCV 91.7 (80.0-100.0) fL MCH 30.1 (25.0-35.0) pg MCHC 32.8 (31.0-37.0) g/dL RDW 13.0 (11.5-15.5) % Plt Count 267 (150-450) k/uL MPV 7.8 Neutrophils % 94 % Lymphocytes % 4 % Monocytes % 2 % Eosinophils % 0 % Basophils % 0 % Neutrophils # 22.0 H (1.3-7.7) k/uL Lymphocytes # 1.0 (1.0-4.8) k/uL Monocytes # 0.4 (0-1.0) k/uL Eosinophils # 0.1 (0-0.7) k/uL Basophils # 0.0 (0-0.2) k/uL Sodium 135 L (137-145) mmol/L Potassium 4.0 (3.5-5.1) mmol/L Chloride 103 (98-107) mmol/L Carbon Dioxide 20 L (22-30) mmol/L Anion Gap 12 mmol/L BUN 11 (9-20) mg/dL Creatinine 0.75 (0.66-1.25) mg/dL Est GFR (CKD-EPI)AfAm >90 (>60 ml/min/1.73 sqM) Est GFR (CKD-EPI)NonAf >90 (>60 ml/min/1.73 sqM) Glucose 103 H (74-99) mg/dL Plasma Lactic Acid Nick 2.0 (0.7-2.0) mmol/L Calcium 9.3 (8.4-10.2) mg/dL Total Bilirubin 1.3 (0.2-1.3) mg/dL AST 35 (17-59) U/L ALT 32 (4-49) U/L Alkaline Phosphatase 39 (38-126) U/L Total Protein 7.3 (6.3-8.2) g/dL Albumin 4.2 (3.5-5.0) g/dL Disposition Clinical Impression: Left leg cellulitis, Leukocytosis Disposition: ADMITTED IP TO THIS HOSP Condition: Fair Referrals: None,Stated [Primary Care Provider] - 1-2 days Time of Disposition: 12:11
[2023-11-14] MEDS: SODIUM CHLORIDE 0.9% 1,000 ML IV STA (11:21)
[2023-11-14] MEDS: ACETAMINOPHEN TAB 500 MG TAB PO STA (11:22)
[2023-11-14] MEDS: KETOROLAC 15 MG/ML 1 ML VIAL IVP STA (11:22)
[2023-11-14 11:25] LABS: Basophils % (A) 0 %; Eosinophils # (A) 0.1 k/uL (0-0.7); Eosinophils % (A) 0 %; HCT 39.6 % (39.0-53.0); Lymphocytes % (A) 4 %; MCH 30.1 pg (25.0-35.0); MCHC 32.8 g/dL (31.0-37.0); MCV 91.7 fL (80.0-100.0); Mean Platelet Volume 7.8; Monocytes # (A) 0.4 k/uL (0-1.0); Monocytes % (A) 2 %; Neutrophils % (A) 94 %; Platelet Count 267 k/uL (150-450); RBC 4.32 m/uL (4.30-5.90); WBC 23.5 k/uL (3.8-10.6)
[2023-11-14 11:34] LABS: ALT 32 U/L (4-49); African American GFR (CKD) >90 (>60 ml/min/1.73 sqM); Anion Gap 12 mmol/L; Blood Urea Nitrogen 11 mg/dL (9-20); Calcium 9.3 mg/dL (8.4-10.2); Carbon Dioxide 20 mmol/L (22-30); Chloride 103 mmol/L (98-107); Glucose 103 mg/dL (74-99); Non-African American GFR(CKD) >90 (>60 ml/min/1.73 sqM); Sodium 135 mmol/L (137-145); Total Bilirubin 1.3 mg/dL (0.2-1.3)
[2023-11-14 11:36] LABS: AST 35 U/L (17-59); Albumin 4.2 g/dL (3.5-5.0); Alkaline Phosphatase 39 U/L (38-126); Total Protein 7.3 g/dL (6.3-8.2)
[2023-11-14] MEDS ORDERED: IBUPROFEN 400 MG TAB PO PRN (12:04)
[2023-11-14] MEDS ORDERED: NALOXONE 0.4 MG/ML 1 ML VIAL IV PRN (12:04)
[2023-11-14] MEDS ORDERED: VANCOMYCIN IV PER PHARMACY 1 EACH MISC MISCELLANE PRN (12:08)
[2023-11-14] MEDS: AMPICILLIN-SULBACTAM 3 GM in SODIUM CHLORIDE 0.9% 100 ML IVPB SCH (12:22)
[2023-11-14 12:31] LABS: Glucose,Whole Blood 102 mg/dL (70-110)
[2023-11-14] MEDS: VANCOMYCIN 2,500 MG in SODIUM CHLORIDE 0.9% 500 ML 500 ML IVPB STA (13:12)
[2023-11-14] MEDS: ONDANSETRON 4 MG/2 ML VIAL IVP PRN (13:19)
--- NOTE | 2023-11-14 16:39 | P.HPIM ---
History of Present Illness H&P Date: 11/14/23 Chief Complaint: Red leg Patient is a 28-year-old male with a history of obesity, recurrent cellulitis. The patient states he was seen by infectious disease in the past and was advised to wear his compression stockings. He was last treated with Keflex and Augmentin 6 months ago. The patient states the day prior to admission he developed redness and was concerned he was having cellulitis. Patient states in the morning his pain was about 3-4 [address] walking. He had increased erythema the patient had a temperature of 100.9, pulse 126, respiratory rate 18, systolic blood pressure 145. The patient had a WBC of 23.5. He was hospitalized for further workup and management. Review of Systems All systems: negative Constitutional: Reports fever Integumentary: Reports rash Past Medical History Past Medical History: No Reported History Additional Past Medical History / Comment(s): hx celulitis History of Any Multi-Drug Resistant Organisms: None Reported Past Surgical History: No Surgical Hx Reported Past Anesthesia/Blood Transfusion Reactions: No Reported Reaction Past Psychological History: No Psychological Hx Reported Smoking Status: Former smoker Past Alcohol Use History: Occasional Past Drug Use History: None Reported Medications and Allergies Home Medications Medication Instructions Recorded Confirmed Type No Known Home Medications 11/14/23 11/14/23 History Allergies Allergy/AdvReac Type Severity Reaction Status Date / Time cephalexin [From Keflex] Allergy Rash/Hives Verified 11/14/23 12:40 Physical Exam Vitals: Vital Signs Temp Pulse Pulse Resp BP BP Pulse Ox 11/14/23 13:34 98.8 F 98 16 142/82 96 11/14/23 12:55 99.2 F 105 H 18 126/78 98 11/14/23 11:50 99.1 F 109 H 18 130/76 98 11/14/23 10:44 100.9 F H 126 H 18 145/71 97 Intake and Output 11/14/23 11/14/23 11/14/23 06:59 14:59 22:59 Other: Weight 226.796 kg - Constitutional General appearance: morbidly obese - EENT Eyes: normal appearance - Respiratory Respiratory: bilateral: CTA - Cardiovascular Rhythm: regular - Gastrointestinal General gastrointestinal: normal bowel sounds - Integumentary Integumentary: cellulitis - Neurologic Neurologic: CNII-XII intact - Musculoskeletal Musculoskeletal: strength equal bilaterally - Psychiatric Psychiatric: A&O x's 3 (left foot ), appropriate affect Results CBC & Chem 7: 11/14/23 11:15 11/14/23 11:15 Labs: Abnormal Lab Results - Last 24 Hours (Table) 11/14/23 11/14/23 11/14/23 Range/Units 11:15 11:15 11:15 WBC 23.5 H (3.8-10.6) k/uL Neutrophils # 22.0 H (1.3-7.7) k/uL Sodium 135 L (137-145) mmol/L Carbon Dioxide 20 L (22-30) mmol/L Glucose 103 H (74-99) mg/dL C-Reactive Protein 19.1 H (<1.0) mg/dL Thrombosis Risk Factor Assmnt - Choose All That Apply Any of the Below Risk Factors Present?: Yes Each Factor Represents 1 point: Swollen legs (current) Other Risk Factors: No Other congenital or acquired thrombophilia - If yes, enter type in comment: No Thrombosis Risk Factor Assessment Total Risk Factor Score: 1 Thrombosis Risk Factor Assessment Level: Low Risk Assessment and Plan (1) Sepsis Current Visit: No Status: Acute Code(s): A41.9 - SEPSIS, UNSPECIFIED ORGANISM SNOMED Code(s): 74698097 (2) Left leg cellulitis Narrative/Plan: Secondary to left leg cellulitis. The patient has had recurrent infection. Treated with IV vancomycin, patient allergic to cephalexin and IV Unasyn. Will continue sepsis protocol. Current Visit: Yes Status: Acute Code(s): L03.116 - CELLULITIS OF LEFT LOWER LIMB SNOMED Code(s): 46859516310862759 (3) Cellulitis Narrative/Plan: Recurrent cellulitis seen infectious disease in the past. Will continue to monitor if not improving will consult infectious disease. Current Visit: No Status: Acute Code(s): L03.90 - CELLULITIS, UNSPECIFIED SNOMED Code(s): 429075508 Plan: Sepsis protocol, IV antibiotics, pain control.
[2023-11-14] MEDS: SODIUM CHLORIDE 0.9% 1,000 ML IV SCH (17:10)
[2023-11-14] MEDS: VANCOMYCIN 2,500 MG in SODIUM CHLORIDE 0.9% 500 ML 500 ML IVPB SCH (20:54)
[2023-11-14] MEDS: ACETAMINOPHEN TAB 325 MG TAB PO PRN (22:45)
[2023-11-15] MEDS: KETOROLAC 15 MG/ML 1 ML VIAL IVP PRN (06:10)
[2023-11-15 09:17] LABS: Basophils # (A) 0.04 X 10*3/uL (0.00-0.10); Basophils % (A) 0.3 %; Eosinophils # (A) 0.01 X 10*3/uL (0.04-0.35); Eosinophils % (A) 0.1 %; HCT 36.4 % (39.6-50.0); HGB 11.6 g/dL (13.0-17.0); Lymphocytes # (A) 0.99 X 10*3/uL (0.90-5.00); Lymphocytes % (A) 6.5 %; MCH 29.7 pg (27.0-32.0); MCHC 31.9 g/dL (32.0-37.0); MCV 93.3 FL (80.0-97.0); Mean Platelet Volume 11.1 FL (9.5-12.2); Monocytes # (A) 0.72 X 10*3/uL (0.20-1.00); Monocytes % (A) 4.7 %; NRBC Per 100 WBC 0 X 10*3/uL (0.00-0.01); Neutrophils # (A) 13.42 X 10*3/uL (1.80-7.70); Neutrophils % (A) 87.9 %; Platelet Count 213 X 10*3/uL (140-440); RDW 13.3 % (11.5-14.5); WBC 15.25 X 10*3/uL (4.50-10.00)
[2023-11-15 10:31] LABS: BUN/Creat Ratio 9.78 Ratio (12.00-20.00); Blood Urea Nitrogen 8.8 mg/dL (9.0-27.0); Calcium 8.2 mg/dL (8.7-10.3); Carbon Dioxide 22.8 mmol/L (21.6-31.8); Chloride 102 mmol/L (96-109); Glucose 96 mg/dL (70-110); Potassium 4.2 mmol/L (3.5-5.5); Sodium 135 mmol/L (135-145)
--- NOTE | 2023-11-15 17:01 | P.PN ---
Subjective Progress Note Date: 11/15/23 (Delayed charting seen at 0905) Patient seen and examined at bedside. Feeling better today. Still having some pain in his leg. Denies any nausea, vomiting, or diarrhea. Vital signs reviewed General: Nontoxic, no distress, appears at stated age, Obese Cardiovascular: S1S2 reg, no murmur Lungs: CTA bilateral, no rhonchi, no rales, no accessory muscle use Abdominal: Soft, nontender to palpation, no guarding Ext: No gross muscle atrophy, no edema b/l lower extremities, no contractures, left lower extremity with erythema from ankle to knee circumferential with swelling, clifford appearance, no areas of fluctuance, extending beyond the lines marked yesterday Neuro: CN II-XI grossly intact, no focal neuro deficits Psych: Alert, oriented, appropriate affect Assessment/Plan: Recurrent cellulitis in the setting of class IV obesity with sepsis as evidenced by temperature 100.9, pulse of 126, and white blood cell count of 23.5 on arrival without endorgan damage. -Continue with Unasyn 3 g IV piggyback every 6 hours and vancomycin with pharmacy dosing per weight and trough -Decrease normal saline to 75 cc/h -Repeat CBC in a.m. -Toradol 15 mg IV every 6 hours as needed for pain Hyperglycemia -Screen for diabetes. Check A1c. -Repeat BMP in a.m. to check glucose level. Imaging: None new Data Review: CBC remarkable for white blood cell count of 15.25 and hemoglobin of 11.9, BMP remarkable for blood glucose of 96 DVT prophylaxis: Start heparin 7500 mg SQ 3 times daily Anticipated discharge date: Pending clinical course Anticipated discharge place: Pending clinical course This dictation was prepared using [employer] voice recognition software. Though every attempt is made to correct errors during dictation some may still exist. Objective - Vital Signs Vital signs: Vital Signs Temp 98.0 F 11/15/23 12:35 Pulse 95 11/15/23 12:35 Resp 16 11/15/23 12:35 BP 126/68 11/15/23 12:35 Pulse Ox 99 11/15/23 12:35 FiO2 Intake & Output 11/14/23 11/15/23 11/15/23 18:59 06:59 18:59 Intake Total 1750 960 Balance 1750 960 Weight 226.796 kg Intake: Intake, IV Titration 1750 Amount Ampicillin-Sulbactam 3 gm 200 In Sodium Chloride 0.9% 100 ml @ 200 mls/hr IVPB Q6HR [facility] Rx#:[id number] Sodium Chloride 0.9% 1, 1050 000 ml @ 150 mls/hr IV . Q6H40M [facility] Rx#:[id number] Vancomycin 2,500 mg In 500 Sodium Chloride 0.9% 500 ml 500 ml @ 167 mls/hr IVPB [facility] Rx#: [id number] Oral 960 Other: Voiding Method Toilet # Voids 2 - Labs CBC & Chem 7: 11/15/23 04:29 11/15/23 04:29 Labs: Abnormal Lab Results - Last 24 Hours (Table) 11/15/23 11/15/23 Range/Units 04:29 04:29 WBC 15.25 H (4.50-10.00) X 10*3/uL RBC 3.90 L (4.40-5.60) X 10*6/uL Hgb 11.6 L (13.0-17.0) g/dL Hct 36.4 L (39.6-50.0) % MCHC 31.9 L (32.0-37.0) g/dL Immature Gran # 0.07 H (0.00-0.04) X 10*3/uL Neutrophils # 13.42 H (1.80-7.70) X 10*3/uL Eosinophils # 0.01 L (0.04-0.35) X 10*3/uL BUN 8.8 L (9.0-27.0) mg/dL BUN/Creatinine Ratio 9.78 L (12.00-20.00) Ratio Calcium 8.2 L (8.7-10.3) mg/dL
[2023-11-15] MEDS: HEPARIN SODIUM,PORCINE 5,000 UNIT/ML 1 ML VIAL SQ SCH (23:55)
[2023-11-16 08:42] LABS: HCT 34.1 % (39.6-50.0); HGB 10.8 g/dL (13.0-17.0); MCH 30.3 pg (27.0-32.0); MCHC 31.7 g/dL (32.0-37.0); MCV 95.5 FL (80.0-97.0); Mean Platelet Volume 11.2 FL (9.5-12.2); NRBC Per 100 WBC 0 X 10*3/uL (0.00-0.01); Platelet Count 213 X 10*3/uL (140-440); RBC 3.57 X 10*6/uL (4.40-5.60); RDW 13.3 % (11.5-14.5); WBC 8.91 X 10*3/uL (4.50-10.00)
[2023-11-16 08:51] LABS: BUN/Creat Ratio 7.89 Ratio (12.00-20.00); Blood Urea Nitrogen 7.1 mg/dL (9.0-27.0); Calcium 8.3 mg/dL (8.7-10.3); Carbon Dioxide 24.7 mmol/L (21.6-31.8); Chloride 105 mmol/L (96-109); Glucose 99 mg/dL (70-110); Potassium 3.9 mmol/L (3.5-5.5); Sodium 139 mmol/L (135-145)
[2023-11-16] MEDS: NYSTATIN 100,000UNIT/GM CREAM 30 GM TUBE TOPICAL SCH (13:14)
--- NOTE | 2023-11-16 13:54 | P.PN ---
Subjective Progress Note Date: 11/16/23 28 year old M with PMH of obesity presents to the ED for LLE redness and erythema. In the ED he underwent extensive evaluation. BP 145/71, HR 126, T 100.9F, RR 18, 97% on RA. CBC and CMP significant for WBC 23.5, Na 135, bicarb 20, glu 103. CRP 19.1. Lactic acid 2.0. Started on Vancomycin and Unasyn and a dmitted for further workup and management. 11/15 Patient was seen and examined. Minimal improvement in LLE erythema. Maintained on Vancomycin and Unasyn. Discussed with Dr. Pizarro. CBC and BMP significant for RBC 3.57, Hg 10.8, Hct 34.1, BUN 7.1, Ca 8.3. A1c 5.5. BCx prelim negative. General: non toxic, no distress, appears at stated age Derm: warm, dry Head: atraumatic, normocephalic, symmetric Eyes: EOMI, no lid lag, anicteric sclera Mouth: no lip lesion, mucus membranes moist Cardiovascular: good distal perfusion in all 4 extremities. Lungs: breathing comfortably, no accessory muscle use Ext: no gross muscle atrophy, no edema, no contractures, LLE extensive erythema from ankle to knee circumferential with swelling Neuro: no focal neuro deficits Psych: Alert, oriented, appropriate affect Based on my assessment of this patient, this patient meets a high complexity level of care. Sepsis due to LLE cellulitis: Continue with Unasyn 3 g IV piggyback every 6 hours and vancomycin with pharmacy dosing per weight and trough. Monitor renal function while on Vancomycin. Toradol 15 mg IV Q6H PRN for pain. Morbid obesity with BMI 67.8: Patient would benefit from a structured weight loss program. CODE STATUS: FULL CODE. DVT Prophylaxis: Heparin SQ GI Prophylaxis: Designated medical POA if patient is not able to make medical decisions for themselves: I have reviewed the following vocational rehabilitation consultant notes: I have reviewed the results of the following tests: CBC, BMP, BCx. I have ordered the following tests: I have discussed the care of this patient with the following independent historian: I have independently interpreted the following test below: I have discussed the management of this patient with the following physician: Dr. Pizarro. Objective - Vital Signs Vital signs: Vital Signs Temp 98.4 F 11/16/23 13:17 Pulse 98 10/07/24 13:17 Resp 16 11/16/23 13:17 BP 156/80 11/16/23 13:17 Pulse Ox 97 11/16/23 13:17 FiO2 Intake & Output 11/15/23 11/16/23 11/16/23 18:59 06:59 18:59 Intake Total 2280 725 960 Balance 2280 725 960 Intake: Intake, IV Titration 725 Amount Ampicillin-Sulbactam 3 gm 200 In Sodium Chloride 0.9% 100 ml @ 200 mls/hr IVPB Q6HR [facility] Rx#:[id number] Sodium Chloride 0.9% 1, 525 000 ml @ 75 mls/hr IV . [id number] [facility] Rx#:[id number] Oral 2280 960 Other: Voiding Method Toilet # Voids 7 1 - Labs CBC & Chem 7: 11/16/23 06:08 11/16/23 06:08 Labs: Abnormal Lab Results - Last 24 Hours (Table) 11/16/23 11/16/23 Range/Units 06:08 06:08 RBC 3.57 L (4.40-5.60) X 10*6/uL Hgb 10.8 L (13.0-17.0) g/dL Hct 34.1 L (39.6-50.0) % MCHC 31.7 L (32.0-37.0) g/dL BUN 7.1 L (9.0-27.0) mg/dL BUN/Creatinine Ratio 7.89 L (12.00-20.00) Ratio Calcium 8.3 L (8.7-10.3) mg/dL Microbiology - Last 24 Hours (Table) 11/14/23 12:15 Blood Culture - Preliminary Blood
[2023-11-16] MEDS ORDERED: VANCOMYCIN TROUGH DUE 1 EACH MISC MISCELLANE ONE (20:00)
--- NOTE | 2023-11-17 07:51 | P.CONS ---
History of Present Illness - Reason for Consult Consult date: 11/16/23 Left leg cellulitis Requesting physician: Manuel Farias - Chief Complaint Left leg swelling and redness x days - History of Present Illness Patient is a 28-year-old male with a past medical history significant for recurrent left lower extremity cellulitis and athlete's foot presenting to the hospital 2 days ago for evaluation of increasing swelling and redness to the left lower extremity that apparently started the day of presentation to the hospital patient did have low-grade fever 100.9 admission subsequently temperature of 101 F patient was complaining of pain to the left lower extremity mostly dull aching to sharp moderate intensity without radiation did have diffuse swelling and redness to the left leg did not have any open wound or any blister patient was started on vancomycin and Unasyn infectious disease was consulted for further management of antibiotic therapy today patient did have a elevated white count 23.5 on admission with a left shift creatinine has been normal liver enzymes are normal blood cultures obtained which are currently pending Review of Systems Positive point and negatives has been mentioned in the HPI, complete review of systems was performed and all other systems are negative Past Medical History Past Medical History: No Reported History Additional Past Medical History / Comment(s): hx celulitis History of Any Multi-Drug Resistant Organisms: None Reported Past Surgical History: No Surgical Hx Reported Past Anesthesia/Blood Transfusion Reactions: No Reported Reaction Past Psychological History: No Psychological Hx Reported Smoking Status: Former smoker Past Alcohol Use History: Occasional Past Drug Use History: None Reported Medications and Allergies Home Medications Medication Instructions Recorded Confirmed Type No Known Home Medications 11/14/23 11/14/23 History Allergies Allergy/AdvReac Type Severity Reaction Status Date / Time cephalexin [From Keflex] Allergy Rash/Hives Verified 11/14/23 12:40 Physical Exam Vitals: Vital Signs Temp Pulse Resp BP Pulse Ox 11/16/23 07:35 98.3 F 87 16 155/84 97 11/16/23 01:26 98.2 F 84 18 143/81 99 11/15/23 19:23 98.0 F 98 18 162/73 99 11/15/23 12:35 98.0 F 95 16 126/68 99 Intake and Output 11/15/23 11/16/23 11/16/23 22:59 06:59 14:59 Intake Total 1320 725 480 Balance 1320 725 480 Intake: Intake, IV Titration 725 Amount Ampicillin-Sulbactam 3 gm 200 In Sodium Chloride 0.9% 100 ml @ 200 mls/hr IVPB Q6HR [facility] Rx#:[id number] Sodium Chloride 0.9% 1, 525 000 ml @ 75 mls/hr IV . [id number] [facility] Rx#:[id number] Oral 1320 480 Other: Voiding Method Toilet # Voids 7 1 GENERAL DESCRIPTION: Middle-aged male lying in bed, no distress. No tachypnea or accessory muscle of respiration use. HEENT: Shows Pallor , no scleral icterus. Oral mucous membrane is dry. No pharyngeal erythema or thrush NECK: Trachea central, no thyromegaly. LUNGS: Unlabored breathing. Clear to auscultation anteriorly. No wheeze or crackle. HEART: S1, S2, regular rate and rhythm. No loud murmur ABDOMEN: Soft, no tenderness , guarding or rigidity, no organomegaly EXTREMITIES: Left lower extremity diffuse swelling redness which is warm to touch with evidence of athlete's foot SKIN: No rash, no masses palpable. NEUROLOGICAL: The patient is awake, alert, oriented x3, mood and affect normal. Results CBC & Chem 7: 11/16/23 06:08 11/16/23 06:08 Labs: Abnormal Lab Results - Last 24 Hours (Table) 11/16/23 11/16/23 Range/Units 06:08 06:08 RBC 3.57 L (4.40-5.60) X 10*6/uL Hgb 10.8 L (13.0-17.0) g/dL Hct 34.1 L (39.6-50.0) % MCHC 31.7 L (32.0-37.0) g/dL BUN 7.1 L (9.0-27.0) mg/dL BUN/Creatinine Ratio 7.89 L (12.00-20.00) Ratio Calcium 8.3 L (8.7-10.3) mg/dL Microbiology - Last 24 Hours (Table) 11/14/23 12:15 Blood Culture - Preliminary Blood Assessment and Plan (1) Athlete's foot on left Current Visit: Yes Status: Acute Code(s): B35.3 - TINEA PEDIS SNOMED Code(s): 8366922 (2) Left leg cellulitis Current Visit: Yes Status: Acute Code(s): L03.116 - CELLULITIS OF LEFT LOWER LIMB SNOMED Code(s): 49529420866763523 (3) Leukocytosis Current Visit: Yes Status: Acute Code(s): D72.829 - ELEVATED WHITE BLOOD CELL COUNT, UNSPECIFIED SNOMED Code(s): 215705362 (4) Allergy to cephalosporin Current Visit: No Status: Acute Code(s): Z88.1 - ALLERGY STATUS TO OTHER ANTIBIOTIC AGENTS SNOMED Code(s): 954067191 (5) Sepsis Current Visit: No Status: Acute Code(s): A41.9 - SEPSIS, UNSPECIFIED ORGANISM SNOMED Code(s): 09564476 Plan: 1patient presented hospital with sepsis in this patient who did have fever elevated white count meeting creatinine/cirrhosis left lower extremity cellulitis with diffuse swelling and redness and rapid progression more likely representing streptococcal cellulitis patient also have evidence of athlete's foot that may be contributing to recurrent episodes of cellulitis. 2patient with cephalexin allergy that will limit the number of antibiotics safe to use. 3patient to continue with Unasyn 3 g every 6 hours however discontinue vancomycin as clinical suspicion low for MRSA infection. 4nystatin cream in between the toes twice a day. 5Ace wrap to the left leg to keep some of the swelling down We will follow on clinical condition and cultures to further adjust medication if needed Thank you for this consultation we will follow the patient along with you Dictation was produced using [employer] dictation software. please excuse any grammatical, word or spelling errors. Time with Patient: Greater than 30
--- NOTE | 2023-11-17 11:29 | P.PN ---
Subjective Progress Note Date: 11/17/23 28 year old M with PMH of obesity presents to the ED for LLE redness and erythema. In the ED he underwent extensive evaluation. BP 145/71, HR 126, T 100.9F, RR 18, 97% on RA. CBC and CMP significant for WBC 23.5, Na 135, bicarb 20, glu 103. CRP 19.1. Lactic acid 2.0. Started on Vancomycin and Unasyn and a dmitted for further workup and management. 11/15 Patient was seen and examined. Minimal improvement in LLE erythema. Maintained on Vancomycin and Unasyn. Discussed with Dr. Pizarro. CBC and BMP significant for RBC 3.57, Hg 10.8, Hct 34.1, BUN 7.1, Ca 8.3. A1c 5.5. BCx prelim negative. 11/16 Patient was seen and examined. Reports improvement in LLE erythema. ID discontinued Vancomycin yesterday. No new labs today. BCx remains negative. General: non toxic, no distress, appears at stated age Derm: warm, dry Head: atraumatic, normocephalic, symmetric Eyes: EOMI, no lid lag, anicteric sclera Mouth: no lip lesion, mucus membranes moist Cardiovascular: good distal perfusion in all 4 extremities. Lungs: breathing comfortably, no accessory muscle use Ext: no gross muscle atrophy, no edema, no contractures, LLE extensive erythema from ankle to knee circumferential with swelling (improved) Neuro: no focal neuro deficits Psych: Alert, oriented, appropriate affect Based on my assessment of this patient, this patient meets a high complexity level of care. Sepsis due to LLE cellulitis: Continue with Unasyn 3 g IV piggyback every 6 hours. Toradol 15 mg IV Q6H PRN for pain. ID on board. Morbid obesity with BMI 67.8: Patient would benefit from a structured weight loss program. CODE STATUS: FULL CODE. DVT Prophylaxis: Heparin SQ GI Prophylaxis: Designated medical POA if patient is not able to make medical decisions for themselves: I have reviewed the following successfactors consultant notes: I have reviewed the results of the following tests: BCx. I have ordered the following tests: I have discussed the care of this patient with the following independent historian: I have independently interpreted the following test below: I have discussed the management of this patient with the following physician: Objective - Vital Signs Vital signs: Vital Signs Temp 98.3 F 11/17/23 07:28 Pulse 87 11/17/23 07:28 Resp 16 11/17/23 07:28 BP 145/77 11/17/23 07:28 Pulse Ox 98 11/17/23 07:28 FiO2 Intake & Output 11/16/23 11/17/23 11/17/23 18:59 06:59 18:59 Intake Total 2280 925 Output Total 1 Balance 2279 925 Intake: Intake, IV Titration 925 Amount Ampicillin-Sulbactam 3 gm 100 In Sodium Chloride 0.9% 100 ml @ 200 mls/hr IVPB Q6HR [facility] Rx#:[id number] Sodium Chloride 0.9% 1, 825 000 ml @ 75 mls/hr IV . [id number] [facility] Rx#:[id number] Oral 2280 Output: Stool 1 Other: Voiding Method Toilet Toilet # Voids 5 2 - Labs CBC & Chem 7: 11/16/23 06:08 11/16/23 06:08 Labs: Microbiology - Last 24 Hours (Table) 11/14/23 12:15 Blood Culture - Preliminary Blood
--- NOTE | 2023-11-17 14:24 | P.PN ---
Subjective Progress Note Date: 11/17/23 Principal diagnosis: Reason for follow-up is left lower extremity cellulitis and athlete's foot Patient is a 28-year-old male with a past medical history significant for recurrent left lower extremity cellulitis and athlete's foot presenting to the hospital with increasing swelling redness of the left leg has been diagnosed with a cellulitis prompted this consultation. On today's evaluation that is 11/17/2023, the patient continues to be afebrile, the patient is on room air and breathing comfortably, the Pt denies having any chest pain or cough, the patient denies having any abdominal pain no vomiting or any diarrhea, denies any worsening pain swelling or redness to the left leg. Patient did not have any lab draw today blood cultures currently pending Objective - Vital Signs Vital signs: Vital Signs Temp 98.2 F 11/17/23 13:11 Pulse 88 11/17/23 13:11 Resp 16 11/17/23 13:11 BP 164/94 11/17/23 13:11 Pulse Ox 100 11/17/23 13:11 FiO2 Intake & Output 11/16/23 11/17/23 11/17/23 18:59 06:59 18:59 Intake Total 2280 925 Output Total 1 Balance 2279 925 Intake: Intake, IV Titration 925 Amount Ampicillin-Sulbactam 3 gm 100 In Sodium Chloride 0.9% 100 ml @ 200 mls/hr IVPB Q6HR [facility] Rx#:[id number] Sodium Chloride 0.9% 1, 825 000 ml @ 75 mls/hr IV . [id number] [facility] Rx#:[id number] Oral 2280 Output: Stool 1 Other: Voiding Method Toilet Toilet # Voids 5 2 - Exam GENERAL DESCRIPTION: Middle-age male lying in bed in no distress RESPIRATORY SYSTEM: Unlabored breathing , decreased breath sounds at bases HEART: S1 S2 regular rate and rhythm , ABDOMEN: Soft , no tenderness EXTREMITIES: Left leg currently wrapped in Gopi wrap still have significant swelling and redness - Labs CBC & Chem 7: 11/16/23 06:08 11/16/23 06:08 Labs: Microbiology - Last 24 Hours (Table) 11/14/23 12:15 Blood Culture - Preliminary Blood Assessment and Plan (1) Athlete's foot on left Current Visit: Yes Status: Acute Code(s): B35.3 - TINEA PEDIS SNOMED Code(s): 1390837 (2) Left leg cellulitis Current Visit: Yes Status: Acute Code(s): L03.116 - CELLULITIS OF LEFT LOWER LIMB SNOMED Code(s): 40831150156955956 (3) Leukocytosis Current Visit: Yes Status: Acute Code(s): D72.829 - ELEVATED WHITE BLOOD NOREEN L COUNT, UNSPECIFIED SNOMED Code(s): 564691188 (4) Allergy to cephalosporin Current Visit: No Status: Acute Code(s): Z88.1 - ALLERGY STATUS TO OTHER ANTIBIOTIC AGENTS SNOMED Code(s): 475914793 (5) Sepsis Current Visit: No Status: Acute Code(s): A41.9 - SEPSIS, UNSPECIFIED ORGANISM SNOMED Code(s): 08471553 Plan: 1patient presented hospital with sepsis in this patient who did have fever elevated white count meeting creatinine/cirrhosis left lower extremity cellulitis with diffuse swelling and redness and rapid progression more likely representing streptococcal cellulitis patient also have evidence of athlete's foot that may be contributing to recurrent episodes of cellulitis. 2patient with cephalexin allergy that will limit the number of antibiotics safe to use. 3patient to continue withnystatin cream in between the toes twice a day. 5Ace wrap to the left leg to keep some of the swelling down along with Unasyn for another 24-hour before transitioning to oral antibiotic discussed with admitting physician Dictation was produced using [employer] dictation software. please excuse any grammatical, word or spelling errors. Time with Patient: Less than 30
[2023-11-18] MEDS: LISINOPRIL-HCTZ 10-12.5 MG 1 EACH TAB PO SCH (09:46)
[2023-11-18 12:34] VITALS: BP 144/85; PULSE 93; RESP 17; TEMP 97.6
--- NOTE | 2023-11-18 13:34 | P.DS ---
Providers Date of admission: 11/14/23 11:58 Expected date of discharge: 11/18/23 Attending physician: Enoch Rodriguez MD Consults: 11/16/23 10:43 Consult Physician Routine Consulting Provider: Asia Pizarro Consult Reason/Comments: cellulitis Do you want consulting provider notified?: Yes Primary care physician: Stated None Hospital Course: 28 year old M with PMH of obesity presents to the ED for LLE redness and erythema. In the ED he underwent extensive evaluation. BP 145/71, HR 126, T 100.9F, RR 18, 97% on RA. CBC and CMP significant for WBC 23.5, Na 135, bicarb 20, glu 103. CRP 19.1. Lactic acid 2.0. Started on Vancomycin and Unasyn and admitted for further workup and management. 11/15 Patient was seen and examined. Minimal improvement in LLE erythema. Maintained on Vancomycin and Unasyn. Discussed with Dr. Pizarro. CBC and BMP significant for RBC 3.57, Hg 10.8, Hct 34.1, BUN 7.1, Ca 8.3. A1c 5.5. BCx prelim negative. 11/16 Patient was seen and examined. Reports improvement in LLE erythema. ID discontinued Vancomycin yesterday. No new labs today. BCx remains negative. 11/17 Patient was seen and examined. Significant improved in LLE erythema. Dr. Pizarro recommends Amoxcillin 1g PO BID x 10 days and outpatient follow up. Plans for discharge home today. General: non toxic, no distress, appears at stated age Derm: warm, dry Head: atraumatic, normocephalic, symmetric Eyes: EOMI, no lid lag, anicteric sclera Mouth: no lip lesion, mucus membranes moist Cardiovascular: good distal perfusion in all 4 extremities. Lungs: breathing comfortably, no accessory muscle use Ext: no gross muscle atrophy, no edema, no contractures, LLE extensive erythema from ankle to knee circumferential with swelling (significantly improved) Neuro: no focal neuro deficits Psych: Alert, oriented, appropriate affect Discharge Diagnosis: Sepsis due to LLE cellulitis Morbid obesity with BMI 67.8 This complex discharge took 35 minutes to complete. Patient Condition at Discharge: Stable Plan - Discharge Summary Discharge Rx Participant: No New Discharge Prescriptions: New Amoxicillin/Potassium Clav [Augmentin Xr 1,000-62.5 Tab] 1 tab PO Q12H #20 tab Nystatin 100,000Unit/gm Cream [Mycostatin Cream] 1 applic TOPICAL BID #30 gm Discharge Medication List Amoxicillin/Potassium Clav [Augmentin Xr 1,000-62.5 Tab] 1 tab PO Q12H #20 tab 11/18/23 [Rx] Nystatin 100,000Unit/gm Cream [Mycostatin Cream] 1 applic TOPICAL BID #30 gm 11/18/23 [Rx] Follow up Appointment(s)/Referral(s): None,Stated [Primary Care Provider] - 1-2 days Asia Pizarro MD [STAFF PHYSICIAN] - 11/25/23 3:00 pm () Patient Instructions/Handouts: Cellulitis (GEN) Discharge/Stand Alone Forms: [facility] PCPs Discharge Disposition: HOME SELF-CARE
--- NOTE | 2023-11-19 14:13 | P.PN ---
Subjective Progress Note Date: 11/18/23 Principal diagnosis: Reason for follow-up is left lower extremity cellulitis and athlete's foot Patient is a 28-year-old male with a past medical history significant for recurrent left lower extremity cellulitis and athlete's foot presenting to the hospital with increasing swelling redness of the left leg has been diagnosed with a cellulitis prompted this consultation. On today's evaluation that is 11/18/2023, Patient is afebrile patient is currently on room air and denies having any shortness of breath, the patient denies any chest pain or cough, the patient denies any nausea vomiting did not have any abdominal pain and no diarrhea left lower extremity swelling redness is much improved. No new lab has been repeated blood culture has been negative Objective - Vital Signs Vital signs: Vital Signs Temp 97.9 F 11/18/23 07:46 Pulse 92 11/18/23 07:46 Resp 16 11/18/23 07:46 BP 169/82 11/18/23 07:46 Pulse Ox 97 11/18/23 07:46 FiO2 Intake & Output 11/17/23 11/18/23 11/18/23 18:59 06:59 18:59 Intake Total 1320 Balance 1320 Intake: Oral 1320 Other: Voiding Method Toilet # Voids 1 - Exam GENERAL DESCRIPTION: Middle-age male lying in bed in no distress RESPIRATORY SYSTEM: Unlabored breathing , decreased breath sounds at bases HEART: S1 S2 regular rate and rhythm , ABDOMEN: Soft , no tenderness EXTREMITIES: Left leg swelling redness has decreased no blister no drainage - Labs CBC & Chem 7: 11/16/23 06:08 11/16/23 06:08 Labs: Microbiology - Last 24 Hours (Table) 11/14/23 12:15 Blood Culture - Preliminary Blood Assessment and Plan (1) Athlete's foot on left Status: Acute Code(s): B35.3 - TINEA PEDIS SNOMED Code(s): 5905393 (2) Left leg cellulitis Status: Acute Code(s): L03.116 - CELLULITIS OF LEFT LOWER LIMB SNOMED Code(s): 08252231567831674 (3) Leukocytosis Status: Acute Code(s): D72.829 - ELEVATED WHITE BLOOD CELL COUNT, UNSPECIFIED SNOMED Code(s): 623554325 (4) Allergy to cephalosporin Status: Acute Code(s): Z88.1 - ALLERGY STATUS TO OTHER ANTIBIOTIC AGENTS SNOMED Code(s): 330768020 (5) Sepsis Status: Acute Code(s): A41.9 - SEPSIS, UNSPECIFIED ORGANISM SNOMED Code(s): 49955979 Plan: 1patient presented hospital with sepsis in this patient who did have fever elevated white count meeting creatinine/cirrhosis left lower extremity cellulitis with diffuse swelling and redness and rapid progression more likely representing streptococcal cellulitis patient also have evidence of athlete's foot that may be contributing to recurrent episodes of cellulitis. 2patient with cephalexin allergy that will limit the number of antibiotics safe to use. 3patient to continue withnystatin cream in between the toes twice a day x 7 days on discharge prescription have been sent. 5patient did have improvement to the left lower extremity cellulitis he will finish therapy with oral Augmentin prescription has been sent to the pharmacy and close outpatient follow-up advised to continue with the Gopi wrap for compression to keep the swelling down Dictation was produced using [employer] dictation software. please excuse any grammatical, word or spelling errors. Time with Patient: Less than 30
== END 2023-11-18 14:17 | disposition home or self-care (01) | DRG 872 ==
LOC: EC 10:36 → 5NMEDONC 11:58
PROVIDERS: ADMIT Internal Medicine; ATTEND Internal Medicine
DX: A41.9 Sepsis, unspecified organism (principal); L03.116 Cellulitis of left lower limb; Z68.44 Body mass index [BMI] 60.0-69.9, adult; E66.01 Morbid (severe) obesity due to excess calories; R73.9 Hyperglycemia, unspecified; B35.3 Tinea pedis; Z88.1 Allergy status to other antibiotic agents; Z87.891 Personal history of nicotine dependence
CPT/HCPCS: 36415; 80048; 80053; 83036; 83605; 85025; 85027; 86140; 87040; 96361; 96374; 99285